=== PATIENT | female | born 1945 | race African-American/Black ===

== ENCOUNTER → 2016-03-08 | Outpatient (CLI) | payer MEDICARE, MEDICAID | LOC: RAD 06:39 | PROVIDERS: ATTEND Internal Medicine | DX: R63.4 Abnormal weight loss (principal); R10.9 Unspecified abdominal pain; R10.2 Pelvic and perineal pain; R07.9 Chest pain, unspecified | CPT/HCPCS: 71260; 74177; 82565 ==

== ENCOUNTER 2016-05-22 18:07 | Emergency (ER) | payer MEDICARE, MEDICAID ==
[2016-05-22] MEDS ORDERED: ASPIRIN 81 MG TABLET, CHEWABLE PO ONE (18:19)
--- NOTE | 2016-05-22 19:04 | EKG REPORT ---
SEVERITY:- ABNORMAL ECG - SINUS RHYTHM RIGHT BUNDLE BRANCH BLOCK ANTERIOR Q WAVES, POSSIBLY DUE TO LVH : Confirmed by: Brennen Stanton MD 22-May-2016 19:03:40
[2016-05-22 19:05] LABS: ABSOLUTE MONOCYTES (AUTO) 0.4 10^3/uL (0.1-1.4); BASOPHILS % (AUTO) 0.5 % (0-2); EOSINOPHILS % (AUTO) 0.5 % (0-6); HEMATOCRIT 32.5 % (36.0-47.0); HEMOGLOBIN 10.6 g/dL (12.0-15.5); HGB HCT DIFFERENCE -0.7; LYMPHOCYTES % (AUTO) 28.5 % (13-45); MEAN CORPUSCULAR HEMOGLOBIN 26.6 pg (27.0-33.4); MEAN CORPUSCULAR HGB CONC 32.6 g/dL (32.0-36.0); MEAN CORPUSCULAR VOLUME 82 fl (80-97); MONOCYTES % (AUTO) 12.5 % (3-13); RED BLOOD COUNT 3.98 10^6/uL (3.72-5.28); RED CELL DISTRIBUTION WIDTH 14.9 % (11.5-14.0); WHITE BLOOD COUNT 3.5 10^3/uL (4.0-10.5)
[2016-05-22 19:22] LABS: ALANINE AMINOTRANSFERASE 31 U/L (9-52); ALKALINE PHOSPHATASE 85 U/L (38-126); ANION GAP 12 (5-19); ASPARTATE AMINO TRANSFERASE 36 U/L (14-36); BILIRUBIN,DIRECT 0.1 mg/dL (0.0-0.4); BILIRUBIN,TOTAL 0.7 mg/dL (0.2-1.3); BLOOD UREA NITROGEN 18 mg/dL (7-20); CALCIUM 9.4 mg/dL (8.4-10.2); CARBON DIOXIDE 25 mmol/L (22-30); CHLORIDE 107 mmol/L (98-107); CREATINE KINASE 141 U/L (30-135); CREATININE RESULT 1.41 mg/dL (0.52-1.25); GLUCOSE 93 mg/dL (75-110); POTASSIUM 4.6 mmol/L (3.6-5.0); SODIUM 143.8 mmol/L (137-145); TOTAL PROTEIN 7.1 g/dL (6.3-8.2)
[2016-05-22 19:34] LABS: CREATINE KINASE MB 0.69 ng/mL (<4.55)
[2016-05-22 19:35] LABS: TROPONIN I < 0.012 ng/mL
[2016-05-22] MEDS ORDERED: FENTANYL CITRATE INJ/PF 100 MCG/2 ML AMPUL IV PRN (19:52)
--- NOTE | 2016-05-22 20:04 | ER Document Report ---
ED General - General Chief Complaint: Chest Pain > 30 Stated Complaint: CHEST PAIN/FALL,HEAD AND WRIST PAIN Notes: Patient is a 70-year-old female with past medical history of congestive heart failure, coronary artery disease, hypertension, hyperlipidemia who presents after an episode of chest pain that preceded a syncopal event when she was walking up the stairs in her home. States she was walking it with some groceries, developed left-sided chest pain that radiated into her neck "and then everything just went black". States she woke up on the ground at the base of the steps. States she has no recollection of the actual event of passing out. At time of arrival she is complaining of pain to her left wrist but denies any ongoing chest pain, shortness of breath, nausea or vomiting. She does describe the pain in her left wrist is a dull, constant, throbbing pain. Moves the wrist worsens the pain. Nothing improves the pain. States she is uncertain of whether or not she hit her head or neck and is currently anticoagulated on dabigatran. No history of similar symptoms in the past although reports that her ejection fraction was low enough that in 2013 and AICD placement was recommended but she declined. TRAVEL OUTSIDE OF THE [place] IN LAST 30 DAYS: No - Related Data Allergies/Adverse Reactions: betamethasone [Betamethasone] Allergy (Intermediate, Verified 05/22/14 12:30) burning skin ceftriaxone sodium [From Rocephin] Allergy (Intermediate, Verified 05/22/16 19: 28) Urticaria ciprofloxacin [From Cipro] Allergy (Intermediate, Verified 05/22/16 19:28) Urticaria clindamycin [Clindamycin] Allergy (Intermediate, Verified 05/22/14 12:30) Urticaria clotrimazole [Clotrimazole] Allergy (Intermediate, Verified 05/22/14 12:30) burning skin diphenhydramine HCl [From Benadryl] Allergy (Intermediate, Verified 05/22/16 19: 28) Urticaria doxycycline [Doxycycline] Allergy (Intermediate, Verified 05/22/16 19:28) Urticaria latex [Latex] Allergy (Intermediate, Verified 05/22/16 19:28) Urticaria metronidazole [From Flagyl] Allergy (Intermediate, Verified 05/22/16 19:28) Urticaria oxycodone [Oxycodone] Allergy (Intermediate, Verified 05/22/16 19:28) Penicillins Allergy (Intermediate, Verified 05/22/16 19:28) Urticaria Sulfa (Sulfonamide Antibiotics) Allergy (Intermediate, Verified 05/22/16 19:28) Urticaria acetaminophen [From Vicodin] Allergy (Verified 05/22/14 12:30) hydrocodone bitartrate [From Vicodin] Allergy (Verified 05/22/16 19:28) mupirocin [From Bactroban] Allergy (Verified 05/22/16 19:28) aspirin [Aspirin] Adverse Reaction (Mild, Verified 05/22/16 19:28) Nausea PAPER TAPE Allergy (Uncoded 05/22/16 19:28) Blisters Past Medical History - General Information source: Patient - Social History Smoking Status: Never Smoker Chew tobacco use (# tins/day): No Frequency of alcohol use: None Drug Abuse: None Lives with: Spouse/Significant other Family History: Reviewed & Not Pertinent Patient has suicidal ideation: No Patient has homicidal ideation: No - Past Medical History Cardiac Medical History: Reports: Hx Coronary Artery Disease, Hx Heart Attack - x 4, Hx Hypercholesterolemia, Hx Hypertension Pulmonary Medical History: Reports: Hx Bronchitis, Hx Pneumonia, Hx Sleep Apnea Denies: Hx Asthma, Hx COPD, Hx Tuberculosis Neurological Medical History: Reports: Hx Cerebrovascular Accident - RIGHT SIDED WEAKNESS, NUMBNESS TINGLING R LEG. Denies: Hx Seizures Endocrine Medical History: Reports: Hx Diabetes Mellitus Type 1, Hx Diabetes Mellitus Type 2 - diet controlled Renal/ Medical History: Reports: Hx Renal Insufficiency. Denies: Hx Peritoneal Dialysis GI Medical History: Reports: Hx Gastroesophageal Reflux Disease, Hx Irritable Bowel Musculoskeltal Medical History: Reports Hx Arthritis Psychiatric Medical History: Reports: Hx Depression Past Surgical History: Reports: Hx Appendectomy, Hx Cardiac Catheterization, Hx Coronary Stent, Hx Hysterectomy, Hx Orthopedic Surgery - Bilateral total knee replacements. Bilateral shoulder surgeries., Hx Tonsillectomy, Hx Umbilical Hernia. Denies: Hx Cardiac Surgery - Immunizations Hx Diphtheria, Pertussis, Tetanus Vaccination: Yes Hx Pneumococcal Vaccination: 04/24/10 Review of Systems - Review of Systems Notes: Constitutional: Negative for fever. HENT: Negative for sore throat. Eyes: Negative for visual changes. Cardiovascular: Positive for chest pain. Positive for syncope Respiratory: Negative for shortness of breath. Gastrointestinal: Negative for abdominal pain, vomiting or diarrhea. Genitourinary: Negative for dysuria. Musculoskeletal: Negative for back pain. Skin: Negative for rash. Neurological: Negative for headaches, weakness or numbness. 10 point ROS negative except as marked above and in HPI. Physical Exam - Vital signs Vitals: Temp Pulse Resp BP Pulse Ox 98.2 F 65 17 136/74 H 100 05/22/16 18:15 05/22/16 18:15 05/22/16 18:15 05/22/16 18:15 05/22/16 18:15 Interpretation: Normal Notes: PHYSICAL EXAMINATION: GENERAL: Well-appearing, no acute distress. HEAD: Atraumatic, normocephalic. EYES: Pupils equal round and reactive to light, extraocular movements intact, sclera anicteric, conjunctiva are normal. ENT: nares patent, no oral pharyngeal trauma. No hemotympanum, no Frank's sign , no raccoon eyes. NECK: No midline cervical spine tenderness. Patient able to move their head to 45 bilaterally without any discomfort. LUNGS: Breath sounds clear to auscultation bilaterally and equal. No wheezes rales or rhonchi. HEART: Regular rate and rhythm without murmurs. CHEST WALL: No ecchymosis over the chest wall. ABDOMEN: Soft, nontender, normoactive bowel sounds. No guarding, no rebound. No abdominal bruising EXTREMITIES: Normal range of motion, no pitting or edema. No long bone deformities. BACK: No midline spinal tenderness, step-offs, or deformities. NEUROLOGICAL: Face symmetric. Tongue protrudes midline. Extraocular motions intact. Pupils are 2 mm and equally reactive. Normal speech, normal gait. 5 out of 5 strength in both the distal and proximal upper and lower extremities bilaterally. Sensation is grossly intact throughout. Finger to nose testing normal. Pronator drift normal. PSYCH: Normal mood, normal affect. SKIN: Warm, Dry, normal turgor, no rashes or lesions noted. Course - Re-evaluation Re-evalutation: 05/22/16 19:55 Patient is a 70-year-old female who presents after a highly concerning story of syncope. Patient does have a history of his chronic congestive heart failure with reported ejection fraction that was low enough that in 2012 she was instructed to have an implanted AICD but declined. She has had 4 myocardial infarctions in the past and her most recent cardiac catheterization was apparently one year ago with angioplasty without stenting. At time of evaluation patient complains of left wrist pain but denies any additional symptoms. She is on Paxil for history of atrial fibrillation. A CT the head and cervical spine were obtained as patient did fall down approximate 7 stairs and are noted to be normal. She has no focal chest or abdominal trauma. No pain in the hips knees or ankles. She has no focal neurologic deficit on exam. Given that I'm very concerned the patient had a dysrhythmia that caused her episode of syncope and subsequent fall, I believe it is most appropriate that she be transferred to Center with interventional cardiology for consideration repeat echocardiogram, and possible placement of an AICD. Have contacted [facility] and await a call back. 05/22/16 20:35 I have discussed this case with the hospitalist at [facility] . She is accepted for admission. The patient has remained without chest pain. Remainder of laboratory unremarkable this time. 05/22/16 23:32 Second troponin has remained normal. Awaiting transfer. She remains hemodynamically stable without chest pain. X-ray of the left wrist is noted to be normal 05/23/16 01:06 Transport from [facility] has arrived to transfer the patient. She remains without chest pain and is hemodynamically stable. She is cleared for transfer - Vital Signs Vital signs: Temp Pulse Resp BP Pulse Ox 97.6 F 67 15 122/67 98 05/22/16 18:35 05/22/16 18:35 05/22/16 20:00 05/23/16 00:01 05/23/16 00:01 - Laboratory Result Diagrams: 05/22/16 18:47 05/22/16 18:47 Laboratory results interpreted by me: 05/22/16 05/22/16 18:47 18:47 WBC 3.5 L Hgb 10.6 L Hct 32.5 L MCH 26.6 L RDW 14.9 H Plt Count 145 L Creatinine 1.41 H Est GFR ( Amer) 45 L Est GFR (Non-Af Amer) 37 L Creatine Kinase 141 H - Diagnostic Test Radiology reviewed: Image reviewed, Reports reviewed Radiology results interpreted by me: 05/22/16 20:37 CT head: No acute intracranial Chest x-ray: No pneumothorax or wide mediastinum - EKG Interpretation by Me Additional EKG results interpreted by me: 05/22/16 20:37 Normal sinus rhythm. Rate 68. Right bundle-branch block. QTC is 477. Discharge - Discharge Clinical Impression: Syncope Qualifiers: Syncope type: unspecified Qualified Code(s): R55 - Syncope and collapse Fall down stairs Qualifiers: Encounter type: initial encounter Qualified Code(s): W10.8XXA - Fall (on) (from ) other stairs and steps, initial encounter Condition: Fair Disposition: [facility] Referrals: RYDER HERNANDEZ MD [Primary Care Provider] - Follow up as needed
[2016-05-22] MEDS ORDERED: ONDANSETRON HCL INJ/PF 4 MG/2 ML SDV IV ONE (23:22)
[2016-05-23 00:25] VITALS: BP 122/67
== END 2016-05-23 01:05 | disposition short-term general hospital (02) ==
LOC: ER 18:07
DX: R55 Syncope and collapse (principal); R07.9 Chest pain, unspecified; R51 Headache; M25.539 Pain in unspecified wrist; I50.9 Heart failure, unspecified; I10 Essential (primary) hypertension; E78.00 Pure hypercholesterolemia, unspecified; I69.951 Hemiplegia and hemiparesis following unspecified cerebrovascular disease affecting right dominant side; E11.9 Type 2 diabetes mellitus without complications; K21.9 Gastro-esophageal reflux disease without esophagitis; Z91.040 Latex allergy status; Z88.3 Allergy status to other anti-infective agents; Z88.0 Allergy status to penicillin; Z88.2 Allergy status to sulfonamides; Z88.6 Allergy status to analgesic agent; I25.2 Old myocardial infarction; Z96.653 Presence of artificial knee joint, bilateral; Z90.710 Acquired absence of both cervix and uterus
CPT/HCPCS: 93005; 99285; 96374; 96375; 36415; 82553; 82550; 85025; 80053; 84484; 71010; 73110; 70450; 72125; 93010; J3010; J2405

== ENCOUNTER → 2016-08-01 | Outpatient (CLI) | payer MEDICARE, MEDICAID ==
[2016-08-01 11:48] LABS: ANION GAP 13 (5-19); BLOOD UREA NITROGEN 22 mg/dL (7-20); CALCIUM 9.5 mg/dL (8.4-10.2); CARBON DIOXIDE 24 mmol/L (22-30); CHLORIDE 107 mmol/L (98-107); CREATININE RESULT 1.41 mg/dL (0.52-1.25); GLUCOSE 90 mg/dL (75-110); POTASSIUM 5.3 mmol/L (3.6-5.0); SODIUM 144.1 mmol/L (137-145)
== END ==
LOC: OD 10:13
PROVIDERS: ATTEND Physician Assistant
DX: E87.5 Hyperkalemia (principal)
CPT/HCPCS: 36415; 80048

== ENCOUNTER 2016-08-12 11:14 | Emergency (ER) | payer MEDICARE, MEDICAID ==
[2016-08-12] MEDS ORDERED: NORMAL SALINE 1000 ML 1,000 ML IV PRN (11:23)
--- NOTE | 2016-08-12 11:25 | ER Document Report ---
ED Dizziness/Weakness - General Stated Complaint: DIZZINESS Time Seen by Provider: 08/12/16 11:18 Mode of Arrival: Stretcher Information source: Patient TRAVEL OUTSIDE OF THE [place] IN LAST 30 DAYS: No - HPI Patient complains to provider of: Dizziness Onset: Just prior to arrival Onset/Duration: Sudden Quality of pain: Achy Severity: Mild Associated symptoms: Chest pain, Dizzy, Lightheaded Baseline gait: Walks w/o assistance Notes: Patient is a 70-year-old female who was sent from local oncologist office for complaints of dizziness, with lightheadedness, she reports a history of similar symptoms previously, mild chest pain with dizziness which has since resolved, dizziness worsens when she goes from sitting to standing position, she denies any shortness of breath, she does report that she was fasting for blood work this morning but did take her blood pressure medications - Related Data Allergies/Adverse Reactions: betamethasone [Betamethasone] Allergy (Intermediate, Verified 05/22/14 12:30) burning skin ceftriaxone sodium [From Rocephin] Allergy (Intermediate, Verified 05/22/16 19: 28) Urticaria ciprofloxacin [From Cipro] Allergy (Intermediate, Verified 05/22/16 19:28) Urticaria clindamycin [Clindamycin] Allergy (Intermediate, Verified 05/22/14 12:30) Urticaria clotrimazole [Clotrimazole] Allergy (Intermediate, Verified 05/22/14 12:30) burning skin diphenhydramine HCl [From Benadryl] Allergy (Intermediate, Verified 05/22/16 19: 28) Urticaria doxycycline [Doxycycline] Allergy (Intermediate, Verified 05/22/16 19:28) Urticaria latex [Latex] Allergy (Intermediate, Verified 05/22/16 19:28) Urticaria metronidazole [From Flagyl] Allergy (Intermediate, Verified 05/22/16 19:28) Urticaria oxycodone [Oxycodone] Allergy (Intermediate, Verified 05/22/16 19:28) Penicillins Allergy (Intermediate, Verified 05/22/16 19:28) Urticaria Sulfa (Sulfonamide Antibiotics) Allergy (Intermediate, Verified 05/22/16 19:28) Urticaria acetaminophen [From Vicodin] Allergy (Verified 05/22/14 12:30) hydrocodone bitartrate [From Vicodin] Allergy (Verified 05/22/16 19:28) mupirocin [From Bactroban] Allergy (Verified 05/22/16 19:28) aspirin [Aspirin] Adverse Reaction (Mild, Verified 05/22/16 19:28) Nausea PAPER TAPE Allergy (Uncoded 05/22/16 19:28) Blisters Past Medical History - General Information source: Patient - Social History Smoking Status: Never Smoker Family History: Reviewed & Not Pertinent - Past Medical History Cardiac Medical History: Reports: Hx Coronary Artery Disease, Hx Heart Attack - x 4, Hx Hypercholesterolemia, Hx Hypertension Pulmonary Medical History: Reports: Hx Bronchitis, Hx Pneumonia, Hx Sleep Apnea Denies: Hx Asthma, Hx COPD, Hx Tuberculosis Neurological Medical History: Reports: Hx Cerebrovascular Accident - RIGHT SIDED WEAKNESS, NUMBNESS TINGLING R LEG. Denies: Hx Seizures Endocrine Medical History: Reports: Hx Diabetes Mellitus Type 1, Hx Diabetes Mellitus Type 2 - diet controlled Renal/ Medical History: Reports: Hx Renal Insufficiency. Denies: Hx Peritoneal Dialysis GI Medical History: Reports: Hx Gastroesophageal Reflux Disease, Hx Irritable Bowel Musculoskeltal Medical History: Reports Hx Arthritis Psychiatric Medical History: Reports: Hx Depression Past Surgical History: Reports: Hx Appendectomy, Hx Cardiac Catheterization, Hx Coronary Stent, Hx Hysterectomy, Hx Orthopedic Surgery - Bilateral total knee replacements. Bilateral shoulder surgeries., Hx Tonsillectomy, Hx Umbilical Hernia. Denies: Hx Cardiac Surgery - Immunizations Hx Diphtheria, Pertussis, Tetanus Vaccination: Yes Hx Pneumococcal Vaccination: 04/24/10 Review of Systems - Review of Systems Constitutional: No symptoms reported EENT: No symptoms reported Cardiovascular: See HPI Respiratory: No symptoms reported Gastrointestinal: No symptoms reported Genitourinary: No symptoms reported Female Genitourinary: No symptoms reported Musculoskeletal: No symptoms reported Skin: No symptoms reported Hematologic/Lymphatic: No symptoms reported Neurological/Psychological: No symptoms reported -: Yes All other systems reviewed and negative Physical Exam - Vital signs Vitals: Temp Pulse Resp BP Pulse Ox 97.7 F 52 L 16 135/84 H 100 08/12/16 11:19 08/12/16 11:19 08/12/16 11:19 08/12/16 11:19 08/12/16 11:19 Interpretation: Normal - General General appearance: Appears well, Alert - HEENT Head: Normocephalic, Atraumatic Eyes: Normal Pupils: PERRL - Respiratory Respiratory status: No respiratory distress Chest status: Nontender Breath sounds: Normal Chest palpation: Normal - Cardiovascular Rhythm: Regular Heart sounds: Normal auscultation Murmur: No - Abdominal Inspection: Normal Distension: No distension Bowel sounds: Normal Tenderness: Nontender Organomegaly: No organomegaly - Back Back: Normal, Nontender - Extremities General upper extremity: Normal inspection, Nontender, Normal color, Normal ROM , Normal temperature General lower extremity: Normal inspection, Nontender, Normal color, Normal ROM , Normal temperature, Normal weight bearing. No: Guillermo's sign - Neurological Neuro grossly intact: Yes Cognition: Normal Orientation: AAOx4 Binu Coma Scale Eye Opening: Spontaneous Turrell Coma Scale Verbal: Oriented Binu Coma Scale Motor: Obeys Commands Binu Coma Scale Total: 15 Speech: Normal Motor strength normal: LUE, RUE, LLE, RLE Sensory: Normal - Psychological Associated symptoms: Normal affect, Normal mood - Skin Skin Temperature: Warm Skin Moisture: Dry Skin Color: Normal Course - Re-evaluation Re-evalutation: 08/12/16 14:03 Reports feeling much better, able to ambulate without dizziness or difficulty, labs were discussed with patient at bedside which are relatively unremarkable, physical exam findings unremarkable with stable vital signs, patient will be discharged with instructions for follow-up and advised to return if any additional concerns, patient acknowledges understanding and agreement with this plan - Vital Signs Vital signs: Temp Pulse Resp BP Pulse Ox 97.7 F 52 L 16 135/84 H 100 08/12/16 11:19 08/12/16 11:19 08/12/16 11:19 08/12/16 11:19 08/12/16 11:19 - Laboratory Result Diagrams: 08/12/16 11:33 08/12/16 11:33 Laboratory results interpreted by me: 08/12/16 08/12/16 08/12/16 11:33 11:33 13:14 WBC 2.4 L Hgb 11.4 L MCH 25.6 L MCHC 31.4 L RDW 15.2 H Absolute Neutrophils 1.1 L BUN 22 H Creatinine 1.29 H Est GFR ( Amer) 50 L Est GFR (Non-Af Amer) 41 L Urine Blood SMALL H Ur Leukocyte Esterase TRACE H - Diagnostic Test Radiology reviewed: Image reviewed, Reports reviewed - EKG Interpretation by Me EKG shows normal: Sinus rhythm Rate: Bradycardia [place]/QRS: RBBB, IVCD When compared to previous EKG there are: No significant change Discharge - Discharge Clinical Impression: Dizziness Condition: Stable Disposition: HOME, SELF-CARE Instructions: Dizziness ([facility]) Additional Instructions: Follow up with your primary care provider in one to 2 days. Return to the emergency room immediately if symptoms worsen or any additional concerns. Referrals: RYDER HERNANDEZ MD [Primary Care Provider] - Follow up as needed
[2016-08-12 11:56] LABS: ABSOLUTE LYMPHOCYTES (AUTO) 0.9 10^3/uL (0.5-4.7); ABSOLUTE MONOCYTES (AUTO) 0.3 10^3/uL (0.1-1.4); ABSOLUTE NEUT (AUTO) 1.1 10^3/uL (1.7-8.2); BASOPHILS % (AUTO) 0.3 % (0-2); EOSINOPHILS % (AUTO) 0.8 % (0-6); HEMATOCRIT 36.3 % (36.0-47.0); HEMOGLOBIN 11.4 g/dL (12.0-15.5); HGB HCT DIFFERENCE -2.1; LYMPHOCYTES % (AUTO) 39.5 % (13-45); MEAN CORPUSCULAR HEMOGLOBIN 25.6 pg (27.0-33.4); MEAN CORPUSCULAR HGB CONC 31.4 g/dL (32.0-36.0); MEAN CORPUSCULAR VOLUME 82 fl (80-97); MONOCYTES % (AUTO) 12.7 % (3-13); RED BLOOD COUNT 4.45 10^6/uL (3.72-5.28); RED CELL DISTRIBUTION WIDTH 15.2 % (11.5-14.0); SEGMENTED NEUTROPHILS % (AUTO) 46.7 % (42-78); WHITE BLOOD COUNT 2.4 10^3/uL (4.0-10.5)
[2016-08-12 12:17] LABS: ALANINE AMINOTRANSFERASE 25 U/L (9-52); ALBUMIN 4.1 g/dL (3.5-5.0); ALKALINE PHOSPHATASE 114 U/L (38-126); ANION GAP 10 (5-19); ASPARTATE AMINO TRANSFERASE 28 U/L (14-36); BILIRUBIN,DIRECT 0.3 mg/dL (0.0-0.4); BILIRUBIN,TOTAL 0.6 mg/dL (0.2-1.3); BLOOD UREA NITROGEN 22 mg/dL (7-20); CALCIUM 9.3 mg/dL (8.4-10.2); CARBON DIOXIDE 24 mmol/L (22-30); CHLORIDE 107 mmol/L (98-107); CREATINE KINASE 99 U/L (30-135); CREATININE RESULT 1.29 mg/dL (0.52-1.25); GLUCOSE 83 mg/dL (75-110); POTASSIUM 4.8 mmol/L (3.6-5.0); SODIUM 141.2 mmol/L (137-145); TOTAL PROTEIN 8.1 g/dL (6.3-8.2)
[2016-08-12 12:27] LABS: CREATINE KINASE MB 0.54 ng/mL (<4.55)
[2016-08-12 12:28] LABS: TROPONIN I < 0.012 ng/mL
--- NOTE | 2016-08-12 12:45 | EKG REPORT ---
SEVERITY:- ABNORMAL ECG - SINUS RHYTHM IVCD, CONSIDER ATYPICAL RBBB ANTERIOR Q WAVES, POSSIBLY DUE TO LVH : Confirmed by: Brennen Stanton MD 12-Aug-2016 12:44:28
--- NOTE | 2016-08-12 12:56 | RADIOLOGY REPORT (SQ) ---
EXAM DESCRIPTION: CHEST PA/LAT COMPLETED DATE/TIME: 08/12/2016 12:47 pm REASON FOR STUDY: cp COMPARISON: 05/22/2014 TECHNIQUE: Frontal and lateral radiographic views of the chest acquired. NUMBER OF VIEWS: Two view. LIMITATIONS: None. FINDINGS: LUNGS AND PLEURA: No opacities, masses or pneumothorax. No pleural effusion. MEDIASTINUM AND HILAR STRUCTURES: No masses or contour abnormalities. HEART AND VASCULAR STRUCTURES: Heart normal size. No evidence for failure. BONES: Bilateral absence the distal clavicle stable prior study. Arthritic change at the shoulders a nd thoracic spine. HARDWARE: None in the chest. OTHER: No other significant finding. IMPRESSION: No acute cardiopulmonary changes. Arthritic changes seen both shoulders with absence of distal clavicles. TECHNICAL DOCUMENTATION: JOB ID: [id number] [employer]- All Rights Reserved
[2016-08-12 13:50] LABS: APPEARANCE,URINE CLEAR; BILIRUBIN,URINE NEGATIVE (NEGATIVE); GLUCOSE, URINE NEGATIVE (NEGATIVE); KETONES,URINE NEGATIVE (NEGATIVE); LEUKOCYTE ESTERASE,URINE TRACE (NEGATIVE); NITRITE,URINE NEGATIVE (NEGATIVE); PROTEIN,URINE NEGATIVE (NEGATIVE); URINE SPECIFIC GRAVITY 1.004; UROBILINOGEN,URINE NEGATIVE mg/dL (<2.0)
[2016-08-12 14:31] VITALS: BP 125/76
== END 2016-08-12 14:39 | disposition home or self-care (01) ==
LOC: ER 11:14
DX: R42 Dizziness and giddiness (principal); R07.9 Chest pain, unspecified; E11.9 Type 2 diabetes mellitus without complications; I25.10 Atherosclerotic heart disease of native coronary artery without angina pectoris; E78.00 Pure hypercholesterolemia, unspecified; I10 Essential (primary) hypertension; I69.951 Hemiplegia and hemiparesis following unspecified cerebrovascular disease affecting right dominant side; Z88.3 Allergy status to other anti-infective agents; Z90.710 Acquired absence of both cervix and uterus; Z96.653 Presence of artificial knee joint, bilateral; I25.2 Old myocardial infarction
CPT/HCPCS: 93005; 99284; 96360; 36415; 87086; 82553; 82550; 85025; 80053; 81001; 84484; 71020; 93010; J7030

== ENCOUNTER → 2016-08-26 | Outpatient (CLI) | payer MEDICARE, MEDICAID ==
--- NOTE | 2016-08-27 08:18 | WOMENS IMAGING REPORT ---
EXAM DESCRIPTION: 3D SCREENING MAMMO BILAT COMPLETED DATE/TIME: 08/26/2016 11:47 am REASON FOR STUDY: ROUTINE SCREENING; Z12.31 Z12.31 ENCNTR SCREEN MAMMOGRAM FOR MALIGNANT NEOPLASM O F SHARRON COMPARISON: Multiple since 2010 TECHNIQUE: Standard craniocaudal and mediolateral oblique views of each breast recorded using digita l acquisition and breast tomosynthesis. LIMITATIONS: None. FINDINGS: Findings present which are benign by mammographic criteria. No suspicious masses, calcifi cations or architectural distortion. Pertinent benign findings: Stable right breast stereotactic clip, stable bilateral skin and vascular calcifications Read with the assistance of CAD. .[facility] - R2 Cenova Version 1.3 .[facility] - R2 Cenova Version 1.3 .[facility] - R2 Cenova Version 2.4 .[facility] R2 Cenova Version 2.4 .[facility] - R2 [facility] [employer]er Version 9.2 Benign mammographic findings may include one or more of the following: Smooth masses, popcorn/rim/co arse calcifications, asymmetries, post-procedure changes, and lesions with long-standing stability. IMPRESSION: BENIGN MAMMOGRAPHIC FINDINGS. BIRADS 2 BREAST DENSITY: b. There are scattered areas of fibroglandular density. BIRAD: 2 BENIGN FINDING(S) RECOMMENDATION: RECOMMENDATION: ROUTINE SCREENING COMMENT: The patient has been notified of the results by letter per SA requirements. Additional no tification policies are in place for contacting patient with suspicious or incomplete findings. Quality ID #[id number]: The [employer] recommends an annual screening mammogram for women aged 40 years or over. This facility utilizes a reminder system to ensure that all patients receive reminder letters, and/or direct phone calls for appointments. This includes reminders for routine scr eening mammograms, diagnostic mammograms, or other Breast Imaging Interventions when appropriate. Th is patient will be placed in the appropriate reminder system. The [employer] (ACR) has developed recommendations for screening MRI of the breast s in certain patient populations, to be used in conjunction with mammography. Breast MRI surveillanc e may be appropriate for women with more than 20% lifetime risk of developing breast cancer as deter mined by genetic testing, significant family history of the disease, or history of mantle radiation f or Hodgkins Disease. ACR Practice Guidelines 2008. DBT Technology DBT is a type of tomographic mammography. With conventional mammography, overlapping breast tissue ma y make lesions difficult to detect, even with good compression. DBT uses an x-ray tube that rotates a round the breast, taking images at different angles. These images are then combined to create thin sl ices of the breast that the radiologist can view as a 3D reconstruction. The Gemfire unit can perform full-field digital mammograms (2D imaging); or DBT (3D imaging); or both, in a combination mode that quickly performs both the mammogram and the tomosynthesis scan while the breast is still compressed. PQRS 6045F: Fluoroscopic imaging is not utilized for breast tomosynthesis. TECHNICAL DOCUMENTATION: FINDING NUMBER: (1) ASSESSMENT: (1) JOB ID: [id number] [employer]- All Rights Reserved
== END ==
LOC: WI 11:35
PROVIDERS: ATTEND Family Medicine
DX: Z12.31 Encounter for screening mammogram for malignant neoplasm of breast (principal)
CPT/HCPCS: 77063; G0202; 77067

== ENCOUNTER → 2016-10-28 | Outpatient (CLI) | payer MEDICARE, MEDICAID ==
--- NOTE | 2016-10-28 12:45 | RADIOLOGY REPORT (SQ) ---
EXAM DESCRIPTION: FOOT RIGHT COMPLETE COMPLETED DATE/TIME: 10/28/2016 12:25 pm REASON FOR STUDY: PAIN IN RIGHT FOOT, M79.671 PAIN IN RIGHT FOOT M25.551 PAIN IN RIGHT HIP COMPARISON: None. NUMBER OF VIEWS: Three views. TECHNIQUE: AP, lateral and oblique radiographic images acquired of the right foot. LIMITATIONS: None. FINDINGS: MINERALIZATION: Normal. BONES: No fracture or dislocation. Plantar and dorsal calcaneal spurs are present. JOINTS: No effusions. SOFT TISSUES: No soft tissue swelling. No foreign body. OTHER: No other significant finding. IMPRESSION: Calcaneal spurs with no acute osseous abnormality. TECHNICAL DOCUMENTATION: JOB ID: [id number] [employer]- All Rights Reserved
--- NOTE | 2016-10-28 12:49 | RADIOLOGY REPORT (SQ) ---
EXAM DESCRIPTION: HIP RIGHT AP/LATERAL COMPLETED DATE/TIME: 10/28/2016 12:25 pm REASON FOR STUDY: PAIN IN RIGHT HIP M79.671 PAIN IN RIGHT FOOT M25.551 PAIN IN RIGHT HIP COMPARISON: None. NUMBER OF VIEWS: Two views. TECHNIQUE: AP pelvis and additional frog-leg view of the right hip. LIMITATIONS: None. FINDINGS: MINERALIZATION: Normal. RIGHT HIP: No fracture or dislocation. No worrisome bone lesions. LEFT HIP: No fracture or dislocation. No worrisome bone lesions. PUBIS AND ISCHIUM: No fracture. PELVIS: No fracture. SACRUM: No fracture or dislocation. No worrisome bone lesions. LOWER LUMBAR SPINE: Lower lumbar degenerative changes are present. SOFT TISSUES: No findings. OTHER: No other significant finding. IMPRESSION: Lower lumbar degenerative changes with normal right hip. TECHNICAL DOCUMENTATION: JOB ID: [id number] [employer]- All Rights Reserved
== END ==
LOC: OD 11:39
PROVIDERS: ATTEND Family Medicine
DX: M79.671 Pain in right foot (principal); M25.551 Pain in right hip

== ENCOUNTER → 2017-02-04 | Outpatient (CLI) | payer MEDICARE, MEDICAID ==
--- NOTE | 2017-02-04 14:31 | RADIOLOGY REPORT (SQ) ---
EXAM DESCRIPTION: CHEST PA/LAT COMPLETED DATE/TIME: 02/04/2017 2:13 pm REASON FOR STUDY: ATHSCL HEART DISEASE OF [place] CORONARY ARTERY W/O ANG PCTRS,COUGH COMPARISON: None. EXAM PARAMETERS: NUMBER OF VIEWS: two views TECHNIQUE: Digital Frontal and Lateral radiographic views of the chest acquired. RADIATION DOSE: NA LIMITATIONS: none FINDINGS: LUNGS AND PLEURA: No opacities, masses or pneumothorax. No pleural effusion. MEDIASTINUM AND HILAR STRUCTURES: No masses or contour abnormalities. HEART AND VASCULAR STRUCTURES: Heart normal size. No evidence for failure. BONES: No acute findings. Moderate thoracic spondylosis. HARDWARE: None in the chest. OTHER: No other significant finding. IMPRESSION: NO SIGNIFICANT RADIOGRAPHIC FINDING IN THE CHEST. TECHNICAL DOCUMENTATION: JOB ID: [id number] [employer]- All Rights Reserved
== END ==
LOC: RAD 13:53
PROVIDERS: ATTEND Family Medicine
DX: I25.10 Atherosclerotic heart disease of native coronary artery without angina pectoris (principal); R05 Cough
CPT/HCPCS: 71020

== ENCOUNTER 2017-02-26 13:59 | Emergency (ER) | payer MEDICARE, MEDICAID ==
[2017-02-26 14:34] LABS: ABSOLUTE LYMPHOCYTES (AUTO) 0.9 10^3/uL (0.5-4.7); ABSOLUTE MONOCYTES (AUTO) 0.3 10^3/uL (0.1-1.4); ABSOLUTE NEUT (AUTO) 1.3 10^3/uL (1.7-8.2); BASOPHILS % (AUTO) 0.3 % (0-2); EOSINOPHILS % (AUTO) 0.9 % (0-6); HEMATOCRIT 37.2 % (36.0-47.0); LYMPHOCYTES % (AUTO) 35.5 % (13-45); MEAN CORPUSCULAR HEMOGLOBIN 26.1 pg (27.0-33.4); MEAN CORPUSCULAR HGB CONC 32.3 g/dL (32.0-36.0); MEAN CORPUSCULAR VOLUME 81 fl (80-97); MONOCYTES % (AUTO) 12.7 % (3-13); PLATELET COUNT 162 10^3/uL (150-450); RED CELL DISTRIBUTION WIDTH 16.7 % (11.5-14.0); SEGMENTED NEUTROPHILS % (AUTO) 50.6 % (42-78); TOTAL CELLS COUNTED % (AUTO) 100 %; WHITE BLOOD COUNT 2.7 10^3/uL (4.0-10.5)
[2017-02-26 14:56] LABS: ALANINE AMINOTRANSFERASE 24 U/L (9-52); ALBUMIN 4.3 g/dL (3.5-5.0); ALKALINE PHOSPHATASE 108 U/L (38-126); ANION GAP 5 (5-19); ASPARTATE AMINO TRANSFERASE 60 U/L (14-36); BILIRUBIN,DIRECT 0.3 mg/dL (0.0-0.4); BILIRUBIN,TOTAL 0.6 mg/dL (0.2-1.3); BLOOD UREA NITROGEN 24 mg/dL (7-20); CALCIUM 9.8 mg/dL (8.4-10.2); CARBON DIOXIDE 28 mmol/L (22-30); CHLORIDE 107 mmol/L (98-107); CREATINE KINASE 95 U/L (30-135); GLUCOSE 87 mg/dL (75-110); POTASSIUM 5.2 mmol/L (3.6-5.0); SODIUM 140.2 mmol/L (137-145); TOTAL PROTEIN 7.9 g/dL (6.3-8.2)
[2017-02-26 15:10] LABS: CREATINE KINASE MB 0.63 ng/mL (<4.55)
[2017-02-26 15:12] LABS: TROPONIN I < 0.012 ng/mL
[2017-02-26 15:17] LABS: APPEARANCE,URINE CLEAR; BILIRUBIN,URINE NEGATIVE (NEGATIVE); COLOR,URINE STRAW; GLUCOSE, URINE NEGATIVE (NEGATIVE); KETONES,URINE NEGATIVE (NEGATIVE); LEUKOCYTE ESTERASE,URINE TRACE (NEGATIVE); NITRITE,URINE NEGATIVE (NEGATIVE); PROTEIN,URINE NEGATIVE (NEGATIVE); URINE SPECIFIC GRAVITY 1.004; UROBILINOGEN,URINE NEGATIVE mg/dL (<2.0)
[2017-02-26] MEDS ORDERED: NORMAL SALINE 1000 ML 1,000 ML IV ONE (16:13)
--- NOTE | 2017-02-26 16:16 | ER Document Report ---
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 They were trying to get blood on her. Began to feel like she is going to pass out. Mild chest pain. Did not have a full syncopal episode. Has been complaining of headaches as well for the last month. Had a OK approximately 6 months ago. She thinks that possibly she had a stent placed by Dr. Talbert but does not remember. Denies any chest pain at this time. Patient states that she is hungry. Wants to go home. TRAVEL OUTSIDE OF THE [place] IN LAST 30 DAYS: No - HPI Onset: Just prior to arrival Onset/Duration: Sudden Quality of pain: Achy Severity: Mild Pain Level: 0 Exacerbated by: Denies - Related Data Allergies/Adverse Reactions: betamethasone [Betamethasone] Allergy (Intermediate, Verified 05/22/14 12:30) burning skin ceftriaxone sodium [From Rocephin] Allergy (Intermediate, Verified 05/22/16 19: 28) Urticaria ciprofloxacin [From Cipro] Allergy (Intermediate, Verified 05/22/16 19:28) Urticaria clindamycin [Clindamycin] Allergy (Intermediate, Verified 05/22/14 12:30) Urticaria clotrimazole [Clotrimazole] Allergy (Intermediate, Verified 05/22/14 12:30) burning skin diphenhydramine HCl [From Benadryl] Allergy (Intermediate, Verified 05/22/16 19: 28) Urticaria doxycycline [Doxycycline] Allergy (Intermediate, Verified 05/22/16 19:28) Urticaria latex [Latex] Allergy (Intermediate, Verified 05/22/16 19:28) Urticaria metronidazole [From Flagyl] Allergy (Intermediate, Verified 05/22/16 19:28) Urticaria oxycodone [Oxycodone] Allergy (Intermediate, Verified 05/22/16 19:28) Penicillins Allergy (Intermediate, Verified 05/22/16 19:28) Urticaria Sulfa (Sulfonamide Antibiotics) Allergy (Intermediate, Verified 05/22/16 19:28) Urticaria acetaminophen [From Vicodin] Allergy (Verified 05/22/14 12:30) hydrocodone bitartrate [From Vicodin] Allergy (Verified 05/22/16 19:28) mupirocin [From Bactroban] Allergy (Verified 05/22/16 19:28) aspirin [Aspirin] Adverse Reaction (Mild, Verified 05/22/16 19:28) Nausea PAPER TAPE Allergy (Uncoded 05/22/16 19:28) Blisters Past Medical History - General Information source: Patient - Social History Smoking Status: Never Smoker Frequency of alcohol use: None Drug Abuse: None Family History: Reviewed & Not Pertinent Patient has suicidal ideation: No Patient has homicidal ideation: No - Past Medical History Cardiac Medical History: Reports: Hx Coronary Artery Disease, Hx Heart Attack - x 4, Hx Hypercholesterolemia, Hx Hypertension Pulmonary Medical History: Reports: Hx Bronchitis, Hx Pneumonia, Hx Sleep Apnea Denies: Hx Asthma, Hx COPD, Hx Tuberculosis Neurological Medical History: Reports: Hx Cerebrovascular Accident - RIGHT SIDED WEAKNESS, NUMBNESS TINGLING R LEG. Denies: Hx Seizures Endocrine Medical History: Reports: Hx Diabetes Mellitus Type 1, Hx Diabetes Mellitus Type 2 - diet controlled Renal/ Medical History: Reports: Hx Renal Insufficiency. Denies: Hx Peritoneal Dialysis GI Medical History: Reports: Hx Gastroesophageal Reflux Disease, Hx Irritable Bowel, Hx Pancreatitis Musculoskeltal Medical History: Reports Hx Arthritis Psychiatric Medical History: Reports: Hx Depression Past Surgical History: Reports: Hx Appendectomy, Hx Cardiac Catheterization, Hx Coronary Stent, Hx Hysterectomy, Hx Orthopedic Surgery - Bilateral total knee replacements. Bilateral shoulder surgeries., Hx Tonsillectomy, Hx Umbilical Hernia. Denies: Hx Cardiac Surgery - Immunizations Hx Diphtheria, Pertussis, Tetanus Vaccination: Yes Hx Pneumococcal Vaccination: 04/24/10 Review of Systems - Review of Systems Constitutional: No symptoms reported EENT: No symptoms reported Cardiovascular: Chest pain, Dizziness, Lightheaded Respiratory: No symptoms reported Gastrointestinal: No symptoms reported Genitourinary: No symptoms reported Female Genitourinary: No symptoms reported Musculoskeletal: No symptoms reported Skin: No symptoms reported Hematologic/Lymphatic: No symptoms reported Neurological/Psychological: Headaches Physical Exam - Vital signs Vitals: Resp BP Pulse Ox 15 148/80 H 100 02/26/17 14:52 02/26/17 14:52 02/26/17 14:52 Course - Re-evaluation Re-evalutation: 02/26/17 17:36 Well-appearing. No acute distress. 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 They could not get blood out of her. They tried several times to try and get blood on her. Patient felt like she was going to faint. Did state that she had some mild chest pain at that time. EMS was called. Physician was on-site and evaluated her. Patient was stable. Patient endorses that she is followed by Dr. Talbert at [facility] as her credit review analyst. Had a recent OK with stent placement approximately 6 months ago. Will attempt to contact Dr. Talbert at this time for further guidance on the treatment of this patient. 02/26/17 17:[address] Montalvo who is on-call with Dr. Talbert. Patient has had a recent heart monitor as well as recent cardiac catheterization. Patient has no stents. There were no interventions for a mild stenosis of her diagonal. They are medically managing her at this time. He does not recommend doing anything further other than getting second troponin on her. If second troponin is elevated then recommends transfer. Will do that at this time. 02/26/17 20:33 Repeat cardiac troponin I unchanged. Based on recommendations of credit review analyst will DC at this time. - Vital Signs Vital signs: Temp Pulse Resp BP Pulse Ox 14 146/70 H 97 02/26/17 18:00 02/26/17 18:00 02/26/17 18:00 - Laboratory Result Diagrams: 02/26/17 14:15 02/26/17 14:15 Laboratory results interpreted by me: 02/26/17 02/26/17 02/26/17 14:15 14:15 14:50 WBC 2.7 L MCH 26.1 L RDW 16.7 H Absolute Neutrophils 1.3 L Potassium 5.2 H BUN 24 H Creatinine 1.33 H Est GFR ( Amer) 48 L Est GFR (Non-Af Amer) 40 L AST 60 H Urine Blood SMALL H Ur Leukocyte Esterase TRACE H - EKG Interpretation by Me EKG shows normal: Sinus rhythm, Intervals, QRS Complexes, ST-T Waves [place]/QRS: Left axis deviation, RBBB When compared to previous EKG there are: No significant change Discharge - Discharge Clinical Impression: Near syncope Condition: Good Disposition: HOME, SELF-CARE Instructions: Near Syncopal Episode ([facility]) Additional Instructions: Please follow-up with your credit review analyst and regular doctor. If you develop any worsening symptoms please return. Referrals: RYDRE HERNANDEZ MD [Primary Care Provider] - Follow up as needed
--- NOTE | 2017-02-26 16:45 | RADIOLOGY REPORT (SQ) ---
EXAM DESCRIPTION: CT HEAD WITHOUT COMPLETED DATE/TIME: 02/26/2017 4:31 pm REASON FOR STUDY: Headache with syncope hx of malignancy COMPARISON: None. TECHNIQUE: Axial images acquired through the brain without intravenous contrast. Images reviewed wi th bone, brain and subdural windows. Images stored on PACS. All CT scanners at this facility use dose modulation, iterative reconstruction, and/or weight based d osing when appropriate to reduce radiation dose to as low as reasonably achievable (ALARA). [facility]: Dose Right [facility]: CareDose [facility]: Dose Right [facility]: Teradose 4D [facility]: Smart [employer] RADIATION DOSE: CT Rad equipment meets quality standard of care and radiation dose reduction techniq ues were employed. CTDIvol: 64.6 mGy. DLP: 1163 mGy-cm. mGy. LIMITATIONS: None. FINDINGS: VENTRICLES: Normal size and contour. CEREBRUM: No masses. No hemorrhage. No midline shift. No evidence for acute infarction. Normal gra y/white matter differentiation. No areas of low density in the white matter. Benign-appearing dural calcification and basal ganglion calcification not felt to be clinically significant. CEREBELLUM: No masses. No hemorrhage. No alteration of density. No evidence for acute infarction. EXTRAAXIAL SPACES: No fluid collections. No masses. ORBITS AND GLOBE: No intra- or extraconal masses. Normal contour of globe without masses. CALVARIUM: No fracture. PARANASAL SINUSES: No fluid or mucosal thickening. SOFT TISSUES: No mass or hematoma. OTHER: No other significant finding. IMPRESSION: No acute or significant abnormality involving the brain. EVIDENCE OF ACUTE STROKE: NO. COMMENT: Quality ID # [id number]: Final reports with documentation of one or more dose reduction techniques (e.g., Automated exposure control, adjustment of the mA and/or kV according to patient size, use of iterative reconstruction technique) TECHNICAL DOCUMENTATION: JOB ID: [id number] [employer]- All Rights Reserved
[2017-02-26 20:50] VITALS: BP 140/72
--- NOTE | 2017-02-26 23:12 | EKG REPORT ---
SEVERITY:- ABNORMAL ECG - SINUS RHYTHM RIGHT BUNDLE BRANCH BLOCK LEFT VENTRICULAR HYPERTROPHY ANTERIOR Q WAVES, POSSIBLY DUE TO LVH : Confirmed by: William Alcantar 26-Feb-2017 23:11:26
== END 2017-02-26 20:48 | disposition home or self-care (01) ==
LOC: ER 13:59
DX: R55 Syncope and collapse (principal); R07.9 Chest pain, unspecified; I45.10 Unspecified right bundle-branch block; I25.10 Atherosclerotic heart disease of native coronary artery without angina pectoris; I10 Essential (primary) hypertension; E11.9 Type 2 diabetes mellitus without complications; I25.2 Old myocardial infarction; Z88.1 Allergy status to other antibiotic agents; Z88.8 Allergy status to other drugs, medicaments and biological substances; Z91.040 Latex allergy status; Z88.5 Allergy status to narcotic agent; Z88.0 Allergy status to penicillin; Z88.2 Allergy status to sulfonamides; Z91.048 Other nonmedicinal substance allergy status; Z95.5 Presence of coronary angioplasty implant and graft
CPT/HCPCS: 93005; 99285; 96360; 86900; 86901; 36415; 87086; 82553; 86850; 82550; 85025; 87088; 80053; 81001; 84484; 70450; 93010; J7030

== ENCOUNTER → 2017-05-08 | Outpatient (CLI) | payer MEDICARE, MEDICAID ==
[2017-05-08 16:32] LABS: ANION GAP 9 (5-19); BLOOD UREA NITROGEN 36 mg/dL (7-20); CALCIUM 9.4 mg/dL (8.4-10.2); CARBON DIOXIDE 23 mmol/L (22-30); CHLORIDE 109 mmol/L (98-107); GLUCOSE 86 mg/dL (75-110); POTASSIUM 5.6 mmol/L (3.6-5.0); SODIUM 140.8 mmol/L (137-145)
== END ==
LOC: OD 15:19
PROVIDERS: ATTEND Family Medicine
DX: E87.5 Hyperkalemia (principal)
CPT/HCPCS: 36415; 80048

== ENCOUNTER → 2017-05-15 | Outpatient (CLI) | payer MEDICARE, MEDICAID ==
[2017-05-15 11:29] LABS: ANION GAP 8 (5-19); BLOOD UREA NITROGEN 24 mg/dL (7-20); CALCIUM 9.2 mg/dL (8.4-10.2); CARBON DIOXIDE 22 mmol/L (22-30); CHLORIDE 110 mmol/L (98-107); GLUCOSE 89 mg/dL (75-110); SODIUM 140.3 mmol/L (137-145)
== END ==
LOC: OD 09:33
PROVIDERS: ATTEND Family Medicine
DX: E87.5 Hyperkalemia (principal)
CPT/HCPCS: 36415; 80048

== ENCOUNTER → 2017-09-01 | Outpatient (CLI) | payer MEDICARE, MEDICAID ==
--- NOTE | 2017-09-01 10:44 | WOMENS IMAGING REPORT ---
EXAM DESCRIPTION: 3D SCREENING MAMMO BILAT COMPLETED DATE/TIME: 09/01/2017 9:14 am REASON FOR STUDY: BILATERAL SCREENING MAMMO 3D/Z12.31 Z12.31 ENCNTR SCREEN MAMMOGRAM FOR MALIGNANT NEOPLASM OF [place] COMPARISON: [id number] TECHNIQUE: Standard craniocaudal and mediolateral oblique views of each breast recorded using digita l acquisition and breast tomosynthesis. LIMITATIONS: None. FINDINGS: No masses, calcifications or architectural distortion. No areas of suspicion. Read with the assistance of CAD. [facility] - R2 [employer] Version 1.3 .[facility] - R2 [employer]en[employer] Version 1.3 .[facility] - R2 Cenova Version 2.4 .[facility] - R2 Cenova Version 2.4 .[facility] - R2 [employer] Version 9.2 IMPRESSION: NORMAL MAMMOGRAM. BIRADS 1. BREAST DENSITY: a. The breasts are almost entirely fatty. BIRAD: 1 NEGATIVE RECOMMENDATION: ROUTINE SCREENING COMMENT: The patient has been notified of the results by letter per SA requirements. Additional no tification policies are in place for contacting patient with suspicious or incomplete findings. Quality ID #225: The [employer] recommends an annual screening mammogram for women aged 40 years or over. This facility utilizes a reminder system to ensure that all patients receive reminder letters, and/or direct phone calls for appointments. This includes reminders for routine scr eening mammograms, diagnostic mammograms, or other Breast Imaging Interventions when appropriate. Th is patient will be placed in the appropriate reminder system. The [employer] (ACR) has developed recommendations for screening MRI of the breast s in certain patient populations, to be used in conjunction with mammography. Breast MRI surveillanc e may be appropriate for women with more than 20% lifetime risk of developing breast cancer as deter mined by genetic testing, significant family history of the disease, or history of mantle radiation f or Hodgkins Disease. ACR Practice Guidelines 2008. DBT Technology DBT is a type of tomographic mammography. With conventional mammography, overlapping breast tissue ma y make lesions difficult to detect, even with good compression. DBT uses an x-ray tube that rotates a round the breast, taking images at different angles. These images are then combined to create thin sl ices of the breast that the radiologist can view as a 3D reconstruction. The [employer] unit can perform full-field digital mammograms (2D imaging); or DBT (3D imaging); or both, in a combination mode that quickly performs both the mammogram and the tomosynthesis scan while the breast is still compressed. PQRS 6045F: Fluoroscopic imaging is not utilized for breast tomosynthesis. TECHNICAL DOCUMENTATION: FINDING NUMBER: (1) ASSESSMENT: (1) JOB ID: [id number] [employer]- All Rights Reserved Reading location - IP/workstation name: [email or web address]
== END ==
LOC: WI 08:28
PROVIDERS: ATTEND Family Medicine
DX: Z12.31 Encounter for screening mammogram for malignant neoplasm of breast (principal)
CPT/HCPCS: 77063; 77067

== ENCOUNTER 2018-02-27 14:55 | Inpatient (IN) | payer MEDICARE, MEDICAID ==
[2018-02-27] MEDS ORDERED: ACETAMINOPHEN 325 MG TABLET PO ONE (16:04)
[2018-02-27] MEDS ORDERED: TRAMADOL HCL 50 MG TABLET PO ONE (17:19)
--- NOTE | 2018-02-27 17:22 | ER Document Report ---
ED Medical Screen (RME) - General Chief Complaint: Syncope Stated Complaint: FALL/KNEE PAIN Time Seen by Provider: 02/27/18 17:19 Mode of Arrival: Wheelchair Information source: Patient Notes: Is a 72-year-old female that ends to the emergency room with left knee pain after a fall at home. Patient states that her legs just gave out from under her. She fell hitting the left knee and also planes of right shoulder pain when moving. Incidentally, patient does states she has had fever, chills, cough and congestion for the past 10 days. She denies abdominal pain. She denies dysuria. She denies nausea or vomiting. She denies hitting her head. She is alert in triage. TRAVEL OUTSIDE OF THE [place] IN LAST 30 DAYS: No - Related Data Allergies/Adverse Reactions: betamethasone [Betamethasone] Allergy (Intermediate, Verified 02/27/18 15:09) burning skin ceftriaxone sodium [From Rocephin] Allergy (Intermediate, Verified 02/27/18 15:09) Urticaria ciprofloxacin [From Cipro] Allergy (Intermediate, Verified 02/27/18 15:09) Urticaria clindamycin [Clindamycin] Allergy (Intermediate, Verified 02/27/18 15:09) Urticaria clotrimazole [Clotrimazole] Allergy (Intermediate, Verified 02/27/18 15:09) burning skin diphenhydramine HCl [From Benadryl] Allergy (Intermediate, Verified 02/27/18 15:09) Urticaria doxycycline [Doxycycline] Allergy (Intermediate, Verified 02/27/18 15:09) Urticaria latex [Latex] Allergy (Intermediate, Verified 02/27/18 15:09) Urticaria metronidazole [From Flagyl] Allergy (Intermediate, Verified 02/27/18 15:09) Urticaria oxycodone [Oxycodone] Allergy (Intermediate, Verified 02/27/18 15:09) Penicillins Allergy (Intermediate, Verified 02/27/18 15:09) Urticaria Sulfa (Sulfonamide Antibiotics) Allergy (Intermediate, Verified 02/27/18 15:09) Urticaria acetaminophen [From Vicodin] Allergy (Verified 02/27/18 15:09) hydrocodone bitartrate [From Vicodin] Allergy (Verified 02/27/18 15:09) mupirocin [From Bactroban] Allergy (Verified 02/27/18 15:09) aspirin [Aspirin] Adverse Reaction (Mild, Verified 02/27/18 15:09) Nausea PAPER TAPE Allergy (Uncoded 02/27/18 15:09) Blisters Past Medical History - Social History Frequency of alcohol use: None Drug Abuse: None - Past Medical History Cardiac Medical History: Reports: Hx Coronary Artery Disease, Hx Heart Attack - x 4, Hx Hypercholesterolemia, Hx Hypertension Pulmonary Medical History: Reports: Hx Bronchitis, Hx Pneumonia, Hx Sleep Apnea Denies: Hx Asthma, Hx COPD, Hx Tuberculosis Neurological Medical History: Reports: Hx Cerebrovascular Accident - RIGHT SIDED WEAKNESS, NUMBNESS TINGLING R LEG. Denies: Hx Seizures Endocrine Medical History: Reports: Hx Diabetes Mellitus Type 1, Hx Diabetes Mellitus Type 2 - diet controlled Renal/ Medical History: Reports: Hx Renal Insufficiency. Denies: Hx Peritoneal Dialysis GI Medical History: Reports: Hx Gastroesophageal Reflux Disease, Hx Irritable Bowel, Hx Pancreatitis Musculoskeltal Medical History: Reports Hx Arthritis Psychiatric Medical History: Reports: Hx Depression Past Surgical History: Reports: Hx Appendectomy, Hx Cardiac Catheterization, Hx Coronary Stent, Hx Hysterectomy, Hx Orthopedic Surgery - Bilateral total knee replacements. Bilateral shoulder surgeries., Hx Tonsillectomy, Hx Umbilical Hernia. Denies: Hx Cardiac Surgery - Immunizations Hx Diphtheria, Pertussis, Tetanus Vaccination: Yes Physical Exam - Vital signs Vitals: Temp Pulse Resp BP Pulse Ox 102.6 F H 81 18 143/74 H 99 02/27/18 15:57 02/27/18 15:57 02/27/18 15:57 02/27/18 15:57 02/27/18 15:57 Course - Vital Signs Vital signs: Temp Pulse Resp BP Pulse Ox 102.6 F H 81 18 143/74 H 99 02/27/18 15:57 02/27/18 15:57 02/27/18 15:57 02/27/18 15:57 02/27/18 15:57 Doctor's Discharge - Discharge Referrals: RYDER HERNANDEZ MD [Primary Care Provider] - Follow up as needed
--- NOTE | 2018-02-27 18:08 | RADIOLOGY REPORT (SQ) ---
EXAM DESCRIPTION: KNEE LEFT 3 VIEWS COMPLETED DATE/TIME: 02/27/2018 5:51 pm REASON FOR STUDY: left knee pain s/p fall COMPARISON: None. NUMBER OF VIEWS: Four views. TECHNIQUE: AP, lateral, and both oblique radiographic images acquired of the left knee. LIMITATIONS: None. FINDINGS: MINERALIZATION: Normal. BONES: No acute fracture or dislocation. Status post total knee arthroplasty. No worrisome bone les ions. JOINT: No effusion. SOFT TISSUES: No soft tissue swelling. No radio-opaque foreign body. OTHER: No other significant finding. IMPRESSION: No fracture or dislocation of the left knee status post total knee arthroplasty. TECHNICAL DOCUMENTATION: JOB ID: [id number] [employer]- All Rights Reserved Reading location - IP/workstation name: [email or web address]
--- NOTE | 2018-02-27 18:19 | RADIOLOGY REPORT (SQ) ---
EXAM DESCRIPTION: SHOULDER RIGHT 2 OR MORE VIEWS COMPLETED DATE/TIME: 02/27/2018 5:51 pm REASON FOR STUDY: right shoulder pain s/p fall COMPARISON: None. NUMBER OF VIEWS: Three views. TECHNIQUE: Internal rotation, external rotation, and Y view images acquired of the right shoulder. LIMITATIONS: None. FINDINGS: MINERALIZATION: Normal. BONES: No acute fracture or dislocation. Chronic widening of the acromioclavicular joint which appea rs to be postoperative. Osteophytes in the glenohumeral joint. No worrisome bone lesions. JOINTS: No dislocation. VISUALIZED LUNGS AND RIBS: No pneumothorax. No rib fracture. SOFT TISSUES: No radiopaque foreign body. OTHER: No other significant finding. IMPRESSION: CHRONIC CHANGES. NO RADIOGRAPHIC EVIDENCE OF ACUTE INJURY. TECHNICAL DOCUMENTATION: JOB ID: [id number] [employer]- All Rights Reserved Reading location - IP/workstation name: [email or web address]
--- NOTE | 2018-02-27 18:20 | RADIOLOGY REPORT (SQ) ---
EXAM DESCRIPTION: CHEST 2 VIEWS COMPLETED DATE/TIME: 02/27/2018 5:51 pm REASON FOR STUDY: cough, fever COMPARISON: 02/04/2017 EXAM PARAMETERS: NUMBER OF VIEWS: two views TECHNIQUE: Digital Frontal and Lateral radiographic views of the chest acquired. RADIATION DOSE: NA LIMITATIONS: none FINDINGS: LUNGS AND PLEURA: No opacities, masses or pneumothorax. No pleural effusion. MEDIASTINUM AND HILAR STRUCTURES: No masses or contour abnormalities. HEART AND VASCULAR STRUCTURES: Heart normal size. No evidence for failure. BONES: Disc degenerative disease and ankylosis of the thoracic spine HARDWARE: None in the chest. OTHER: No other significant finding. IMPRESSION: No acute abnormality of the lungs. No focal airspace opacity. TECHNICAL DOCUMENTATION: JOB ID: [id number] [employer]- All Rights Reserved Reading location - IP/workstation name: [email or web address]
--- NOTE | 2018-02-27 18:33 | ER Document Report ---
ED General - General Chief Complaint: Syncope Stated Complaint: FALL/KNEE PAIN Time Seen by Provider: 02/27/18 17:19 Mode of Arrival: Wheelchair Information source: Patient, [facility] Records Notes: 72-year-old female with hypertension, hyperlipidemia, diabetes, previous CVA presents after a fall at home with complaint of right shoulder and left knee pain. Patient states that just prior to arrival she had a syncopal episode causing her to fall forward landing on her knees and outstretched arm. She denies any head injury, neck pain, preceding chest pain, shortness of breath or dizziness. Patient reports that this has been ongoing for her for several months. Patient has been seen by her glass forming crew member Dr. Talbert and her primary care physician Dr. Kaye for this. She states that she is scheduled for cardiac testing on Friday but is unsure exactly what. Patient denies any recent illnes s. TRAVEL OUTSIDE OF THE [place] IN LAST 30 DAYS: No - HPI Onset: Just prior to arrival Onset/Duration: Sudden Quality of pain: Achy, Throbbing Severity: Mild Associated symptoms: denies: Chest pain, Nonproductive cough, Productive cough, Headache, Hurts to breath, Leg swelling, Nausea, Shortness of breath, Weakness Exacerbated by: Movement, Walking Relieved by: Denies Similar symptoms previously: Yes Recently seen / treated by doctor: Yes - Related Data Allergies/Adverse Reactions: betamethasone [Betamethasone] Allergy (Intermediate, Verified 02/27/18 15:09) burning skin ceftriaxone sodium [From Rocephin] Allergy (Intermediate, Verified 02/27/18 15:09) Urticaria ciprofloxacin [From Cipro] Allergy (Intermediate, Verified 02/27/18 15:09) Urticaria clindamycin [Clindamycin] Allergy (Intermediate, Verified 02/27/18 15:09) Urticaria clotrimazole [Clotrimazole] Allergy (Intermediate, Verified 02/27/18 15:09) burning skin diphenhydramine HCl [From Benadryl] Allergy (Intermediate, Verified 02/27/18 15:09) Urticaria doxycycline [Doxycycline] Allergy (Intermediate, Verified 02/27/18 15:09) Urticaria latex [Latex] Allergy (Intermediate, Verified 02/27/18 15:09) Urticaria metronidazole [From Flagyl] Allergy (Intermediate, Verified 02/27/18 15:09) Urticaria oxycodone [Oxycodone] Allergy (Intermediate, Verified 02/27/18 15:09) Penicillins Allergy (Intermediate, Verified 02/27/18 15:09) Urticaria Sulfa (Sulfonamide Antibiotics) Allergy (Intermediate, Verified 02/27/18 15:09) Urticaria acetaminophen [From Vicodin] Allergy (Verified 02/27/18 15:09) hydrocodone bitartrate [From Vicodin] Allergy (Verified 02/27/18 15:09) mupirocin [From Bactroban] Allergy (Verified 02/27/18 15:09) aspirin [Aspirin] Adverse Reaction (Mild, Verified 02/27/18 15:09) Nausea PAPER TAPE Allergy (Uncoded 02/27/18 15:09) Blisters Past Medical History - General Information source: Patient - Social History Smoking Status: Never Smoker Frequency of alcohol use: None Drug Abuse: None Lives with: Alone Family History: Reviewed & Not Pertinent Patient has suicidal ideation: No Patient has homicidal ideation: No - Past Medical History Cardiac Medical History: Reports: Hx Coronary Artery Disease, Hx Heart Attack - x 4, Hx Hypercholesterolemia, Hx Hypertension Pulmonary Medical History: Reports: Hx Bronchitis, Hx Pneumonia, Hx Sleep Apnea Denies: Hx Asthma, Hx COPD, Hx Tuberculosis Neurological Medical History: Reports: Hx Cerebrovascular Accident - RIGHT SIDED WEAKNESS, NUMBNESS TINGLING R LEG. Denies: Hx Seizures Endocrine Medical History: Reports: Hx Diabetes Mellitus Type 1, Hx Diabetes Mellitus Type 2 - diet controlled Renal/ Medical History: Reports: Hx Renal Insufficiency. Denies: Hx Peritoneal Dialysis GI Medical History: Reports: Hx Gastroesophageal Reflux Disease, Hx Irritable Bowel, Hx Pancreatitis Musculoskeletal Medical History: Reports Hx Arthritis Psychiatric Medical History: Reports: Hx Depression Past Surgical History: Reports: Hx Appendectomy, Hx Cardiac Catheterization, Hx Coronary Stent, Hx Hysterectomy, Hx Orthopedic Surgery - Bilateral total knee r eplacements. Bilateral shoulder surgeries., Hx Tonsillectomy, Hx Umbilical Hernia. Denies: Hx Cardiac Surgery - Immunizations Hx Diphtheria, Pertussis, Tetanus Vaccination: Yes Hx Pneumococcal Vaccination: 04/24/10 Review of Systems - Review of Systems Notes: REVIEW OF SYSTEMS: CONSTITUTIONAL : Denies fever, chills, or sweats. Denies recent illness. Denies weight loss, recent hospitalizations. EENT: Denies visual changes, eye pain. Denies sore throat, oral lesions, difficulty swallowing. CARDIOVASCULAR: Denies chest pain. Denies palpitations. Denies lower extremity edema. RESPIRATORY: Denies cough. Denies shortness of breath, wheezing. GASTROINTESTINAL: Denies abdominal pain or distention. Denies nausea, vomiting, or diarrhea. Denies blood in vomitus, stools, or per rectum. Denies black, tarry stools. Denies constipation. GENITOURINARY: Denies difficulty urinating, painful urination, frequency, blood in urine, or vaginal discharge. MUSCULOSKELETAL: Denies back or neck pain or stiffness. SKIN: Denies rash, lesions or sores. HEMATOLOGIC : Denies easy bruising or bleeding. LYMPHATIC: Denies swollen glands. NEUROLOGICAL: Denies confusion or altered mental status. Denies weakness or paralysis. Denies problems difficulty with ambulation, slurred speech. Denies sensory loss, numbness, or tingling. Denies seizures. PSYCHIATRIC: Denies anxiety or stress. Denies depression, suicidal ideation, or homicidal ideation. Denies visual or auditory hallucinations. Physical Exam - Vital signs Vitals: Temp Pulse Resp BP Pulse Ox 102.6 F H 81 18 143/74 H 99 02/27/18 15:57 02/27/18 15:57 02/27/18 15:57 02/27/18 15:57 02/27/18 15:57 - Notes Notes: PHYSICAL EXAMINATION: GENERAL: Ill-appearing, mild distress HEAD: Atraumatic, normocephalic. EYES: Pupils equal round and reactive to light, extraocular movements intact, conjunctiva are normal. ENT: Nares patent, oropharynx clear without exudates. Moist mucous membranes. NECK: Normal range of motion, supple without lymphadenopathy LUNGS: Breath sounds clear to auscultation bilaterally and equal. No wheezes rales or rhonchi. HEART: Regular rate and rhythm without murmurs ABDOMEN: Soft, nontender, nondistended abdomen. No guarding, no rebound. No masses appreciated. Female : deferred Musculoskeletal: Normal range of motion, no pitting or edema. No cyanosis. Left knee tender to palpation in the medial aspect. Extensor mechanism intact. No obvious deformity, swelling. Right shoulder with full range of motion, no obvious deformity. No neuro deficits. NEUROLOGICAL: Cranial nerves grossly intact. Normal speech, normal gait. Normal sensory, motor exams PSYCH: Normal mood, normal affect. SKIN: Warm, Dry, normal turgor, no rashes or lesions noted. Course - Re-evaluation Re-evalutation: 02/27/18 23:35 Laboratory 02/27/18 02/27/18 02/27/18 18:47 18:47 18:47 WBC 4.7 RBC 4.37 Hgb 11.4 L Hct 34.4 L MCV 79 L MCH 26.1 L MCHC 33.1 RDW 15.8 H Plt Count 165 Seg Neutrophils % 78.4 H Lymphocytes % 11.0 L Monocytes % 9.9 Eosinophils % 0.4 Basophils % 0.3 Absolute Neutrophils 3.7 Absolute Lymphocytes 0.5 Absolute Monocytes 0.5 Absolute Eosinophils 0.0 Absolute Basophils 0.0 Sodium 136.1 L Potassium 4.9 Chloride 105 Carbon Dioxide 25 Anion Gap 6 BUN 23 H Creatinine 1.57 H Est GFR ( Amer) 39 L Est GFR (Non-Af Amer) 33 L Glucose 100 Lactic Acid Calcium 9.2 Total Bilirubin 0.8 Direct Bilirubin 0.3 Neonat Total Bilirubin Not Reportable Neonat Direct Bilirubin Not Reportable Neonat Indirect Bili Not Reportable AST 47 H ALT 19 Alkaline Phosphatase 103 Creatine Kinase 134 CK-MB (CK-2) 0.55 Troponin I 0.014 Total Protein 7.8 Albumin 4.1 Urine Color Urine Appearance Urine pH Ur Specific Leonard Urine Protein Urine Glucose (UA) Urine Ketones Urine Blood Urine Nitrite Urine Bilirubin Urine Urobilinogen Ur Leukocyte Esterase Urine WBC (Auto) Urine RBC (Auto) Urine Bacteria (Auto) Squamous Epi Cells Auto Urine Mucus (Auto) Urine Ascorbic Acid Influenza A (Rapid) Influenza B (Rapid) 02/27/18 02/27/18 02/27/18 19:06 19:55 21:30 WBC RBC Hgb Hct MCV MCH MCHC RDW Plt Count Seg Neutrophils % Lymphocytes % Monocytes % Eosinophils % Basophils % Absolute Neutrophils Absolute Lymphocytes Absolute Monocytes Absolute Eosinophils Absolute Basophils Sodium Potassium Chloride Carbon Dioxide Anion Gap BUN Creatinine Est GFR ( Amer) Est GFR (Non-Af Amer) Glucose Lactic Acid 1.1 Calcium Total Bilirubin Direct Bilirubin Neonat Total Bilirubin Neonat Direct Bilirubin Neonat Indirect Bili AST ALT Alkaline Phosphatase Creatine Kinase CK-MB (CK-2) Troponin I Total Protein Albumin Urine Color STRAW Urine Appearance CLEAR Urine pH 6.0 Ur Specific Leonard 1.004 Urine Protein NEGATIVE Urine Glucose (UA) NEGATIVE Urine Ketones NEGATIVE Urine Blood SMALL H Urine Nitrite NEGATIVE Urine Bilirubin NEGATIVE Urine Urobilinogen NEGATIVE Ur Leukocyte Esterase MODERATE H Urine WBC (Auto) 20 Urine RBC (Auto) 0 Urine Bacteria (Auto) TRACE Squamous Epi Cells Auto <1 Urine Mucus (Auto) RARE Urine Ascorbic Acid NEGATIVE Influenza A (Rapid) NEGATIVE Influenza B (Rapid) NEGATIVE Chest X-Ray 02/27/18 17:19 IMPRESSION: No acute abnormality of the lungs. No focal airspace opacity. Knee X-Ray 02/27/18 17:20 IMPRESSION: No fracture or dislocation of the left knee status post total knee arthroplasty. Shoulder X-Ray 02/27/18 17:20 IMPRESSION: CHRONIC CHANGES. NO RADIOGRAPHIC EVIDENCE OF ACUTE INJURY. Head CT 02/27/18 19:27 IMPRESSION: No acute intracranial findings. Temp Pulse Resp BP Pulse Ox 98.7 F 71 18 155/74 H 99 02/27/18 22:36 02/27/18 22:36 02/27/18 22:36 02/27/18 22:36 02/27/18 22:36 72-year-old female presents after a syncopal episode with complaint of left knee pain and right shoulder pain. Patient states that she was walking into the kitchen when she suddenly "fell out" and awoke on the floor. Patient denies head injury, neck pain. Upon arrival patient is febrile with a fever of almost 103. Patient appears ill but not toxic or dehydrated. CBC is without leukocytosis and does show a mild stable anemia. CMP does show elevation of her creatinine of 1.5 which is the patient's baseline. Lactate within normal limits. Influenza negative. Urinalysis consistent with urinary tract infectio n. No acute findings on imaging of the shoulder, knee, chest and head. During her ED course patient began complaining of a headache. She did receive Tylenol, Reglan. Patient has had prior similar syncopal episodes and is undergoing cardiology care with Dr. Talbert. Patient is literally allergic to almost every antibiotic that we can use for urinary tract infection. I did speak to Dr. Kaye the patient's primary care physician who agrees to observe the patient on telemetry. - Vital Signs Vital signs: Temp Pulse Resp BP Pulse Ox 98.7 F 71 18 155/74 H 99 02/27/18 22:36 02/27/18 22:36 02/27/18 22:36 02/27/18 22:36 02/27/18 22:36 - Laboratory Result Diagrams: 02/27/18 18:47 02/27/18 18:47 Laboratory results interpreted by me: 02/27/18 02/27/18 02/27/18 18:47 18:47 19:55 Hgb 11.4 L Hct 34.4 L MCV 79 L MCH 26.1 L RDW 15.8 H Seg Neutrophils % 78.4 H Lymphocytes % 11.0 L Sodium 136.1 L BUN 23 H Creatinine 1.57 H Est GFR ( Amer) 39 L Est GFR (Non-Af Amer) 33 L AST 47 H Urine Blood SMALL H Ur Leukocyte Esterase MODERATE H - Diagnostic Test Radiology reviewed: Image reviewed, Reports reviewed - EKG Interpretation by Me EKG shows normal: Sinus rhythm Rate: Normal Rhythm: NSR [place]/QRS: RBBB Voltage: Consistant with LVH When compared to previous EKG there are: No significant change Discharge - Discharge Clinical Impression: Fever Qualifiers: Fever type: unspecified Qualified Code(s): R50.9 - Fever, unspecified Syncope Qualifiers: Syncope type: unspecified Qualified Code(s): R55 - Syncope and collapse UTI (urinary tract infection) Qualifiers: Urinary tract infection type: site unspecified Hematuria presence: without hematuria Qualified Code(s): N39.0 - Urinary tract infection, site not specified Diabetes mellitus Qualifiers: Diabetes mellitus type: type 2 Diabetes mellitus tube builder airplane insulin use: without skilled nursing use Diabetes mellitus complication status: with unspecified complications Qualified Code(s): E11.8 - Type 2 diabetes mellitus with unspecified complications Left knee pain Qualifiers: Chronicity: acute Qualified Code(s): M25.562 - Pain in left knee Right shoulder pain Qualifiers: Chronicity: acute Qualified Code(s): M25.511 - Pain in right shoulder Condition: Good Disposition: ADMITTED OBSERVATION Admitting Provider: Kaye Unit Admitted: Telemetry
[2018-02-27 18:59] LABS: ABSOLUTE LYMPHOCYTES (AUTO) 0.5 10^3/uL (0.5-4.7); ABSOLUTE MONOCYTES (AUTO) 0.5 10^3/uL (0.1-1.4); ABSOLUTE NEUT (AUTO) 3.7 10^3/uL (1.7-8.2); BASOPHILS % (AUTO) 0.3 % (0-2); EOSINOPHILS % (AUTO) 0.4 % (0-6); HEMATOCRIT 34.4 % (36.0-47.0); HEMOGLOBIN 11.4 g/dL (12.0-15.5); MEAN CORPUSCULAR HEMOGLOBIN 26.1 pg (27.0-33.4); MEAN CORPUSCULAR HGB CONC 33.1 g/dL (32.0-36.0); MEAN CORPUSCULAR VOLUME 79 fl (80-97); MONOCYTES % (AUTO) 9.9 % (3-13); PLATELET COUNT 165 10^3/uL (150-450); RED BLOOD COUNT 4.37 10^6/uL (3.72-5.28); RED CELL DISTRIBUTION WIDTH 15.8 % (11.5-14.0); SEGMENTED NEUTROPHILS % (AUTO) 78.4 % (42-78); TOTAL CELLS COUNTED % (AUTO) 100 %; WHITE BLOOD COUNT 4.7 10^3/uL (4.0-10.5)
[2018-02-27 19:14] LABS: ALANINE AMINOTRANSFERASE 19 U/L (9-52); ALBUMIN 4.1 g/dL (3.5-5.0); ALKALINE PHOSPHATASE 103 U/L (38-126); ANION GAP 6 (5-19); ASPARTATE AMINO TRANSFERASE 47 U/L (14-36); BILIRUBIN,DIRECT 0.3 mg/dL (0.0-0.4); BILIRUBIN,TOTAL 0.8 mg/dL (0.2-1.3); BLOOD UREA NITROGEN 23 mg/dL (7-20); CALCIUM 9.2 mg/dL (8.4-10.2); CARBON DIOXIDE 25 mmol/L (22-30); CHLORIDE 105 mmol/L (98-107); CREATINE KINASE 134 U/L (30-135); GLUCOSE 100 mg/dL (75-110); POTASSIUM 4.9 mmol/L (3.6-5.0); SODIUM 136.1 mmol/L (137-145); TOTAL PROTEIN 7.8 g/dL (6.3-8.2)
[2018-02-27] MEDS ORDERED: NORMAL SALINE 500 ML IV ONE (19:25)
[2018-02-27 19:26] LABS: CREATINE KINASE MB 0.55 ng/mL (<4.55); TROPONIN I 0.014 ng/mL
[2018-02-27 20:00] LABS: A TYPE INFLUENZA AG NEGATIVE (NEGATIVE); B INFLUENZA AG NEGATIVE (NEGATIVE)
[2018-02-27] MEDS ORDERED: METOCLOPRAMIDE HCL 10 MG TABLET PO ONE (20:09)
--- NOTE | 2018-02-27 20:10 | RADIOLOGY REPORT (SQ) ---
CT HEAD WITHOUT IV CONTRAST HISTORY: Headache. Fall. COMPARISON: 02/26/2017 TECHNIQUE: CT scan of the brain without IV contrast. This exam was performed according to our departmental dose-optimization program, which includes automated exposure control, adjustment of the mA and/or kV according to patient size and/or use of iterative reconstruction technique. FINDINGS: The ventricles, cisterns, and sulci are unremarkable. No focal white matter lesions are seen. No evidence of acute infarction, intracranial hemorrhage, extra-axial fluid collection, or midline shift. Mild mucosal thickening of the right maxillary sinus. No air-fluid levels are seen. The mastoid air cells are clear. No depressed skull fracture. IMPRESSION: No acute intracranial findings.
[2018-02-27 20:40] LABS: APPEARANCE,URINE CLEAR; BILIRUBIN,URINE NEGATIVE (NEGATIVE); COLOR,URINE STRAW; GLUCOSE, URINE NEGATIVE (NEGATIVE); KETONES,URINE NEGATIVE (NEGATIVE); LEUKOCYTE ESTERASE,URINE MODERATE (NEGATIVE); NITRITE,URINE NEGATIVE (NEGATIVE); PROTEIN,URINE NEGATIVE (NEGATIVE); URINE SPECIFIC GRAVITY 1.004; UROBILINOGEN,URINE NEGATIVE mg/dL (<2.0)
--- NOTE | 2018-02-27 20:50 | EKG REPORT ---
SEVERITY:- ABNORMAL ECG - SINUS RHYTHM RIGHT BUNDLE BRANCH BLOCK LEFT VENTRICULAR HYPERTROPHY ANTERIOR Q WAVES, POSSIBLY DUE TO LVH : Confirmed by: William Alcantar 27-Feb-2018 20:49:49
[2018-02-27] MEDS ORDERED: NITROFURANTOIN MONOHYD/M-CRYST 100 MG CAPSULE PO ONE (21:05)
[2018-02-27] MEDS ORDERED: MAG HYDROX/AL HYDROX/SIMETH SUSP 30 ML UDCUP PO PRN (21:24)
[2018-02-27] MEDS ORDERED: ONDANSETRON HCL INJ/PF 4 MG/2 ML SDV IV PRN (21:24)
[2018-02-27] MEDS ORDERED: IPRATROPIUM/ALBUTEROL 0.5-2.5 MG/3 ML AMPUL NEB PRN (21:24)
[2018-02-27] MEDS ORDERED: GENTAMICIN SULFATE INJ 80 MG/2 ML VIAL IV ONE (21:30)
[2018-02-28 01:55] LABS: CREATINE KINASE MB 0.56 ng/mL (<4.55)
[2018-02-28 02:01] LABS: TROPONIN I < 0.012 ng/mL
[2018-02-28] MEDS: ACETAMINOPHEN 325 MG TABLET PO PRN ×4 (03:17→18:33)
[2018-02-28] MEDS: NORMAL SALINE 1000 ML 1,000 ML IV PRN ×2 (03:17→19:23)
[2018-02-28 07:59] LABS: ABSOLUTE LYMPHOCYTES (AUTO) 0.3 10^3/uL (0.5-4.7); ABSOLUTE MONOCYTES (AUTO) 0.3 10^3/uL (0.1-1.4); BASOPHILS % (AUTO) 0.2 % (0-2); EOSINOPHILS % (AUTO) 0.3 % (0-6); HEMATOCRIT 34.5 % (36.0-47.0); HEMOGLOBIN 11.2 g/dL (12.0-15.5); LYMPHOCYTES % (AUTO) 12.7 % (13-45); MEAN CORPUSCULAR HGB CONC 32.4 g/dL (32.0-36.0); MEAN CORPUSCULAR VOLUME 80 fl (80-97); MONOCYTES % (AUTO) 11.8 % (3-13); PLATELET COUNT 155 10^3/uL (150-450); RED BLOOD COUNT 4.29 10^6/uL (3.72-5.28); RED CELL DISTRIBUTION WIDTH 15.5 % (11.5-14.0); TOTAL CELLS COUNTED % (AUTO) 100 %
[2018-02-28 08:06] LABS: WHITE BLOOD COUNT 2.7 10^3/uL (4.0-10.5)
[2018-02-28 08:15] LABS: ALANINE AMINOTRANSFERASE 25 U/L (9-52); ALBUMIN 3.7 g/dL (3.5-5.0); ALKALINE PHOSPHATASE 92 U/L (38-126); ANION GAP 6 (5-19); ASPARTATE AMINO TRANSFERASE 27 U/L (14-36); BILIRUBIN,DIRECT 0.2 mg/dL (0.0-0.4); BILIRUBIN,TOTAL 0.6 mg/dL (0.2-1.3); BLOOD UREA NITROGEN 18 mg/dL (7-20); CARBON DIOXIDE 25 mmol/L (22-30); CHLORIDE 107 mmol/L (98-107); GLUCOSE 94 mg/dL (75-110); POTASSIUM 4.7 mmol/L (3.6-5.0); SODIUM 137.6 mmol/L (137-145)
[2018-02-28 08:26] LABS: CREATINE KINASE MB 0.27 ng/mL (<4.55)
[2018-02-28 08:27] LABS: TROPONIN I < 0.012 ng/mL
[2018-02-28] MEDS: FAMOTIDINE 20 MG TABLET PO SCH ×2 (09:28→18:33)
[2018-02-28] MEDS: ENOXAPARIN SODIUM INJ 40 MG/0.4 ML DISP.SYRIN SUBCUT SCH (09:29)
[2018-02-28] MEDS ORDERED: DOXYCYCLINE HYCLATE 100 MG TABLET PO SCH (10:00)
[2018-02-28] MEDS ORDERED: (PENDING PHARMACY ID) (Benazepril Hcl [Lotensin] 40 MG) PO SCH (10:00)
--- NOTE | 2018-02-28 10:40 | RADIOLOGY REPORT (SQ) ---
EXAM DESCRIPTION: CT CHEST WITHOUT COMPLETED DATE/TIME: 02/28/2018 10:24 am REASON FOR STUDY: cough/fever/sob COMPARISON: Chest x-ray dated 02/27/2018. Chest CT dated 03/08/2016. TECHNIQUE: CT scan performed of the chest without intravenous contrast. Images reviewed with lung, soft tissue and bone windows. Reconstructed coronal and sagittal MPR images reviewed. All images st ored on PACS. All CT scanners at this facility use dose modulation, iterative reconstruction, and/or weight based d osing when appropriate to reduce radiation dose to as low as reasonably achievable (ALARA). [facility]: Dose Right [facility]: CareDose [facility]: Dose Right [facility]: Teradose 4D [facility]: Smart mojio RADIATION DOSE: CT Rad equipment meets quality standard of care and radiation dose reduction techniq ues were employed. CTDIvol: 17.6 - 18.2 mGy. DLP: 1281 mGy-cm. mGy. LIMITATIONS: No technical limitations. FINDINGS: LUNGS AND PLEURA: No masses, infiltrates, or pneumothorax. No pleural effusions or pleura l calcifications. HILAR AND MEDIASTINAL STRUCTURES: No identified masses or abnormal nodes. No obvious aneurysm. HEART AND VASCULAR STRUCTURES: No aneurysm. No pericardial effusion. UPPER ABDOMEN: No significant findings. Possible small gallstones. Limited exam. THYROID AND OTHER SOFT TISSUES: No masses. No adenopathy. BONES: No significant finding. HARDWARE: None in the chest. OTHER: No other significant findings. IMPRESSION: NO SIGNIFICANT FINDING ON NON-CONTRASTED CHEST CT. TECHNICAL DOCUMENTATION: JOB ID: [id number] Quality ID # [id number]: Final reports with documentation of one or more dose reduction techniques (e.g., Au tomated exposure control, adjustment of the mA and/or kV according to patient size, use of iterative reconstruction technique) 2010 [employer]- All Rights Reserved Reading location - IP/workstation name: [email or web address]
--- NOTE | 2018-02-28 11:05 | PDOC H&P ---
History of Present Illness Admission Date/PCP: 02/27/18 21:38 RYDER HERNANDEZ MD Patient complains of: Syncopal episode and fall History of Present Illness: ELISABETH SUNG is a 72 year old female This is a 72-year-old female with a history of the hypertension hyperlipidemia diabetes history of the coronary disease currently see the cardiology at [place] the syncopal episodes Patient noticed that she is almost pass out and patient's hurting her knee in emergency department patient's noticed that patient's temperature is 102 and patient knee x-ray is all stable Patient when I saw her complaining of a Cough congestions since last 2 weeks and getting more worse patient is noticed a fever and chills yesterday Patient is denied any abdominal pain no nausea no vomiting Patient is denied any chest pain Patient's denied any other symptoms Unfortunately patient had a most of antibiotic allergy reviewed all the pharmacy outpatient inpatient patients pretty much all antibiotic allergy except the azithromycin Patient is giving the possible Macrobid 1 dose for urinary tract infections questionable Patient even cannot take the betamethasone cannot take the Benadryl Patients at this point will start on IV azithromycin will wait for the blood culture urine culture and order the sputum culture Past Medical History Cardiac Medical History: Reports: Coronary Artery Disease, Myocardial Infarction - x 4, Hyperlipidema, Hypertension Pulmonary Medical History: Reports: Bronchitis, Pneumonia, Sleep Apnea Denies: Asthma, Chronic Obstructive Pulmonary Disease (COPD), Tuberculosis Neurological Medical History: Denies: Seizures Endocrine Medical History: Reports: Diabetes Mellitus Type 2 - diet controlled GI Medical History: Reports: Gastroesophageal Reflux Disease Musculoskeltal Medical History: Reports: Arthritis Psychiatric Medical History: Reports: Depression Hematology: Reports: Anemia Past Surgical History Past Surgical History: Reports: Appendectomy, Cardiac Catheterization, Coronary Stent, Hysterectomy, Orthopedic Surgery - Bilateral total knee replacements. Bilateral shoulder surgeries., Tonsillectomy Social History Lives with: Alone Smoking Status: Never Smoker Frequency of Alcohol Use: None Hx Recreational Drug Use: No Drugs: None Hx Prescription Drug Abuse: No Family History Family History: Reviewed & Not Pertinent Parental Family History Reviewed: Yes Children Family History Reviewed: Yes Sibling(s) Family History Reviewed.: Yes Medication/Allergy Home Medications: Atorvastatin Calcium [Lipitor 20 mg Tablet] 20 mg PO QHS 02/28/18 Benazepril HCl [Lotensin] 40 mg PO DAILY 02/28/18 Clopidogrel Bisulfate [Plavix 75 mg Tablet] 75 mg PO DAILY 02/28/18 Dicyclomine HCl [Bentyl 20 mg Tablet] 20 mg PO TID 02/28/18 Levocetirizine Dihydrochloride [Xyzal] 5 mg PO QPM 02/28/18 Metoprolol Tartrate [Lopressor 25 mg Tablet] 25 mg PO Q12 02/28/18 Polyethylene Glycol 3350 [Miralax Powder 17 gm/Packet] 1 packet PO DAILY 02/28/18 Ranolazine [Ranexa 500 mg Tab.sr] 500 mg PO Q12 02/28/18 Allergies/Adverse Reactions: betamethasone [Betamethasone] Allergy (Intermediate, Verified 02/27/18 15:09) burning skin ceftriaxone sodium [From Rocephin] Allergy (Intermediate, Verified 02/27/18 15:09) Urticaria ciprofloxacin [From Cipro] Allergy (Intermediate, Verified 02/27/18 15:09) Urticaria clindamycin [Clindamycin] Allergy (Intermediate, Verified 02/27/18 15:09) Urticaria clotrimazole [Clotrimazole] Allergy (Intermediate, Verified 02/27/18 15:09) burning skin diphenhydramine HCl [From Benadryl] Allergy (Intermediate, Verified 02/27/18 15:09) Urticaria doxycycline [Doxycycline] Allergy (Intermediate, Verified 02/27/18 15:09) Urticaria latex [Latex] Allergy (Intermediate, Verified 02/27/18 15:09) Urticaria metronidazole [From Flagyl] Allergy (Intermediate, Verified 02/27/18 15:09) Urticaria oxycodone [Oxycodone] Allergy (Intermediate, Verified 02/27/18 15:09) Penicillins Allergy (Intermediate, Verified 02/27/18 15:09) Urticaria Sulfa (Sulfonamide Antibiotics) Allergy (Intermediate, Verified 02/27/18 15:09) Urticaria acetaminophen [From Vicodin] Allergy (Verified 02/27/18 15:09) hydrocodone bitartrate [From Vicodin] Allergy (Verified 02/27/18 15:09) mupirocin [From Bactroban] Allergy (Verified 02/27/18 15:09) aspirin [Aspirin] Adverse Reaction (Mild, Verified 02/27/18 15:09) Nausea PAPER TAPE Allergy (Uncoded 02/27/18 15:09) Blisters Review of Systems Constitutional: PRESENT: chills, fever(s). ABSENT: headache(s), weight gain, weight loss Eyes: ABSENT: visual disturbances Ears: ABSENT: hearing changes Cardiovascular: ABSENT: chest pain, dyspnea on exertion, edema, orthropnea, palpitations Respiratory: PRESENT: cough. ABSENT: hemoptysis Gastrointestinal: ABSENT: abdominal pain, constipation, diarrhea, hematemesis, hematochezia, nausea, vomiting Genitourinary: ABSENT: dysuria, hematuria Musculoskeletal: ABSENT: joint swelling Integumentary: ABSENT: rash, wounds Neurological: ABSENT: abnormal gait, abnormal speech, confusion, dizziness, focal weakness, syncope Psychiatric: ABSENT: anxiety, depression, homidical ideation, suicidal ideation Endocrine: ABSENT: cold intolerance, heat intolerance, menstrual abnormalities, polydipsia, polyuria Hematologic/Lymphatic: ABSENT: easy bleeding, easy bruising, lymphadenopathy Physical Exam Vital Signs: Temp Pulse Resp BP Pulse Ox 99.0 F 72 18 149/66 H 99 02/28/18 08:00 02/28/18 08:00 02/28/18 08:00 02/28/18 08:00 02/28/18 08:00 Intake & Output 02/27/18 02/28/18 03/01/18 06:59 06:59 06:59 Intake Total 500 Output Total 375 Balance 125 Weight 104.5 kg General appearance: PRESENT: no acute distress, well-developed, well-nourished Head exam: PRESENT: atraumatic, normocephalic Eye exam: PRESENT: conjunctiva pink, EOMI, PERRLA. ABSENT: scleral icterus Ear exam: PRESENT: normal external ear exam Mouth exam: PRESENT: moist, tongue midline Neck exam: PRESENT: full ROM. ABSENT: carotid bruit, JVD, lymphadenopathy, thyromegaly Respiratory exam: PRESENT: clear to auscultation radha Cardiovascular exam: PRESENT: RRR. ABSENT: diastolic murmur, rubs, systolic murmur Pulses: PRESENT: normal dorsalis pedis pul, +2 pedal pulses bilateral Vascular exam: PRESENT: normal capillary refill GI/Abdominal exam: PRESENT: normal bowel sounds, soft. ABSENT: distended, guarding, mass, organolmegaly, rebound, tenderness Rectal exam: PRESENT: deferred Extremities exam: PRESENT: pedal edema Musculoskeletal exam: PRESENT: ambulatory Neurological exam: PRESENT: alert, awake, oriented to person, oriented to place, oriented to time, oriented to situation, reflexes normal, CN II-XII grossly intact, normal gait. ABSENT: motor sensory deficit Psychiatric exam: PRESENT: appropriate affect, normal mood. ABSENT: homicidal ideation, suicidal ideation Skin exam: PRESENT: dry, intact, warm. ABSENT: cyanosis, rash Results Laboratory Results: 02/28/18 07:17 02/28/18 07:17 02/27/18 02/27/18 02/27/18 18:47 18:47 19:55 WBC 4.7 RBC 4.37 Hgb 11.4 L Hct 34.4 L MCV 79 L MCH 26.1 L MCHC 33.1 RDW 15.8 H Plt Count 165 Seg Neutrophils % 78.4 H Lymphocytes % 11.0 L Monocytes % 9.9 Eosinophils % 0.4 Basophils % 0.3 Absolute Neutrophils 3.7 Absolute Lymphocytes 0.5 Absolute Monocytes 0.5 Absolute Eosinophils 0.0 Absolute Basophils 0.0 Sodium 136.1 L Potassium 4.9 Chloride 105 Carbon Dioxide 25 Anion Gap 6 BUN 23 H Creatinine 1.57 H Est GFR ( Amer) 39 L Est GFR (Non-Af Amer) 33 L Glucose 100 Lactic Acid Calcium 9.2 Magnesium Total Bilirubin 0.8 AST 47 H ALT 19 Alkaline Phosphatase 103 Total Protein 7.8 Albumin 4.1 Urine Color STRAW Urine Appearance CLEAR Urine pH 6.0 Ur Specific [place] 1.004 Urine Protein NEGATIVE Urine Glucose (UA) NEGATIVE Urine Ketones NEGATIVE Urine Blood SMALL H Urine Nitrite NEGATIVE Ur Leukocyte Esterase MODERATE H Urine WBC (Auto) 20 Urine RBC (Auto) 0 02/27/18 02/28/18 02/28/18 21:30 07:17 07:17 WBC 2.7 L D RBC 4.29 Hgb 11.2 L Hct 34.5 L MCV 80 MCH 26.0 L MCHC 32.4 RDW 15.5 H Plt Count 155 Seg Neutrophils % 75.0 Lymphocytes % 12.7 L Monocytes % 11.8 Eosinophils % 0.3 Basophils % 0.2 Absolute Neutrophils 2.0 Absolute Lymphocytes 0.3 L Absolute Monocytes 0.3 Absolute Eosinophils 0.0 Absolute Basophils 0.0 Sodium 137.6 Potassium 4.7 Chloride 107 Carbon Dioxide 25 Anion Gap 6 BUN 18 Creatinine 1.57 H Est GFR ( Amer) 39 L Est GFR (Non-Af Amer) 33 L Glucose 94 Lactic Acid 1.1 Calcium 9.0 Magnesium 1.7 Total Bilirubin 0.6 AST 27 ALT 25 Alkaline Phosphatase 92 Total Protein 7.0 Albumin 3.7 Urine Color Urine Appearance Urine pH Ur Specific [place] Urine Protein Urine Glucose (UA) Urine Ketones Urine Blood Urine Nitrite Ur Leukocyte Esterase Urine WBC (Auto) Urine RBC (Auto) 02/27/18 02/27/18 02/28/18 18:47 18:47 01:16 Creatine Kinase 134 128 CK-MB (CK-2) 0.55 Troponin I 0.014 02/28/18 02/28/18 02/28/18 01:16 07:17 07:17 Creatine Kinase 113 CK-MB (CK-2) 0.56 0.27 Troponin I < 0.012 < 0.012 Impressions: Chest X-Ray 02/27/18 17:19 IMPRESSION: No acute abnormality of the lungs. No focal airspace opacity. Knee X-Ray 02/27/18 17:20 IMPRESSION: No fracture or dislocation of the left knee status post total knee arthroplasty. Shoulder X-Ray 02/27/18 17:20 IMPRESSION: CHRONIC CHANGES. NO RADIOGRAPHIC EVIDENCE OF ACUTE INJURY. Head CT 02/27/18 19:27 IMPRESSION: No acute intracranial findings. Chest CT 02/28/18 00:00 IMPRESSION: NO SIGNIFICANT FINDING ON NON-CONTRASTED CHEST CT. Assessment & Plan - Diagnosis (1) Syncope Qualifiers: Syncope type: unspecified Qualified Code(s): R55 - Syncope and collapse Is this a current diagnosis for this admission?: Yes Plan: Patient initial CT head is negative Patient also have a significant cardiac issue will consult the cardiology Patient ongoing see the cardiology at [place] was several workup done Patient initial cardiac enzyme and EKG all stable (2) Fever Qualifiers: Fever type: unspecified Qualified Code(s): R50.9 - Fever, unspecified Is this a current diagnosis for this admission?: Yes Plan: Most likely respiratory source but patient is coughing and congestion for the last 2 weeks Patient initial flu test is negative's Patient at this point will start the azithromycin's Unfortunately patients who do not want to try any antibiotic and patient unable to take any Benadryl Discuss very long with the patient if the patient's fever is not getting better then may need to try some vancomycin other antibiotic patient understands very well Will wait for the blood culture urine culture will be at the sputum culture Will continues to Macrobid for questionable urinary tract infection until the urine cultures back (3) UTI (urinary tract infection) Qualifiers: Urinary tract infection type: site unspecified Hematuria presence: without hematuria Qualified Code(s): N39.0 - Urinary tract infection, site not specified Is this a current diagnosis for this admission?: Yes (4) Diabetes mellitus Qualifiers: Diabetes mellitus type: type 2 Diabetes mellitus fdc insulin use: without fdc use Diabetes mellitus complication status: with unspecified complications Qualified Code(s): E11.8 - Type 2 diabetes mellitus with unspecified complications Is this a current diagnosis for this admission?: Yes Plan: Is pretty much diet control (5) CAD S/P percutaneous coronary angioplasty Is this a current diagnosis for this admission?: Yes Plan: We will consult the cardiology rule out the acute coronary syndromes (6) HLD (hyperlipidemia) Qualifiers: Hyperlipidemia type: unspecified Qualified Code(s): E78.5 - Hyperlipidemia, unspecified Is this a current diagnosis for this admission?: Yes Plan: Tinge to current medications (7) HTN (hypertension) Is this a current diagnosis for this admission?: Yes (8) Irritable bowel syndrome Qualifiers: Irritable bowel syndrome type: unspecified Qualified Code(s): K58.9 - Irritable bowel syndrome without diarrhea Is this a current diagnosis for this admission?: Yes Plan: Continue Bentyl (9) Left knee pain Qualifiers: Chronicity: acute Qualified Code(s): M25.562 - Pain in left knee Is this a current diagnosis for this admission?: Yes Plan: Will get the physical therapy evaluations - Time Time Spent: 50 to 70 Minutes Medications reviewed and adjusted accordingly: Yes Anticipated discharge: Home Within: Other - Inpatient Certification Based on my medical assessment, after consideration of the patient's comorbidities, presenting symptoms, or acuity I expect that the services needed warrant INPATIENT care.: Yes I certify that my determination is in accordance with my understanding of Medicare's requirements for reasonable and necessary INPATIENT services [42 CFR 412.3e].: Yes Medical Necessity: Need Close Monitoring Due to Risk of Patient Decompensation, Need For IV Fluids, Need for IV Antibiotics Post Hospital Care: D/C [employer]st Documentation - Plan Summary Plan Summary: Admit the patient in a telemetry bed Unfortunately patient however very limited resources to utilize the antibiotic Will wait for the all the culture Continues to azithromycin and Macrobid p.o.
[2018-02-28] MEDS: BENAZEPRIL HCL 20 MG TABLET PO SCH (12:03)
[2018-02-28] MEDS: DICYCLOMINE HCL 20 MG TABLET PO SCH ×3 (12:03→18:33)
[2018-02-28] MEDS: METOPROLOL TARTRATE 25 MG TABLET PO SCH ×2 (12:03→21:04)
[2018-02-28] MEDS: RANOLAZINE 500 MG TAB.SR.12H PO SCH ×2 (12:04→21:04)
[2018-02-28] MEDS: CLOPIDOGREL BISULFATE 75 MG TABLET PO SCH (12:04)
[2018-02-28] MEDS: AZITHROMYCIN 500 MG in DEXTROSE 5%-WATER 250 ML IV SCH (12:04)
[2018-02-28] MEDS: POLYETHYLENE GLYCOL 3350 POWDER 17 GM/1 PACKET PO SCH (12:04)
[2018-02-28] MEDS: TRAMADOL HCL 50 MG TABLET PO PRN ×2 (13:54→19:54)
[2018-02-28] MEDS ORDERED: PREDNISONE 20 MG TABLET PO ONE (14:00)
[2018-02-28] MEDS ORDERED: AZTREONAM 1 GM in DEXTROSE 5%-WATER 50 ML IV SCH (14:00)
[2018-02-28 14:11] LABS: CREATINE KINASE MB 0.37 ng/mL (<4.55)
[2018-02-28 14:12] LABS: TROPONIN I < 0.012 ng/mL
[2018-02-28] MEDS ORDERED: NITROFURANTOIN MONOHYD/M-CRYST 100 MG CAPSULE PO SCH (18:00)
[2018-02-28] MEDS: CETIRIZINE 5 MG TABLET PO SCH (18:33)
[2018-02-28] MEDS: ATORVASTATIN CALCIUM 20 MG TABLET PO SCH (21:04)
[2018-03-01 05:28] LABS: ANION GAP 6 (5-19); BLOOD UREA NITROGEN 18 mg/dL (7-20); CALCIUM 8.7 mg/dL (8.4-10.2); CARBON DIOXIDE 22 mmol/L (22-30); CHLORIDE 109 mmol/L (98-107); GLUCOSE 117 mg/dL (75-110); SODIUM 137.2 mmol/L (137-145)
[2018-03-01 05:35] LABS: ABSOLUTE LYMPHOCYTES (AUTO) 0.5 10^3/uL (0.5-4.7); ABSOLUTE MONOCYTES (AUTO) 0.2 10^3/uL (0.1-1.4); ABSOLUTE NEUT (AUTO) 2.2 10^3/uL (1.7-8.2); BASOPHILS % (AUTO) 0.2 % (0-2); EOSINOPHILS % (AUTO) 0.3 % (0-6); HEMATOCRIT 30.5 % (36.0-47.0); LYMPHOCYTES % (AUTO) 15.5 % (13-45); MEAN CORPUSCULAR HEMOGLOBIN 25.9 pg (27.0-33.4); MEAN CORPUSCULAR HGB CONC 32.8 g/dL (32.0-36.0); MEAN CORPUSCULAR VOLUME 79 fl (80-97); MONOCYTES % (AUTO) 8.4 % (3-13); PLATELET COUNT 143 10^3/uL (150-450); RED BLOOD COUNT 3.86 10^6/uL (3.72-5.28); RED CELL DISTRIBUTION WIDTH 15.9 % (11.5-14.0); SEGMENTED NEUTROPHILS % (AUTO) 75.6 % (42-78); TOTAL CELLS COUNTED % (AUTO) 100 %; WHITE BLOOD COUNT 2.9 10^3/uL (4.0-10.5)
[2018-03-01] MEDS: NORMAL SALINE 1000 ML 1,000 ML IV PRN (10:39)
[2018-03-01] MEDS: BENAZEPRIL HCL 20 MG TABLET PO SCH (10:57)
[2018-03-01] MEDS: CLOPIDOGREL BISULFATE 75 MG TABLET PO SCH (10:57)
[2018-03-01] MEDS: METOPROLOL TARTRATE 25 MG TABLET PO SCH ×2 (10:58→21:06)
[2018-03-01] MEDS: RANOLAZINE 500 MG TAB.SR.12H PO SCH ×2 (10:58→21:06)
[2018-03-01] MEDS: AZITHROMYCIN 500 MG in DEXTROSE 5%-WATER 250 ML IV SCH (10:58)
[2018-03-01] MEDS: FAMOTIDINE 20 MG TABLET PO SCH ×2 (10:58→18:53)
[2018-03-01] MEDS: ENOXAPARIN SODIUM INJ 40 MG/0.4 ML DISP.SYRIN SUBCUT SCH (11:04)
[2018-03-01] MEDS: POLYETHYLENE GLYCOL 3350 POWDER 17 GM/1 PACKET PO SCH (11:05)
[2018-03-01] MEDS: DICYCLOMINE HCL 20 MG TABLET PO SCH ×3 (11:06→18:53)
[2018-03-01] MEDS: TRAMADOL HCL 50 MG TABLET PO PRN (11:12)
[2018-03-01] MEDS ORDERED: NORMAL SALINE 1000 ML 1,000 ML IV PRN (13:25)
--- NOTE | 2018-03-01 13:27 | PDOC PROGRESS REPORT ---
Subjective Progress Note for:: 03/01/18 Subjective:: Patient is feeling much better No overnight fever Patient still cough congestions As per discussed with the [place] cardiology by myself in the local cardiology Dr. Blankenship and suggest the patient's recent echo and stress test is all normal no need to be transfer and patients follow outpatient cardiology Patient is denied any chest pain to than any shortness of the breath Reason For Visit: SYNCOPAL EPISODE,UTI Physical Exam Vital Signs: Temp Pulse Resp BP Pulse Ox 98.1 F 66 18 173/64 H 99 03/01/18 12:00 03/01/18 12:00 03/01/18 12:00 03/01/18 12:00 03/01/18 12:00 Intake & Output 02/28/18 03/01/18 03/02/18 06:59 06:59 06:59 Intake Total 500 2140 1000 Output Total 375 900 Balance 125 1240 1000 Weight 104.5 kg 104.1 kg General appearance: PRESENT: no acute distress, well-developed, well-nourished Head exam: PRESENT: atraumatic, normocephalic Eye exam: PRESENT: conjunctiva pink, EOMI, PERRLA. ABSENT: scleral icterus Ear exam: PRESENT: normal external ear exam Mouth exam: PRESENT: moist, tongue midline Neck exam: PRESENT: full ROM. ABSENT: carotid bruit, JVD, lymphadenopathy, thyromegaly Respiratory exam: PRESENT: clear to auscultation radha Cardiovascular exam: PRESENT: RRR. ABSENT: diastolic murmur, rubs, systolic murmur Vascular exam: PRESENT: normal capillary refill GI/Abdominal exam: PRESENT: normal bowel sounds, soft. ABSENT: distended, guarding, mass, organolmegaly, rebound, tenderness Rectal exam: PRESENT: deferred Neurological exam: PRESENT: alert, awake, oriented to person, oriented to place, oriented to time, oriented to situation, CN II-XII grossly intact. ABSENT: motor sensory deficit Psychiatric exam: PRESENT: appropriate affect, normal mood. ABSENT: homicidal ideation, suicidal ideation Skin exam: PRESENT: dry, intact, warm. ABSENT: cyanosis, rash Results Laboratory Results: 03/01/18 04:09 03/01/18 04:09 03/01/18 03/01/18 04:09 04:09 WBC 2.9 L RBC 3.86 Hgb 10.0 L Hct 30.5 L MCV 79 L MCH 25.9 L MCHC 32.8 RDW 15.9 H Plt Count 143 L Seg Neutrophils % 75.6 Lymphocytes % 15.5 Monocytes % 8.4 Eosinophils % 0.3 Basophils % 0.2 Absolute Neutrophils 2.2 Absolute Lymphocytes 0.5 Absolute Monocytes 0.2 Absolute Eosinophils 0.0 Absolute Basophils 0.0 Sodium 137.2 Potassium 5.0 Chloride 109 H Carbon Dioxide 22 Anion Gap 6 BUN 18 Creatinine 1.27 H Est GFR ( Amer) 50 L Est GFR (Non-Af Amer) 42 L Glucose 117 H Calcium 8.7 02/27/18 02/27/18 02/28/18 18:47 18:47 01:16 Creatine Kinase 134 128 CK-MB (CK-2) 0.55 Troponin I 0.014 02/28/18 02/28/18 02/28/18 01:16 07:17 07:17 Creatine Kinase 113 CK-MB (CK-2) 0.56 0.27 Troponin I < 0.012 < 0.012 02/28/18 02/28/18 13:16 13:16 Creatine Kinase 128 CK-MB (CK-2) 0.37 Troponin I < 0.012 Impressions: Chest X-Ray 02/27/18 17:19 IMPRESSION: No acute abnormality of the lungs. No focal airspace opacity. Knee X-Ray 02/27/18 17:20 IMPRESSION: No fracture or dislocation of the left knee status post total knee arthroplasty. Shoulder X-Ray 02/27/18 17:20 IMPRESSION: CHRONIC CHANGES. NO RADIOGRAPHIC EVIDENCE OF ACUTE INJURY. Head CT 02/27/18 19:27 IMPRESSION: No acute intracranial findings. Chest CT 02/28/18 00:00 IMPRESSION: NO SIGNIFICANT FINDING ON NON-CONTRASTED CHEST CT. Assessment & Plan - Diagnosis (1) Syncope Qualifiers: Syncope type: unspecified Qualified Code(s): R55 - Syncope and collapse Is this a current diagnosis for this admission?: Yes Plan: Currently all stable (2) Fever Qualifiers: Fever type: unspecified Qualified Code(s): R50.9 - Fever, unspecified Is this a current diagnosis for this admission?: Yes Plan: Continues azithromycin all cultures so far negative except the sputum culture is still pending (3) UTI (urinary tract infection) Qualifiers: Urinary tract infection type: site unspecified Hematuria presence: without hematuria Qualified Code(s): N39.0 - Urinary tract infection, site not specified Is this a current diagnosis for this admission?: Yes (4) Diabetes mellitus Qualifiers: Diabetes mellitus type: type 2 Diabetes mellitus chcf insulin use: without chcf use Diabetes mellitus complication status: with unspecified complications Qualified Code(s): E11.8 - Type 2 diabetes mellitus with unspecified complications Is this a current diagnosis for this admission?: Yes Plan: Is pretty much diet control (5) CAD S/P percutaneous coronary angioplasty Is this a current diagnosis for this admission?: Yes Plan: We will consult the cardiology rule out the acute coronary syndromes (6) HLD (hyperlipidemia) Qualifiers: Hyperlipidemia type: unspecified Qualified Code(s): E78.5 - Hyperlipidemia, unspecified Is this a current diagnosis for this admission?: Yes Plan: Tinge to current medications (7) HTN (hypertension) Is this a current diagnosis for this admission?: Yes (8) Irritable bowel syndrome Qualifiers: Irritable bowel syndrome type: unspecified Qualified Code(s): K58.9 - Irritable bowel syndrome without diarrhea Is this a current diagnosis for this admission?: Yes Plan: Continue Bentyl (9) Left knee pain Qualifiers: Chronicity: acute Qualified Code(s): M25.562 - Pain in left knee Is this a current diagnosis for this admission?: Yes - Time Time Spent with patient: 15-24 minutes Medications reviewed and adjusted accordingly: Yes Anticipated discharge: Home Within: within 24 hours - Inpatient Certification Based on my medical assessment, after consideration of the patient's comorbidities, presenting symptoms, or acuity I expect that the services needed warrant INPATIENT care.: Yes I certify that my determination is in accordance with my understanding of [facility]'s requirements for reasonable and necessary INPATIENT services [42 CFR 412.3e].: Yes - Plan Summary Plan Summary: Discussed with the patient and the family to encourage to walk around We will cut down the IV fluid Continues to azithromycin's Hopefully discharge tomorrow morning if is remained stable
[2018-03-01] MEDS: CETIRIZINE 5 MG TABLET PO SCH (18:53)
[2018-03-01] MEDS: ACETAMINOPHEN 325 MG TABLET PO PRN (20:24)
[2018-03-01] MEDS: ATORVASTATIN CALCIUM 20 MG TABLET PO SCH (21:06)
[2018-03-02 07:04] LABS: HEMATOCRIT 33.3 % (36.0-47.0); HEMOGLOBIN 10.9 g/dL (12.0-15.5); MEAN CORPUSCULAR HEMOGLOBIN 26.8 pg (27.0-33.4); MEAN CORPUSCULAR HGB CONC 32.7 g/dL (32.0-36.0); MEAN CORPUSCULAR VOLUME 82 fl (80-97); PLATELET COUNT 130 10^3/uL (150-450); RED BLOOD COUNT 4.07 10^6/uL (3.72-5.28); RED CELL DISTRIBUTION WIDTH 15.7 % (11.5-14.0)
[2018-03-02 07:30] LABS: ANION GAP 7 (5-19); BLOOD UREA NITROGEN 21 mg/dL (7-20); CALCIUM 8.6 mg/dL (8.4-10.2); CARBON DIOXIDE 23 mmol/L (22-30); CHLORIDE 110 mmol/L (98-107); GLUCOSE 82 mg/dL (75-110); POTASSIUM 4.7 mmol/L (3.6-5.0); SODIUM 140.1 mmol/L (137-145)
[2018-03-02 07:41] LABS: WHITE BLOOD COUNT 1.8 10^3/uL (4.0-10.5)
[2018-03-02 07:49] LABS: ABSOLUTE LYMPHOCYTES# (MANUAL) 0.6 10^3/uL (0.5-4.7); ABSOLUTE MONOCYTES # (MANUAL) 0.2 10^3/uL (0.1-1.4); BAND NEUTROPHILS % (MANUAL) 2 % (3-5); BASOPHILS % (MANUAL) 0 % (0-2); EOSINOPHILS % (MANUAL) 0 % (0-6); HYPOCHROMASIA 1+; LYMPHOCYTES % (MANUAL) 34 % (13-45); MONOCYTES % (MANUAL) 12 % (3-13); SEGMENTED NEUTROPHILS % (MAN) 52 % (42-78); TOTAL CELLS COUNTED 100; TOXIC GRANULATION 1+; TOXIC VACUOLATION PRESENT
[2018-03-02 07:50] LABS: OVALOCYTES 2+; PLATELET CLUMPS PRESENT; POIKILOCYTOSIS 2+; ROULEAUX 1+; TEAR DROP CELLS 1+
[2018-03-02] MEDS ORDERED: NORMAL SALINE 1000 ML 1,000 ML IV PRN (08:28)
--- NOTE | 2018-03-02 09:50 | RADIOLOGY REPORT (SQ) ---
EXAM DESCRIPTION: CHEST 2 VIEWS COMPLETED DATE/TIME: 03/02/2018 9:41 am REASON FOR STUDY: cough COMPARISON: 02/27/2018 EXAM PARAMETERS: NUMBER OF VIEWS: two views TECHNIQUE: Digital Frontal and Lateral radiographic views of the chest acquired. RADIATION DOSE: NA LIMITATIONS: none FINDINGS: LUNGS AND PLEURA: No opacities, masses or pneumothorax. No pleural effusion. MEDIASTINUM AND HILAR STRUCTURES: No masses or contour abnormalities. HEART AND VASCULAR STRUCTURES: Heart normal size. No evidence for failure. BONES: No acute findings. HARDWARE: None in the chest. OTHER: No other significant finding. IMPRESSION: 1. No significant interval changes since the prior examination dated 02/27/2018. No acu te findings. TECHNICAL DOCUMENTATION: JOB ID: [id number] [employer]- All Rights Reserved Reading location - IP/workstation name: [email or web address]
--- NOTE | 2018-03-02 09:52 | PDOC PROGRESS REPORT ---
Subjective Progress Note for:: 03/02/18 Subjective:: Patient is currently doing fair Patient's white count is 1.8 and platelet count is low Patient usually see database admin once a year for that Patient still have a 2 band Patient having no fever since last 2 days Patient's denied any chest pain denied any shortness of breath Patient to currently taking the azithromycin Patient all culture is negative Patient still have a cough Reason For Visit: SYNCOPAL EPISODE,UTI Physical Exam Vital Signs: Temp Pulse Resp BP Pulse Ox 98.4 F 54 L 16 146/63 H 94 03/02/18 07:46 03/02/18 07:46 03/02/18 07:46 03/02/18 07:46 03/02/18 07:46 Intake & Output 03/01/18 03/02/18 03/03/18 06:59 06:59 06:59 Intake Total 2140 2170 Output Total 900 2900 Balance 1240 -730 Weight 104.1 kg 103.4 kg General appearance: PRESENT: no acute distress, well-developed, well-nourished Head exam: PRESENT: atraumatic, normocephalic Eye exam: PRESENT: conjunctiva pink, EOMI, PERRLA. ABSENT: scleral icterus Ear exam: PRESENT: normal external ear exam Mouth exam: PRESENT: moist, tongue midline Neck exam: PRESENT: full ROM. ABSENT: carotid bruit, JVD, lymphadenopathy, thyromegaly Respiratory exam: PRESENT: clear to auscultation radha Cardiovascular exam: PRESENT: RRR. ABSENT: diastolic murmur, rubs, systolic murmur Pulses: PRESENT: normal dorsalis pedis pul, +2 pedal pulses bilateral Vascular exam: PRESENT: normal capillary refill GI/Abdominal exam: PRESENT: normal bowel sounds, soft. ABSENT: distended, guarding, mass, organolmegaly, rebound, tenderness Rectal exam: PRESENT: deferred Musculoskeletal exam: PRESENT: ambulatory Neurological exam: PRESENT: alert, awake, oriented to person, oriented to place, oriented to time, oriented to situation, CN II-XII grossly intact. ABSENT: motor sensory deficit Psychiatric exam: PRESENT: appropriate affect, normal mood. ABSENT: homicidal ideation, suicidal ideation Skin exam: PRESENT: dry, intact, warm. ABSENT: cyanosis, rash Results Laboratory Results: 03/02/18 06:02 03/02/18 06:02 03/02/18 03/02/18 06:02 06:02 WBC 1.8 L D RBC 4.07 Hgb 10.9 L Hct 33.3 L MCV 82 MCH 26.8 L MCHC 32.7 RDW 15.7 H Plt Count 130 L Seg Neutrophils % Not Reportable Lymphocytes % Not Reportable Monocytes % Not Reportable Eosinophils % Not Reportable Basophils % Not Reportable Absolute Neutrophils Not Reportable Absolute Lymphocytes Not Reportable Absolute Monocytes Not Reportable Absolute Eosinophils Not Reportable Absolute Basophils Not Reportable Sodium 140.1 Potassium 4.7 Chloride 110 H Carbon Dioxide 23 Anion Gap 7 BUN 21 H Creatinine 1.47 H Est GFR ( Amer) 43 L Est GFR (Non-Af Amer) 35 L Glucose 82 Calcium 8.6 02/28/18 13:55 Sputum Gram Stain - Final 02/28/18 13:55 Sputum Sputum Culture - Final 02/27/18 02/27/18 02/28/18 18:47 18:47 01:16 Creatine Kinase 134 128 CK-MB (CK-2) 0.55 Troponin I 0.014 02/28/18 02/28/18 02/28/18 01:16 07:17 07:17 Creatine Kinase 113 CK-MB (CK-2) 0.56 0.27 Troponin I < 0.012 < 0.012 02/28/18 02/28/18 13:16 13:16 Creatine Kinase 128 CK-MB (CK-2) 0.37 Troponin I < 0.012 Impressions: Knee X-Ray 02/27/18 17:20 IMPRESSION: No fracture or dislocation of the left knee status post total knee arthroplasty. Shoulder X-Ray 02/27/18 17:20 IMPRESSION: CHRONIC CHANGES. NO RADIOGRAPHIC EVIDENCE OF ACUTE INJURY. Head CT 02/27/18 19:27 IMPRESSION: No acute intracranial findings. Chest CT 02/28/18 00:00 IMPRESSION: NO SIGNIFICANT FINDING ON NON-CONTRASTED CHEST CT. Assessment & Plan - Diagnosis (1) Syncope Qualifiers: Syncope type: unspecified Qualified Code(s): R55 - Syncope and collapse Is this a current diagnosis for this admission?: Yes Plan: Currently all stable no episodes while in the hospital (2) Fever Qualifiers: Fever type: unspecified Qualified Code(s): R50.9 - Fever, unspecified Is this a current diagnosis for this admission?: Yes Plan: All cultures negative (3) UTI (urinary tract infection) Qualifiers: Urinary tract infection type: site unspecified Hematuria presence: without hematuria Qualified Code(s): N39.0 - Urinary tract infection, site not specified Is this a current diagnosis for this admission?: Yes (4) Diabetes mellitus Qualifiers: Diabetes mellitus type: type 2 Diabetes mellitus intermediate project manager insulin use: without intermediate project manager use Diabetes mellitus complication status: with unspecified complications Qualified Code(s): E11.8 - Type 2 diabetes mellitus with unspecified complications Is this a current diagnosis for this admission?: Yes Plan: Is pretty much diet control (5) CAD S/P percutaneous coronary angioplasty Is this a current diagnosis for this admission?: Yes Plan: We will consult the cardiology rule out the acute coronary syndromes (6) HLD (hyperlipidemia) Qualifiers: Hyperlipidemia type: unspecified Qualified Code(s): E78.5 - Hyperlipidemia, unspecified Is this a current diagnosis for this admission?: Yes Plan: Tinge to current medications (7) HTN (hypertension) Is this a current diagnosis for this admission?: Yes (8) Irritable bowel syndrome Qualifiers: Irritable bowel syndrome type: unspecified Qualified Code(s): K58.9 - Irritable bowel syndrome without diarrhea Is this a current diagnosis for this admission?: Yes Plan: Continue Bentyl (9) Left knee pain Qualifiers: Chronicity: acute Qualified Code(s): M25.562 - Pain in left knee Is this a current diagnosis for this admission?: Yes (10) Pancytopenia Is this a current diagnosis for this admission?: Yes Plan: We consult the database admin for further evaluations (11) Cough Is this a current diagnosis for this admission?: Yes Plan: Respiratory disease Patient is currently on Pepcid also Patient CT chest was all negative We stop the benazepril Start the patient on the losartan Consult the pulmonary - Time Time Spent with patient: 15-24 minutes Medications reviewed and adjusted accordingly: Yes Anticipated discharge: Home Within: Other - Plan Summary Plan Summary: Continues to current medications
[2018-03-02] MEDS: RANOLAZINE 500 MG TAB.SR.12H PO SCH ×2 (10:02→22:00)
[2018-03-02] MEDS: POLYETHYLENE GLYCOL 3350 POWDER 17 GM/1 PACKET PO SCH (10:02)
[2018-03-02] MEDS: DICYCLOMINE HCL 20 MG TABLET PO SCH ×3 (10:03→17:43)
[2018-03-02] MEDS: DOCUSATE SODIUM 100 MG CAPSULE PO SCH ×2 (10:03→17:42)
[2018-03-02] MEDS: FAMOTIDINE 20 MG TABLET PO SCH ×2 (10:03→17:43)
[2018-03-02] MEDS: LOSARTAN POTASSIUM 50 MG TABLET PO SCH (10:03)
[2018-03-02] MEDS: CLOPIDOGREL BISULFATE 75 MG TABLET PO SCH (10:03)
[2018-03-02] MEDS: METOPROLOL TARTRATE 25 MG TABLET PO SCH ×2 (10:03→22:00)
[2018-03-02] MEDS: ENOXAPARIN SODIUM INJ 40 MG/0.4 ML DISP.SYRIN SUBCUT SCH (10:04)
[2018-03-02] MEDS: AZITHROMYCIN 500 MG in DEXTROSE 5%-WATER 250 ML IV SCH (10:04)
[2018-03-02] MEDS: ACETAMINOPHEN 325 MG TABLET PO PRN (10:16)
--- NOTE | 2018-03-02 13:10 | PDOC CONSULTATION ---
Consultation Consult Date: 03/02/18 Attending physician:: RYDER HERNANDEZ Consult reason:: Cough History of Present Illness Admission Date/PCP: 02/27/18 21:38 RYDER HERNANDEZ MD History of Present Illness: ELISABETH SUNG is a 72 year old female, complains of cough and yellow phlegm no hemoptysis PPD was negative dates unknown no chills questionable fever chronic lung disease as a child. She admits to exposure to passive smoke as a child as well as an adult. She herself has never smoked worked in a [employer] for 40 years. No pets no recent travel. No anginal-like chest pain sleeps on 4 benito ws, no PND occasional nocturnal cough occasional edema. To snoring restless sleep nocturia 2-3 times per night unrestful sleep and excessive daytime somnolence. She does admit to some dysphasia that results in episodic coughing Past Medical History Cardiac Medical History: Reports: Coronary Artery Disease, Myocardial Infarction - x 4, Hyperlipidema, Hypertension Pulmonary Medical History: Reports: Bronchitis, Pneumonia, Sleep Apnea Denies: Asthma, Chronic Obstructive Pulmonary Disease (COPD), Tuberculosis Neurological Medical History: Denies: Hemorrhagic CVA, Ischemic CVA, Multiple Sclerosis, Seizures Endocrine Medical History: Reports: Diabetes Mellitus Type 1, Diabetes Mellitus Type 2 - diet controlled Renal/ Medical History: Denies: Nephrolithiasis GI Medical History: Reports: Gastroesophageal Reflux Disease Musculoskeltal Medical History: Reports: Arthritis Psychiatric Medical History: Reports: Depression Hematology: Reports: Anemia Infectious Medical History: Denies: HIV Past Surgical History Past Surgical History: Reports: Appendectomy, Cardiac Catheterization, Coronary Stent, Hysterectomy, Orthopedic Surgery - Bilateral total knee replacements. Bilateral shoulder surgeries., Tonsillectomy Social History Information Source: Patient, [facility] Records Lives with: Alone Smoking Status: Never Smoker Passive smoke exposure as: Both Frequency of Alcohol Use: None Hx Recreational Drug Use: No Drugs: None Hx Prescription Drug Abuse: No Do you have pets?: No Have you had any respiratory illnesses as a child?: No Have you been exposed to any sick contacts recently?: No Have you had any recent respiratory illnesses?: Yes Have you travelled outside of [place] in the past 12 months?: No Family History Family History: CAD, Hypertension, Malignancy Parental Family History Reviewed: Yes Children Family History Reviewed: Yes Sibling(s) Family History Reviewed.: Yes Medication/Allergy Home Medications: Atorvastatin Calcium [Lipitor 20 mg Tablet] 20 mg PO QHS 02/28/18 Benazepril HCl [Lotensin] 40 mg PO DAILY 02/28/18 Clopidogrel Bisulfate [Plavix 75 mg Tablet] 75 mg PO DAILY 02/28/18 Dicyclomine HCl [Bentyl 20 mg Tablet] 20 mg PO TID 02/28/18 Levocetirizine Dihydrochloride [Xyzal] 5 mg PO QPM 02/28/18 Metoprolol Tartrate [Lopressor 25 mg Tablet] 25 mg PO Q12 02/28/18 Polyethylene Glycol 3350 [Miralax Powder 17 gm/Packet] 1 packet PO DAILY 02/28/18 Ranolazine [Ranexa 500 mg Tab.sr] 500 mg PO Q12 02/28/18 Allergies/Adverse Reactions: betamethasone [Betamethasone] Allergy (Intermediate, Verified 02/27/18 15:09) burning skin ceftriaxone sodium [From Rocephin] Allergy (Intermediate, Verified 02/27/18 15:09) Urticaria ciprofloxacin [From Cipro] Allergy (Intermediate, Verified 02/27/18 15:09) Urticaria clindamycin [Clindamycin] Allergy (Intermediate, Verified 02/27/18 15:09) Urticaria clotrimazole [Clotrimazole] Allergy (Intermediate, Verified 02/27/18 15:09) burning skin diphenhydramine HCl [From Benadryl] Allergy (Intermediate, Verified 02/27/18 15:09) Urticaria doxycycline [Doxycycline] Allergy (Intermediate, Verified 02/27/18 15:09) Urticaria latex [Latex] Allergy (Intermediate, Verified 02/27/18 15:09) Urticaria metronidazole [From Flagyl] Allergy (Intermediate, Verified 02/27/18 15:09) Urticaria oxycodone [Oxycodone] Allergy (Intermediate, Verified 02/27/18 15:09) Penicillins Allergy (Intermediate, Verified 02/27/18 15:09) Urticaria Sulfa (Sulfonamide Antibiotics) Allergy (Intermediate, Verified 02/27/18 15:09) Urticaria acetaminophen [From Vicodin] Allergy (Verified 02/27/18 15:09) hydrocodone bitartrate [From Vicodin] Allergy (Verified 02/27/18 15:09) mupirocin [From Bactroban] Allergy (Verified 02/27/18 15:09) aspirin [Aspirin] Adverse Reaction (Mild, Verified 02/27/18 15:09) Nausea PAPER TAPE Allergy (Uncoded 02/27/18 15:09) Blisters Review of Systems Constitutional: PRESENT: fatigue, weakness. ABSENT: anorexia, chills, headache(s), night sweats Eyes: ABSENT: visual disturbances Ears: ABSENT: hearing changes Nose, Mouth, and Throat: PRESENT: sore throat. ABSENT: mouth pain Cardiovascular: PRESENT: dyspnea on exertion, edema, orthropnea. ABSENT: palpitations Respiratory: PRESENT: cough, dyspnea, sputum. ABSENT: hemoptysis Gastrointestinal: ABSENT: abdominal pain, bloating, coffee ground emesis, dysphagia, hematemesis, hematochezia, melena Genitourinary: ABSENT: dysuria, hematuria Integumentary: ABSENT: pruritus, rash Neurological: ABSENT: abnormal speech, confusion, focal weakness, frequent f alls, memory loss Psychiatric: ABSENT: anxiety, depression, hallucinations, homidical ideation, suicidal ideation Endocrine: ABSENT: cold intolerance, heat intolerance, polydipsia, polyuria Hematologic/Lymphatic: PRESENT: easy bruising. ABSENT: lymphadenopathy Allergic/Immunologic: ABSENT: seasonal rhinorrhea Physical Exam Vital Signs: Temp Pulse Resp BP Pulse Ox 98.6 F 57 L 16 130/58 H 97 03/02/18 11:41 03/02/18 11:41 03/02/18 11:41 03/02/18 11:41 03/02/18 11:41 Intake & Output 03/01/18 03/02/18 03/03/18 06:59 06:59 06:59 Intake Total 2140 2420 Output Total 900 2900 Balance 1240 -480 Weight 104.1 kg 103.4 kg General appearance: PRESENT: no acute distress, cooperative, disheveled, obese Head exam: PRESENT: atraumatic, normocephalic Eye exam: PRESENT: conjunctiva pale, EOMI. ABSENT: nystagmus, scleral icterus Mouth exam: PRESENT: dry mucosa, neck supple, tongue midline Neck exam: ABSENT: carotid bruit, JVD, lymphadenopathy, thyromegaly, tracheal de viation, tracheostomy Respiratory exam: PRESENT: decreased breath sounds, prolonged expiratory phas, rales, rhonchi, unlabored. ABSENT: retraction, stridor, tachypnea Cardiovascular exam: PRESENT: RRR, +S1, +S2 Pulses: PRESENT: normal radial pulses GI/Abdominal exam: PRESENT: soft. ABSENT: tenderness Extremities exam: ABSENT: calf tenderness, clubbing, joint swelling, pedal edema Musculoskeletal exam: ABSENT: deformity, dislocation Neurological exam: PRESENT: alert, awake Psychiatric exam: PRESENT: appropriate affect Skin exam: PRESENT: dry, warm Results Laboratory Results: 03/02/18 06:02 03/02/18 06:02 03/02/18 03/02/18 06:02 06:02 WBC 1.8 L D RBC 4.07 Hgb 10.9 L Hct 33.3 L MCV 82 MCH 26.8 L MCHC 32.7 RDW 15.7 H Plt Count 130 L Seg Neutrophils % Not Reportable Lymphocytes % Not Reportable Monocytes % Not Reportable Eosinophils % Not Reportable Basophils % Not Reportable Absolute Neutrophils Not Reportable Absolute Lymphocytes Not Reportable Absolute Monocytes Not Reportable Absolute Eosinophils Not Reportable Absolute Basophils Not Reportable Sodium 140.1 Potassium 4.7 Chloride 110 H Carbon Dioxide 23 Anion Gap 7 BUN 21 H Creatinine 1.47 H Est GFR ( Amer) 43 L Est GFR (Non-Af Amer) 35 L Glucose 82 Calcium 8.6 02/28/18 13:55 Sputum Gram Stain - Final 02/28/18 13:55 Sputum Sputum Culture - Final 02/27/18 02/27/18 02/28/18 18:47 18:47 01:16 Creatine Kinase 134 128 CK-MB (CK-2) 0.55 Troponin I 0.014 02/28/18 02/28/18 02/28/18 01:16 07:17 07:17 Creatine Kinase 113 CK-MB (CK-2) 0.56 0.27 Troponin I < 0.012 < 0.012 02/28/18 02/28/18 13:16 13:16 Creatine Kinase 128 CK-MB (CK-2) 0.37 Troponin I < 0.012 Impressions: Knee X-Ray 02/27/18 17:20 IMPRESSION: No fracture or dislocation of the left knee status post total knee arthroplasty. Shoulder X-Ray 02/27/18 17:20 IMPRESSION: CHRONIC CHANGES. NO RADIOGRAPHIC EVIDENCE OF ACUTE INJURY. Head CT 01/18/19 19:27 IMPRESSION: No acute intracranial findings. Chest CT 02/28/18 00:00 IMPRESSION: NO SIGNIFICANT FINDING ON NON-CONTRASTED CHEST CT. Chest X-Ray 03/02/18 00:00 IMPRESSION: 1. No significant interval changes since the prior examination dated 02/27/2018. No acute findings. Assessment & Plan - Diagnosis (1) Cough Is this a current diagnosis for this admission?: Yes Plan: mod ba swallow (2) Pancytopenia Is this a current diagnosis for this admission?: Yes Plan: virus panel per heme-onc (3) HTN (hypertension) Is this a current diagnosis for this admission?: Yes Plan: stable
[2018-03-02 13:49] LABS: PATH REVIEW PATHOLOGIST REVIEWED
[2018-03-02] MEDS: BENZONATATE 100 MG CAPSULE PO SCH ×2 (13:54→22:00)
[2018-03-02] MEDS ORDERED: ONDANSETRON HCL INJ/PF 4 MG/2 ML SDV IV PRN (15:30)
[2018-03-02] MEDS: CETIRIZINE 5 MG TABLET PO SCH (17:43)
--- NOTE | 2018-03-02 18:08 | PDOC CONSULTATION ---
Consultation Consult Date: 03/02/18 Consult reason:: Hematology/Oncology consultation was requested for patient with low WBC count. History of Present Illness Admission Date/PCP: 02/27/18 21:38 RYDER HERNANDEZ MD History of Present Illness: ELISABETH SUNG is a 72 year old female who is followed in our office for longstanding history of anemia and mild leukopenia. Her baseling HGB is 10-11 and her normal WBC count is 2-3. Her ANC is usually 1.2-1.5. Patient states that the day prior to admission, she just "blanked out." She has had syncope several times in the past in our office after blood draw. However, she denies any aggravating factors this time. She continued to feel poorly the rest of the day and presented tot he ED with a fever. She also states that she has had new headaches over the last month. She denies any URI or pulmonary symptoms. She denies any new bladder or bowel symptoms. Past Medical History Cardiac Medical History: Reports: Coronary Artery Disease, Myocardial Infarction - x 4, Hyperlipidema, Hypertension Pulmonary Medical History: Reports: Bronchitis, Pneumonia, Sleep Apnea Denies: Asthma, Chronic Obstructive Pulmonary Disease (COPD), Tuberculosis Neurological Medical History: Denies: Hemorrhagic CVA, Ischemic CVA, Multiple Sclerosis, Seizures Endocrine Medical History: Reports: Diabetes Mellitus Type 1, Diabetes Mellitus Type 2 - diet controlled Renal/ Medical History: Reports: Chronic Kidney Disease Denies: Nephrolithiasis GI Medical History: Reports: Gastroesophageal Reflux Disease Musculoskeltal Medical History: Reports: Arthritis Psychiatric Medical History: Reports: Depression Hematology: Reports: Anemia Infectious Medical History: Denies: HIV Past Surgical History Past Surgical History: Reports: Appendectomy, Cardiac Catheterization, Coronary Stent, Hysterectomy, Orthopedic Surgery - Bilateral total knee replacements. Bilateral shoulder surgeries., Tonsillectomy Social History Information Source: Patient Lives with: Alone Smoking Status: Never Smoker Frequency of Alcohol Use: None Hx Recreational Drug Use: No Drugs: None Hx Prescription Drug Abuse: No Family History Family History: CAD, Hypertension, Malignancy Family History: Lung Cancer, HTN, DM, CVA, CAD Parental Family History Reviewed: Yes Children Family History Reviewed: Yes Sibling(s) Family History Reviewed.: Yes Medication/Allergy Home Medications: Atorvastatin Calcium [Lipitor 20 mg Tablet] 20 mg PO QHS 02/28/18 Benazepril HCl [Lotensin] 40 mg PO DAILY 02/28/18 Clopidogrel Bisulfate [Plavix 75 mg Tablet] 75 mg PO DAILY 02/28/18 Dicyclomine HCl [Bentyl 20 mg Tablet] 20 mg PO TID 02/28/18 Levocetirizine Dihydrochloride [Xyzal] 5 mg PO QPM 02/28/18 Metoprolol Tartrate [Lopressor 25 mg Tablet] 25 mg PO Q12 02/28/18 Polyethylene Glycol 3350 [Miralax Powder 17 gm/Packet] 1 packet PO DAILY 02/28/18 Ranolazine [Ranexa 500 mg Tab.sr] 500 mg PO Q12 02/28/18 Allergies/Adverse Reactions: betamethasone [Betamethasone] Allergy (Intermediate, Verified 02/27/18 15:09) burning skin ceftriaxone sodium [From Rocephin] Allergy (Intermediate, Verified 02/27/18 15:0 9) Urticaria ciprofloxacin [From Cipro] Allergy (Intermediate, Verified 02/27/18 15:09) Urticaria clindamycin [Clindamycin] Allergy (Intermediate, Verified 02/27/18 15:09) Urticaria clotrimazole [Clotrimazole] Allergy (Intermediate, Verified 02/27/18 15:09) burning skin diphenhydramine HCl [From Benadryl] Allergy (Intermediate, Verified 02/27/18 15:09) Urticaria doxycycline [Doxycycline] Allergy (Intermediate, Verified 02/27/18 15:09) Urticaria latex [Latex] Allergy (Intermediate, Verified 02/27/18 15:09) Urticaria metronidazole [From Flagyl] Allergy (Intermediate, Verified 02/27/18 15:09) Urticaria oxycodone [Oxycodone] Allergy (Intermediate, Verified 02/27/18 15:09) Penicillins Allergy (Intermediate, Verified 02/27/18 15:09) Urticaria Sulfa (Sulfonamide Antibiotics) Allergy (Intermediate, Verified 02/27/18 15:09) Urticaria acetaminophen [From Vicodin] Allergy (Verified 02/27/18 15:09) hydrocodone bitartrate [From Vicodin] Allergy (Verified 02/27/18 15:09) mupirocin [From Bactroban] Allergy (Verified 02/27/18 15:09) aspirin [Aspirin] Adverse Reaction (Mild, Verified 02/27/18 15:09) Nausea PAPER TAPE Allergy (Uncoded 02/27/18 15:09) Blisters Review of Systems Constitutional: PRESENT: fever(s), headache(s) Eyes: ABSENT: visual disturbances Ears: ABSENT: hearing changes Nose, Mouth, and Throat: ABSENT: sore throat Cardiovascular: ABSENT: chest pain Respiratory: ABSENT: dyspnea Gastrointestinal: PRESENT: constipation. ABSENT: nausea Genitourinary: ABSENT: dysuria, hematuria Integumentary: ABSENT: rash Neurological: PRESENT: as per HPI Hematologic/Lymphatic: ABSENT: easy bleeding Physical Exam Vital Signs: Temp Pulse Resp BP Pulse Ox 98.7 F 52 L 15 174/67 H 100 03/02/18 15:35 03/02/18 15:35 03/02/18 15:35 03/02/18 15:35 03/02/18 15:35 Intake & Output 03/01/18 03/02/18 03/03/18 06:59 06:59 06:59 Intake Total 2140 2420 Output Total 900 2900 Balance 1240 -480 Weight 104.1 kg 103.4 kg General appearance: PRESENT: obese Exam: 72 year old Female. Head exam: PRESENT: atraumatic, normocephalic Eye exam: PRESENT: EOMI Mouth exam: PRESENT: tongue midline Neck exam: ABSENT: lymphadenopathy, tenderness Respiratory exam: PRESENT: clear to auscultation radha, unlabored Cardiovascular exam: PRESENT: RRR Vascular exam: ABSENT: pallor GI/Abdominal exam: PRESENT: soft. ABSENT: tenderness Extremities exam: ABSENT: pedal edema Neurological exam: PRESENT: alert, awake Psychiatric exam: PRESENT: appropriate affect Skin exam: PRESENT: normal color Results Laboratory Results: 03/02/18 06:02 03/02/18 06:02 03/02/18 03/02/18 06:02 06:02 WBC 1.8 L D RBC 4.07 Hgb 10.9 L Hct 33.3 L MCV 82 MCH 26.8 L MCHC 32.7 RDW 15.7 H Plt Count 130 L Seg Neutrophils % Not Reportable Lymphocytes % Not Reportable Monocytes % Not Reportable Eosinophils % Not Reportable Basophils % Not Reportable Absolute Neutrophils Not Reportable Absolute Lymphocytes Not Reportable Absolute Monocytes Not Reportable Absolute Eosinophils Not Reportable Absolute Basophils Not Reportable Sodium 140.1 Potassium 4.7 Chloride 110 H Carbon Dioxide 23 Anion Gap 7 BUN 21 H Creatinine 1.47 H Est GFR ( Amer) 43 L Est GFR (Non-Af Amer) 35 L Glucose 82 Calcium 8.6 02/28/18 03:05 Clean Catch Midstream Urine Culture - Final Urogenital Breanne 02/28/18 13:55 Sputum Gram Stain - Final 02/28/18 13:55 Sputum Sputum Culture - Final 02/27/18 02/27/18 02/28/18 18:47 18:47 01:16 Creatine Kinase 134 128 CK-MB (CK-2) 0.55 Troponin I 0.014 02/28/18 02/28/18 02/28/18 01:16 07:17 07:17 Creatine Kinase 113 CK-MB (CK-2) 0.56 0.27 Troponin I < 0.012 < 0.012 02/28/18 02/28/18 13:16 13:16 Creatine Kinase 128 CK-MB (CK-2) 0.37 Troponin I < 0.012 Impressions: Knee X-Ray 02/27/18 17:20 IMPRESSION: No fracture or dislocation of the left knee status post total knee arthroplasty. Shoulder X-Ray 02/27/18 17:20 IMPRESSION: CHRONIC CHANGES. NO RADIOGRAPHIC EVIDENCE OF ACUTE INJURY. Head CT 02/27/18 19:27 IMPRESSION: No acute intracranial findings. Chest CT 02/28/18 00:00 IMPRESSION: NO SIGNIFICANT FINDING ON NON-CONTRASTED CHEST CT. Chest X-Ray 03/02/18 00:00 IMPRESSION: 1. No significant interval changes since the prior examination dated 02/27/2018. No acute findings. Assessment & Plan - Diagnosis (1) Pancytopenia Is this a current diagnosis for this admission?: Yes Plan: She was at her baseline WBC count until today. She has genetically lower "jennifer l" WBC count. However, with ANC 1.0, this is lower than her normal. She has had no fever for 48 hours. She is still at her baseline HGB and her PLT are only slightly lower than her normal. I would like to repeat CBC again in the morning. If her blood counts continue to drop, then consider bone marrow biopsy. However, her current levels could be contributed to a mixture of infection, antibiotics, dilution, or other cause. We will continue to follow her here as well as outpatient. (2) Syncope Qualifiers: Syncope type: unspecified Qualified Code(s): R55 - Syncope and collapse Is this a current diagnosis for this admission?: Yes Plan: Unclear as to cause at this time. Work-up is in progress. CT head without contrast was negative. Her headaches have been worse lately. If headaches and syncope continue, consider contrasted CT or MRI of the brain. (3) Fever Qualifiers: Fever type: unspecified Qualified Code(s): R50.9 - Fever, unspecified Is this a current diagnosis for this admission?: Yes Plan: Now resolved on antibiotics. - Plan Summary Plan Summary: Thank you for this consultation. Dr. Becker will see her in the morning. Please call with any questions or concerns.
[2018-03-02] MEDS: ATORVASTATIN CALCIUM 20 MG TABLET PO SCH (22:00)
[2018-03-03] MEDS: BENZONATATE 100 MG CAPSULE PO SCH ×3 (05:09→21:40)
[2018-03-03 07:27] LABS: HEMATOCRIT 32.7 % (36.0-47.0); HEMOGLOBIN 10.6 g/dL (12.0-15.5); MEAN CORPUSCULAR HEMOGLOBIN 26.6 pg (27.0-33.4); MEAN CORPUSCULAR HGB CONC 32.3 g/dL (32.0-36.0); MEAN CORPUSCULAR VOLUME 83 fl (80-97); PLATELET COUNT 127 10^3/uL (150-450); RED BLOOD COUNT 3.96 10^6/uL (3.72-5.28); RED CELL DISTRIBUTION WIDTH 15.9 % (11.5-14.0); WHITE BLOOD COUNT 1.6 10^3/uL (4.0-10.5)
[2018-03-03] MEDS: DICYCLOMINE HCL 20 MG TABLET PO SCH ×3 (07:36→17:36)
[2018-03-03 07:45] LABS: BLOOD UREA NITROGEN 16 mg/dL (7-20); CALCIUM 8.3 mg/dL (8.4-10.2); GLUCOSE 87 mg/dL (75-110)
[2018-03-03 07:46] LABS: ANION GAP 6 (5-19); CARBON DIOXIDE 23 mmol/L (22-30); CHLORIDE 110 mmol/L (98-107); POTASSIUM 4.8 mmol/L (3.6-5.0); SODIUM 138.9 mmol/L (137-145)
[2018-03-03 08:22] LABS: ABSOLUTE LYMPHOCYTES# (MANUAL) 0.9 10^3/uL (0.5-4.7); ABSOLUTE MONOCYTES # (MANUAL) 0.2 10^3/uL (0.1-1.4); ABSOLUTE NEUTROPHILS# (MANUAL) 0.5 10^3/uL (1.7-8.2); ANISOCYTOSIS SLIGHT; BAND NEUTROPHILS % (MANUAL) 1 % (3-5); BASOPHILS % (MANUAL) 0 % (0-2); EOSINOPHILS % (MANUAL) 0 % (0-6); HYPOCHROMASIA SLIGHT; LYMPHOCYTES % (MANUAL) 50 % (13-45); MONOCYTES % (MANUAL) 14 % (3-13); OVALOCYTES 2+; PLATELET COMMENT DECREASED; POIKILOCYTOSIS 2+; POLYCHROMASIA SLIGHT; SEGMENTED NEUTROPHILS % (MAN) 31 % (42-78); TEAR DROP CELLS SLIGHT; TOTAL CELLS COUNTED 100
--- NOTE | 2018-03-03 09:02 | ST Inp Modified Barium Swallow ---
Medical Diagnosis - Medical Diagnoses Medical Diagnosis Description & ICD-10 Code(s): syncope, fever, dysphagia R13.10 ST Inpatient [facility] [place] - General Date: 03/03/18 Date of Onset: 03/02/18 - date of order - History History Obtained From: Other -: Medical - Per EMR: patient was admitted 02/28/18 due to syncope episode with fall. Prior medical history includes hypertension, hyperlipidemia, diabetes, coronary disease. Recent chest CT was clear, patient reports episodic coughing when swallowing. Patient reports taking a reflux medication, states that she feels foods like meats "get stuck, don't want to behave". Medications: Medications Reviewed Allergies: Refer to medical record - Subjective Current Nutritional Means: PO Current PO Diet: Regular Current Symptoms: Coughing, c/o Globus sensation Pain: Patient reports, 4/5 - head pain, no overt distress seen - Objective Assessment: Upright, Left Lateral - Food Trials Food Trials Used: Thin liquids, Pureed, Regular The Patient: Was Able to Self Feed - Assessment Labial Function: Within Normal Limits Lingual Function: Within Normal Limits Mandibular Function: Within Normal Limits Dentition: Partial Laryngeal Function: clear voicing - Pharyngeal Stage Initiation of Pharyngeal Stage: Normal Decreased Laryngeal Elevation: No Reduced Velo-Pharyngeal Closure: no Reduced Pressure Generation: No Reduced Tongue Base Retraction: No Pre-Swallowing Pooling in Valleculae: None Pre-Swallowing Pooling in Pyriforms: None Reduced Thyro-Hyiod Approximation: No Reduced Epiglottic Excursion: No Reduced Pharyngeal Peristalsis: No Post Swallow Residuals in Valleculae: None Post Swallow Residuals in Pyriforms: None - Esophageal Stage Upper Esophageal Transit: Impaired Esophageal Stasis/Dysmotility: Yes Cervical Osteophytes Noted: Yes - C6-7 Esophageal Stage Comments: At level of approximately C6-7, osteophytes seen, as well as soft tissue variance. Tissue from posterior wall protruded, causing restriction of movement of material through upper esophageal sphincter. Some retrograde movement of material seen in upper esophagus. Gag/cough response seen when this happened. Possible early Zenker's diverticulum forming. - Impression/Summary Laryngeal Penetration: No Tracheal Aspiration: no Patient Presents With: Esophageal stage dysph. - May benefit from gastroenterology consult due to nature of swallowing deficits. Risk of Aspiration: Minimal - Recommendations Solid Diet Recommendations: Regular Liquid Diet Recommendations: Thin Dysphagia Therapy with PATIENT OMBUDSPERSON: No - Time Total Time: 25 Total Timed Minutes: 25
[2018-03-03] MEDS: DOCUSATE SODIUM 100 MG CAPSULE PO SCH ×2 (09:44→17:36)
[2018-03-03] MEDS: AZITHROMYCIN 500 MG in DEXTROSE 5%-WATER 250 ML IV SCH (09:45)
[2018-03-03] MEDS: POLYETHYLENE GLYCOL 3350 POWDER 17 GM/1 PACKET PO SCH (09:46)
[2018-03-03] MEDS: ACETAMINOPHEN 325 MG TABLET PO PRN (09:46)
[2018-03-03] MEDS: ENOXAPARIN SODIUM INJ 40 MG/0.4 ML DISP.SYRIN SUBCUT SCH (09:46)
[2018-03-03] MEDS: LOSARTAN POTASSIUM 50 MG TABLET PO SCH (09:46)
[2018-03-03] MEDS: METOPROLOL TARTRATE 25 MG TABLET PO SCH ×2 (09:47→21:40)
[2018-03-03] MEDS: FAMOTIDINE 20 MG TABLET PO SCH ×2 (09:48→17:36)
[2018-03-03] MEDS: RANOLAZINE 500 MG TAB.SR.12H PO SCH ×2 (09:48→21:39)
[2018-03-03] MEDS: CLOPIDOGREL BISULFATE 75 MG TABLET PO SCH (09:48)
[2018-03-03] MEDS: AMLODIPINE BESYLATE 2.5 MG TABLET PO SCH ×2 (09:58→21:40)
--- NOTE | 2018-03-03 11:10 | PDOC PROGRESS REPORT ---
Subjective Progress Note for:: 03/03/18 Subjective:: Patient states that she is tired of feeling terrible. She is not sure what is going on, but she is very tired and scared. She is tearful today. Reason For Visit: SYNCOPAL EPISODE,UTI Physical Exam Vital Signs: Temp Pulse Resp BP Pulse Ox 98.5 F 55 L 11 L 164/64 H 97 03/03/18 07:37 03/03/18 07:37 03/03/18 07:37 03/03/18 07:37 03/03/18 07:37 Intake & Output 03/02/18 03/03/18 03/04/18 06:59 06:59 06:59 Intake Total 2420 1690 Output Total 2900 1500 Balance -480 190 Weight 103.4 kg 104.7 kg General appearance: PRESENT: obese Head exam: PRESENT: normocephalic Respiratory exam: PRESENT: unlabored Neurological exam: PRESENT: alert, awake, oriented to person, oriented to place, oriented to time, oriented to situation Psychiatric exam: PRESENT: appropriate affect Skin exam: PRESENT: normal color Results Laboratory Results: 03/03/18 06:19 03/03/18 06:19 03/03/18 03/03/18 06:19 06:19 WBC 1.6 L RBC 3.96 Hgb 10.6 L Hct 32.7 L MCV 83 MCH 26.6 L MCHC 32.3 RDW 15.9 H Plt Count 127 L Seg Neutrophils % Not Reportable Lymphocytes % Not Reportable Monocytes % Not Reportable Eosinophils % Not Reportable Basophils % Not Reportable Absolute Neutrophils Not Reportable Absolute Lymphocytes Not Reportable Absolute Monocytes Not Reportable Absolute Eosinophils Not Reportable Absolute Basophils Not Reportable Sodium 138.9 Potassium 4.8 Chloride 110 H Carbon Dioxide 23 Anion Gap 6 BUN 16 Creatinine 1.29 H Est GFR ( Amer) 49 L Est GFR (Non-Af Amer) 41 L Glucose 87 Calcium 8.3 L 02/28/18 03:05 Clean Catch Midstream Urine Culture - Final Urogenital Breanne 02/27/18 02/27/18 02/28/18 18:47 18:47 01:16 Creatine Kinase 134 128 CK-MB (CK-2) 0.55 Troponin I 0.014 02/28/18 02/28/18 02/28/18 01:16 07:17 07:17 Creatine Kinase 113 CK-MB (CK-2) 0.56 0.27 Troponin I < 0.012 < 0.012 02/28/18 02/28/18 13:16 13:16 Creatine Kinase 128 CK-MB (CK-2) 0.37 Troponin I < 0.012 Impressions: Knee X-Ray 02/27/18 17:20 IMPRESSION: No fracture or dislocation of the left knee status post total knee arthroplasty. Shoulder X-Ray 02/27/18 17:20 IMPRESSION: CHRONIC CHANGES. NO RADIOGRAPHIC EVIDENCE OF ACUTE INJURY. Head CT 02/27/18 19:27 IMPRESSION: No acute intracranial findings. Chest CT 02/28/18 00:00 IMPRESSION: NO SIGNIFICANT FINDING ON NON-CONTRASTED CHEST CT. Chest X-Ray 03/02/18 00:00 IMPRESSION: 1. No significant interval changes since the prior examination dated 02/27/2018. No acute findings. Assessment & Plan - Diagnosis (1) Pancytopenia Is this a current diagnosis for this admission?: Yes Plan: Her blood counts continue to decrease. We discussed options of watching this to see if this is due to infection or medications, or going ahead with bone marrow biopsy. She agrees to bone marrow biopsy in the morning. I will arrange. I believe this will need to be performed in interventional radiology, due to patient's size. (2) Syncope Qualifiers: Qualified Code(s): R55 - Syncope and collapse Is this a current diagnosis for this admission?: Yes (3) Fever Qualifiers: Qualified Code(s): R50.9 - Fever, unspecified Is this a current diagnosis for this admission?: Yes - Plan Summary Plan Summary: Further work-up for cause of her symptoms is in progress. I will continue to follow her with you.
--- NOTE | 2018-03-03 12:57 | PDOC PROGRESS REPORT ---
Subjective Progress Note for:: 03/03/18 Subjective:: Patient is currently doing fair No fever overnight Patient's denied any chest pain denied any shortness of the breath Patient still have a cough Patient had a modified barium swallow was done today which shows some zenker l diverticulum as per Dr. Veras will look at the patient in follow-up after that Patient's white count is still low and platelet count is still low as per oncology notes patient scheduled the bone marrow biopsy tomorrow Reason For Visit: SYNCOPAL EPISODE,UTI Physical Exam Vital Signs: Temp Pulse Resp BP Pulse Ox 98.1 F 60 16 138/75 H 98 03/03/18 11:43 03/03/18 11:43 03/03/18 11:43 03/03/18 11:43 03/03/18 11:43 Intake & Output 03/02/18 03/03/18 03/04/18 06:59 06:59 06:59 Intake Total 2420 1690 Output Total 2900 1500 Balance -480 190 Weight 103.4 kg 104.7 kg General appearance: PRESENT: no acute distress, well-developed, well-nourished Head exam: PRESENT: atraumatic, normocephalic Eye exam: PRESENT: conjunctiva pink, EOMI, PERRLA. ABSENT: scleral icterus Ear exam: PRESENT: normal external ear exam Mouth exam: PRESENT: moist, tongue midline Neck exam: PRESENT: full ROM. ABSENT: carotid bruit, JVD, lymphadenopathy, thyromegaly Respiratory exam: PRESENT: clear to auscultation radha Cardiovascular exam: PRESENT: RRR. ABSENT: diastolic murmur, rubs, systolic murmur Vascular exam: PRESENT: normal capillary refill GI/Abdominal exam: PRESENT: normal bowel sounds, soft. ABSENT: distended, guarding, mass, organolmegaly, rebound, tenderness Rectal exam: PRESENT: deferred Musculoskeletal exam: PRESENT: ambulatory Neurological exam: PRESENT: alert, awake, oriented to person, oriented to place, oriented to time, oriented to situation, CN II-XII grossly intact. ABSENT: motor sensory deficit Psychiatric exam: PRESENT: appropriate affect, normal mood. ABSENT: homicidal ideation, suicidal ideation Skin exam: PRESENT: dry, intact, warm. ABSENT: cyanosis, rash Results Laboratory Results: 03/03/18 06:19 03/03/18 06:19 03/03/18 03/03/18 06:19 06:19 WBC 1.6 L RBC 3.96 Hgb 10.6 L Hct 32.7 L MCV 83 MCH 26.6 L MCHC 32.3 RDW 15.9 H Plt Count 127 L Seg Neutrophils % Not Reportable Lymphocytes % Not Reportable Monocytes % Not Reportable Eosinophils % Not Reportable Basophils % Not Reportable Absolute Neutrophils Not Reportable Absolute Lymphocytes Not Reportable Absolute Monocytes Not Reportable Absolute Eosinophils Not Reportable Absolute Basophils Not Reportable Sodium 138.9 Potassium 4.8 Chloride 110 H Carbon Dioxide 23 Anion Gap 6 BUN 16 Creatinine 1.29 H Est GFR ( Amer) 49 L Est GFR (Non-Af Amer) 41 L Glucose 87 Calcium 8.3 L 02/28/18 03:05 Clean Catch Midstream Urine Culture - Final Urogenital Breanne 02/27/18 02/27/18 02/28/18 18:47 18:47 01:16 Creatine Kinase 134 128 CK-MB (CK-2) 0.55 Troponin I 0.014 02/28/18 02/28/18 02/28/18 01:16 07:17 07:17 Creatine Kinase 113 CK-MB (CK-2) 0.56 0.27 Troponin I < 0.012 < 0.012 02/28/18 02/28/18 13:16 13:16 Creatine Kinase 128 CK-MB (CK-2) 0.37 Troponin I < 0.012 Impressions: Knee X-Ray 02/27/18 17:20 IMPRESSION: No fracture or dislocation of the left knee status post total knee arthroplasty. Shoulder X-Ray 02/27/18 17:20 IMPRESSION: CHRONIC CHANGES. NO RADIOGRAPHIC EVIDENCE OF ACUTE INJURY. Head CT 02/27/18 19:27 IMPRESSION: No acute intracranial findings. Chest CT 02/28/18 00:00 IMPRESSION: NO SIGNIFICANT FINDING ON NON-CONTRASTED CHEST CT. Chest X-Ray 03/02/18 00:00 IMPRESSION: 1. No significant interval changes since the prior examination dated 02/27/2018. No acute findings. Assessment & Plan - Diagnosis (1) Syncope Qualifiers: Syncope type: unspecified Qualified Code(s): R55 - Syncope and collapse Is this a current diagnosis for this admission?: Yes Plan: Currently all stable we will get the MRI of the head (2) Fever Qualifiers: Fever type: unspecified Qualified Code(s): R50.9 - Fever, unspecified Is this a current diagnosis for this admission?: Yes Plan: Currently all resolved (3) UTI (urinary tract infection) Qualifiers: Urinary tract infection type: site unspecified Hematuria presence: without hematuria Qualified Code(s): N39.0 - Urinary tract infection, site not specified Is this a current diagnosis for this admission?: Yes Plan: Culture is all negative (4) Diabetes mellitus Qualifiers: Diabetes mellitus type: type 2 Diabetes mellitus terminal computer operator insulin use: without terminal computer operator use Diabetes mellitus complication status: with unspecified complications Qualified Code(s): E11.8 - Type 2 diabetes mellitus with unspecified complications Is this a current diagnosis for this admission?: Yes Plan: Is pretty much diet control (5) CAD S/P percutaneous coronary angioplasty Is this a current diagnosis for this admission?: Yes Plan: We will consult the cardiology rule out the acute coronary syndromes (6) HLD (hyperlipidemia) Qualifiers: Hyperlipidemia type: unspecified Qualified Code(s): E78.5 - Hyperlipidemia, unspecified Is this a current diagnosis for this admission?: Yes Plan: Tinge to current medications (7) HTN (hypertension) Is this a current diagnosis for this admission?: Yes (8) Irritable bowel syndrome Qualifiers: Irritable bowel syndrome type: unspecified Qualified Code(s): K58.9 - Irritable bowel syndrome without diarrhea Is this a current diagnosis for this admission?: Yes Plan: Continue Bentyl (9) Left knee pain Qualifiers: Chronicity: acute Qualified Code(s): M25.562 - Pain in left knee Is this a current diagnosis for this admission?: Yes (10) Pancytopenia Is this a current diagnosis for this admission?: Yes Plan: Follow with oncology (11) Cough Is this a current diagnosis for this admission?: Yes Plan: Modified barium swallow suggest patients may require an endoscopy consult with Dr. Veras - Time Time Spent with patient: 15-24 minutes Medications reviewed and adjusted accordingly: Yes Anticipated discharge: Home Within: Other - Plan Summary Plan Summary: Continues to current medications We will get the MRI of the head GI consult Continues to ambulate with the patient with the physical therapy
--- NOTE | 2018-03-03 13:03 | RADIOLOGY REPORT (SQ) ---
EXAM DESCRIPTION: MAT SWALLOW COMPLETED DATE/TIME: 03/03/2018 9:06 am REASON FOR STUDY: chocking globus sensation coughing with meals COMPARISON: None. TECHNIQUE: Videofluoroscopic swallowing examination was performed in conjunction with speech patholo gy. Videofluoroscopic imaging was obtained and reviewed and these are the findings: RADIATION DOSE: 1 minutes 48 seconds of fluoroscopy was used. 1 images saved to PACS. LIMITATIONS: None FINDINGS: The patient was brought into the fluoro room and placed upright on a modified barium swall ow chair. The patient was then given multiple consistencies mixed with barium to swallow under live fluoroscopic video guidance. According to the Speech Pathologist there was no penetration or aspirat ion. Mild cricopharyngeal hypertrophy and early Zenker's diverticulum noted. IMPRESSION: NO EVIDENCE OF PENETRATION OR ASPIRATIONPLEASE SEE SPEECH PATHOLOGIST REPORT FOR OTHER F INDINGS AND RECOMMENDATIONS. COMMENT: Quality ID [id number]: Final reports for procedures using fluoroscopy that document radiation exp osure indices, or exposure time and number of fluorographic images (if radiation exposure indices are not available) TECHNICAL DOCUMENTATION: JOB ID: [id number] [employer]- All Rights Reserved Reading location - IP/workstation name: [email or web address]
--- NOTE | 2018-03-03 16:45 | RADIOLOGY REPORT (SQ) ---
EXAM DESCRIPTION: MRI HEAD WITHOUT COMPLETED DATE/TIME: 03/03/2018 3:54 pm REASON FOR STUDY: syncoapl episode COMPARISON: 04/23/2013 TECHNIQUE: Multiplanar imaging includes non-contrasted T1, T2, FLAIR, and diffusion with ADC map seq uences. Images stored on PACS. LIMITATIONS: None. FINDINGS: ANATOMY: No anomalies. Normal vascular flow voids. Pituitary fossa normal. CSF SPACES: Normal in size and contour. No hemorrhage. CEREBRUM: Sulci and gyri normal in size and contour. Mild scattered areas periventricular and subcor tical T2 signal prolongation, nonspecific but likely sequelae of microangiopathic disease. No eviden ce of hemorrhage, mass, or extraaxial fluid collection. POSTERIOR FOSSA: No signal alteration. No hemorrhage. No edema, masses or mass effect. Internal valarie tory canals, cerebello-pontine angles, mastoids normal. DIFFUSION IMAGING: Negative for acute or sub-acute infarction. ORBITS: No masses. Globes normal. PARANASAL SINUSES: Mild mucosal thickening and fluid within the bilateral maxillary sinuses. Remain ing sinuses are well aerated. OTHER: No other significant finding. IMPRESSION: No evidence of acute infarct or other acute intracranial process. Minimal nonspecific white matter changes, likely sequelae of microangiopathic disease. Maxillary sinus mucosal disease. EVIDENCE OF ACUTE STROKE: NO. TECHNICAL DOCUMENTATION: JOB ID: [id number]- All Rights Reserved Reading location - IP/workstation name: [email or web address]
[2018-03-03] MEDS: CETIRIZINE 5 MG TABLET PO SCH (17:36)
--- NOTE | 2018-03-03 19:17 | PDOC CONSULTATION ---
Consultation Consult Date: 03/03/18 History of Present Illness Admission Date/PCP: 02/27/18 21:38 RYDER HERNANDEZ MD History of Present Illness: ELISABETH SUNG is a 72 year old femalePatient who was admitted on 02/27/2018 with a fall. Consultation was requested for dysphagia and an abnormal barium swallow. She has been having dysphagia off-and-on for the last couple of months. This is in the oropharynx and is mostly for solid foods like meats. She does have to bring the food back up occasionally. She has no problems with liquids with pills. Her barium swallow showed mild cricopharyngeal hypertrophy with early Zenker's diverticulum. Past Medical History Cardiac Medical History: Reports: Coronary Artery Disease, Myocardial Infarction - x 4, Hyperlipidema, Hypertension Pulmonary Medical History: Reports: Bronchitis, Pneumonia, Sleep Apnea Denies: Asthma, Chronic Obstructive Pulmonary Disease (COPD), Tuberculosis Neurological Medical History: Denies: Hemorrhagic CVA, Ischemic CVA, Multiple Sclerosis, Seizures Endocrine Medical History: Reports: Diabetes Mellitus Type 1, Diabetes Mellitus Type 2 - diet controlled Renal/ Medical History: Reports: Chronic Kidney Disease Denies: Nephrolithiasis GI Medical History: Reports: Gastroesophageal Reflux Disease Musculoskeltal Medical History: Reports: Arthritis Psychiatric Medical History: Reports: Depression Hematology: Reports: Anemia Infectious Medical History: Denies: HIV Past Surgical History Past Surgical History: Reports: Appendectomy, Cardiac Catheterization, Coronary Stent, Hysterectomy, Orthopedic Surgery - Bilateral total knee replacements. Bilateral shoulder surgeries., Tonsillectomy Social History Lives with: Alone Smoking Status: Never Smoker Frequency of Alcohol Use: None Hx Recreational Drug Use: No Drugs: None Hx Prescription Drug Abuse: No Family History Family History: CAD, Hypertension, Malignancy Parental Family History Reviewed: No Children Family History Reviewed: NA Sibling(s) Family History Reviewed.: NA Medication/Allergy Home Medications: Atorvastatin Calcium [Lipitor 20 mg Tablet] 20 mg PO QHS 02/28/18 Benazepril HCl [Lotensin] 40 mg PO DAILY 02/28/18 Clopidogrel Bisulfate [Plavix 75 mg Tablet] 75 mg PO DAILY 02/28/18 Dicyclomine HCl [Bentyl 20 mg Tablet] 20 mg PO TID 02/28/18 Levocetirizine Dihydrochloride [Xyzal] 5 mg PO QPM 02/28/18 Metoprolol Tartrate [Lopressor 25 mg Tablet] 25 mg PO Q12 02/28/18 Polyethylene Glycol 3350 [Miralax Powder 17 gm/Packet] 1 packet PO DAILY 02/28/18 Ranolazine [Ranexa 500 mg Tab.sr] 500 mg PO Q12 02/28/18 Allergies/Adverse Reactions: betamethasone [Betamethasone] Allergy (Intermediate, Verified 02/27/18 15:09) burning skin ceftriaxone sodium [From Rocephin] Allergy (Intermediate, Verified 02/27/18 15:09) Urticaria ciprofloxacin [From Cipro] Allergy (Intermediate, Verified 02/27/18 15:09) Urticaria clindamycin [Clindamycin] Allergy (Intermediate, Verified 02/27/18 15:09) Urticaria clotrimazole [Clotrimazole] Allergy (Intermediate, Verified 02/27/18 15:09) burning skin diphenhydramine HCl [From Benadryl] Allergy (Intermediate, Verified 02/27/18 15:09) Urticaria doxycycline [Doxycycline] Allergy (Intermediate, Verified 02/27/18 15:09) Urticaria latex [Latex] Allergy (Intermediate, Verified 02/27/18 15:09) Urticaria metronidazole [From Flagyl] Allergy (Intermediate, Verified 02/27/18 15:09) Urticaria oxycodone [Oxycodone] Allergy (Intermediate, Verified 02/27/18 15:09) Penicillins Allergy (Intermediate, Verified 02/27/18 15:09) Urticaria Sulfa (Sulfonamide Antibiotics) Allergy (Intermediate, Verified 02/27/18 15:09) Urticaria acetaminophen [From Vicodin] Allergy (Verified 02/27/18 15:09) hydrocodone bitartrate [From Vicodin] Allergy (Verified 02/27/18 15:09) mupirocin [From Bactroban] Allergy (Verified 02/27/18 15:09) aspirin [Aspirin] Adverse Reaction (Mild, Verified 02/27/18 15:09) Nausea PAPER TAPE Allergy (Uncoded 02/27/18 15:09) Blisters Review of Systems All systems: reviewed and no additional remarkable complaints except as stated Physical Exam Vital Signs: Temp Pulse Resp BP Pulse Ox 98.1 F 60 16 138/75 H 98 03/03/18 11:43 03/03/18 11:43 03/03/18 11:43 03/03/18 11:43 03/03/18 11:43 Intake & Output 03/02/18 03/03/18 03/04/18 06:59 06:59 06:59 Intake Total 2420 1690 250 Output Total 2900 1500 Balance -480 190 250 Weight 103.4 kg 104.7 kg Exam: General: Patient is alert and looks well. She is obese HEENT: There is no pallor or jaundice. PERRLA. Oropharynx normal Respiratory: No chest deformity. No respiratory distress. Chest wall palpitation was unremarkable. Breath sounds were normal Cardiovascular: Heart sounds 1 and 2 normal with no murmurs. Abdominal: Not distended. Soft and nontender. Liver and spleen not palpable. No ascites demonstrated. Bowel sounds active. Rectal examination was deferred. Extremities: No edema Neurological: Alert and oriented x4. Grossly nonfocal. Normal speech Skin: No significant rash Psychological: Normal affect Results Laboratory Results: 03/03/18 06:19 03/03/18 06:19 03/03/18 03/03/18 06:19 06:19 WBC 1.6 L RBC 3.96 Hgb 10.6 L Hct 32.7 L MCV 83 MCH 26.6 L MCHC 32.3 RDW 15.9 H Plt Count 127 L Seg Neutrophils % Not Reportable Lymphocytes % Not Reportable Monocytes % Not Reportable Eosinophils % Not Reportable Basophils % Not Reportable Absolute Neutrophils Not Reportable Absolute Lymphocytes Not Reportable Absolute Monocytes Not Reportable Absolute Eosinophils Not Reportable Absolute Basophils Not Reportable Sodium 138.9 Potassium 4.8 Chloride 110 H Carbon Dioxide 23 Anion Gap 6 BUN 16 Creatinine 1.29 H Est GFR ( Amer) 49 L Est GFR (Non-Af Amer) 41 L Glucose 87 Calcium 8.3 L 02/28/18 03:05 Clean Catch Midstream Urine Culture - Final Urogenital Breanne 02/27/18 02/27/18 02/28/18 18:47 18:47 01:16 Creatine Kinase 134 128 CK-MB (CK-2) 0.55 Troponin I 0.014 02/28/18 02/28/18 02/28/18 01:16 07:17 07:17 Creatine Kinase 113 CK-MB (CK-2) 0.56 0.27 Troponin I < 0.012 < 0.012 02/28/18 02/28/18 13:16 13:16 Creatine Kinase 128 CK-MB (CK-2) 0.37 Troponin I < 0.012 Impressions: Knee X-Ray 02/27/18 17:20 IMPRESSION: No fracture or dislocation of the left knee status post total knee arthroplasty. Shoulder X-Ray 02/27/18 17:20 IMPRESSION: CHRONIC CHANGES. NO RADIOGRAPHIC EVIDENCE OF ACUTE INJURY. Head CT 02/27/18 19:27 IMPRESSION: No acute intracranial findings. Chest CT 02/28/18 00:00 IMPRESSION: NO SIGNIFICANT FINDING ON NON-CONTRASTED CHEST CT. Chest X-Ray 03/02/18 00:00 IMPRESSION: 1. No significant interval changes since the prior examination dated 02/27/2018. No acute findings. Head MRI 03/03/18 00:00 IMPRESSION: No evidence of acute infarct or other acute intracranial process. Minimal nonspecific white matter changes, likely sequelae of microangiopathic disease. Maxillary sinus mucosal disease. EVIDENCE OF ACUTE STROKE: NO. Modified Barium Swallow 03/03/18 00:00 IMPRESSION: NO EVIDENCE OF PENETRATION OR ASPIRATIONPLEASE SEE SPEECH PATHOLOGIST REPORT FOR OTHER FINDINGS AND RECOMMENDATIONS. Assessment & Plan - Diagnosis (1) Dysphagia Qualifiers: Dysphagia type: pharyngoesophageal phase Qualified Code(s): R13.14 - Dysphagia, pharyngoesophageal phase Is this a current diagnosis for this admission?: Yes Plan: She has a chronic history of recurrent dysphagia for solid foods likely related to cricopharyngeal hypertrophy. She has early Zenker's diverticulum which I doubt has any clinical significance at this time. She does require an EGD to rule out other upper esophageal pathology and this could be performed as outpatient. She was advised to watch her bite-size and to take her time with the eating. (2) Abnormal finding on GI tract imaging Is this a current diagnosis for this admission?: Yes (3) Zenker's (hypopharyngeal) diverticulum Is this a current diagnosis for this admission?: Yes
[2018-03-03] MEDS: ATORVASTATIN CALCIUM 20 MG TABLET PO SCH (21:39)
[2018-03-04] MEDS: BENZONATATE 100 MG CAPSULE PO SCH ×3 (05:41→22:32)
[2018-03-04 07:24] LABS: BLOOD UREA NITROGEN 18 mg/dL (7-20); CALCIUM 8.9 mg/dL (8.4-10.2); CARBON DIOXIDE 27 mmol/L (22-30); CHLORIDE 108 mmol/L (98-107); GLUCOSE 94 mg/dL (75-110); POTASSIUM 4.7 mmol/L (3.6-5.0); SODIUM 137.4 mmol/L (137-145)
[2018-03-04 07:30] LABS: ANION GAP 2 (5-19); HEMATOCRIT 33.8 % (36.0-47.0); HEMOGLOBIN 11.1 g/dL (12.0-15.5); MEAN CORPUSCULAR HEMOGLOBIN 26.1 pg (27.0-33.4); MEAN CORPUSCULAR HGB CONC 32.9 g/dL (32.0-36.0); PLATELET COUNT 129 10^3/uL (150-450); RED BLOOD COUNT 4.26 10^6/uL (3.72-5.28); RED CELL DISTRIBUTION WIDTH 15.3 % (11.5-14.0)
[2018-03-04 08:22] LABS: MEAN CORPUSCULAR VOLUME 79 fl (80-97)
[2018-03-04] MEDS: DICYCLOMINE HCL 20 MG TABLET PO SCH ×3 (08:22→16:02)
[2018-03-04 08:39] LABS: ABSOLUTE LYMPHOCYTES# (MANUAL) 0.8 10^3/uL (0.5-4.7); ABSOLUTE MONOCYTES # (MANUAL) 0.2 10^3/uL (0.1-1.4); ABSOLUTE NEUTROPHILS# (MANUAL) 0.4 10^3/uL (1.7-8.2); BAND NEUTROPHILS % (MANUAL) 3 % (3-5); BASOPHILS % (MANUAL) 0 % (0-2); EOSINOPHILS % (MANUAL) 2 % (0-6); LYMPHOCYTES % (MANUAL) 55 % (13-45); MONOCYTES % (MANUAL) 13 % (3-13); OVALOCYTES SLIGHT; POIKILOCYTOSIS SLIGHT; POLYCHROMASIA SLIGHT; SEGMENTED NEUTROPHILS % (MAN) 24 % (42-78); TOTAL CELLS COUNTED 100; TOXIC GRANULATION SLIGHT; TOXIC VACUOLATION PRESENT
[2018-03-04 08:41] LABS: WHITE BLOOD COUNT 1.4 10^3/uL (4.0-10.5)
--- NOTE | 2018-03-04 08:52 | PDOC PROGRESS REPORT ---
Subjective Progress Note for:: 03/04/18 Subjective:: Patient states she is feeling about the same. She slept well. Nurses report no new issues. Reason For Visit: SYNCOPAL EPISODE,UTI Physical Exam Vital Signs: Temp Pulse Resp BP Pulse Ox 97.9 F 55 L 13 137/84 H 97 03/04/18 07:47 03/04/18 07:47 03/04/18 07:47 03/04/18 07:47 03/04/18 07:47 Intake & Output 03/03/18 03/04/18 03/05/18 06:59 06:59 06:59 Intake Total 1690 745 Output Total 1500 1800 Balance 190 -1055 Weight 104.7 kg 110.7 kg General appearance: PRESENT: no acute distress, obese Exam: 72 year old [place] female. She is wearing her CPAP currently. Head exam: PRESENT: normocephalic Respiratory exam: PRESENT: clear to auscultation radha, unlabored Cardiovascular exam: PRESENT: other - heart sounds obscured. GI/Abdominal exam: PRESENT: soft. ABSENT: tenderness Neurological exam: PRESENT: alert, awake Psychiatric exam: PRESENT: appropriate affect Skin exam: PRESENT: normal color Results Laboratory Results: 03/04/18 06:23 03/04/18 06:23 03/04/18 03/04/18 06:23 06:23 WBC 1.4 L* RBC 4.26 Hgb 11.1 L Hct 33.8 L MCV 79 L D MCH 26.1 L MCHC 32.9 RDW 15.3 H Plt Count 129 L Seg Neutrophils % Not Reportable Lymphocytes % Not Reportable Monocytes % Not Reportable Eosinophils % Not Reportable Basophils % Not Reportable Absolute Neutrophils Not Reportable Absolute Lymphocytes Not Reportable Absolute Monocytes Not Reportable Absolute Eosinophils Not Reportable Absolute Basophils Not Reportable Sodium 137.4 Potassium 4.7 Chloride 108 H Carbon Dioxide 27 Anion Gap 2 L BUN 18 Creatinine 1.24 Est GFR ( Amer) 52 L Est GFR (Non-Af Amer) 43 L Glucose 94 Calcium 8.9 02/27/18 02/27/18 02/28/18 18:47 18:47 01:16 Creatine Kinase 134 128 CK-MB (CK-2) 0.55 Troponin I 0.014 02/28/18 02/28/18 02/28/18 01:16 07:17 07:17 Creatine Kinase 113 CK-MB (CK-2) 0.56 0.27 Troponin I < 0.012 < 0.012 02/28/18 02/28/18 13:16 13:16 Creatine Kinase 128 CK-MB (CK-2) 0.37 Troponin I < 0.012 Impressions: Knee X-Ray 02/27/18 17:20 IMPRESSION: No fracture or dislocation of the left knee status post total knee arthroplasty. Shoulder X-Ray 02/27/18 17:20 IMPRESSION: CHRONIC CHANGES. NO RADIOGRAPHIC EVIDENCE OF ACUTE INJURY. Head CT 02/27/18 19:27 IMPRESSION: No acute intracranial findings. Chest CT 02/28/18 00:00 IMPRESSION: NO SIGNIFICANT FINDING ON NON-CONTRASTED CHEST CT. Chest X-Ray 03/02/18 00:00 IMPRESSION: 1. No significant interval changes since the prior examination dated 02/27/2018. No acute findings. Head MRI 03/03/18 00:00 IMPRESSION: No evidence of acute infarct or other acute intracranial process. Minimal nonspecific white matter changes, likely sequelae of microangiopathic disease. Maxillary sinus mucosal disease. EVIDENCE OF ACUTE STROKE: NO. Modified Barium Swallow 03/03/18 00:00 IMPRESSION: NO EVIDENCE OF PENETRATION OR ASPIRATIONPLEASE SEE SPEECH PATHOLOGIST REPORT FOR OTHER FINDINGS AND RECOMMENDATIONS. Assessment & Plan - Diagnosis (1) Pancytopenia Is this a current diagnosis for this admission?: Yes Plan: progressive. I believe she need bone marrow biopsy with interventional radiology. However, I was told yesterday that patient would need to be discharge before this would be possible. With her pancytopenia, she is not stable for discharge. I have discussed this with Dr. Bender. I will continue to monitor CBC daily. Watch for fever. Neutropenic precautions. (2) Syncope Qualifiers: Syncope type: unspecified Qualified Code(s): R55 - Syncope and collapse Is this a current diagnosis for this admission?: Yes (3) Fever Qualifiers: Fever type: unspecified Qualified Code(s): R50.9 - Fever, unspecified Is this a current diagnosis for this admission?: Yes Plan: Continue current antibiotics, as appropriate.
[2018-03-04 08:53] LABS: PLATELET COMMENT DECREASED
[2018-03-04] MEDS: LOSARTAN POTASSIUM 50 MG TABLET PO SCH (10:57)
[2018-03-04] MEDS: AZITHROMYCIN 500 MG in DEXTROSE 5%-WATER 250 ML IV SCH (10:57)
[2018-03-04] MEDS: RANOLAZINE 500 MG TAB.SR.12H PO SCH ×2 (10:57→22:32)
[2018-03-04] MEDS: AMLODIPINE BESYLATE 2.5 MG TABLET PO SCH ×2 (10:58→22:32)
[2018-03-04] MEDS: METOPROLOL TARTRATE 25 MG TABLET PO SCH ×2 (10:58→22:32)
[2018-03-04] MEDS: DOCUSATE SODIUM 100 MG CAPSULE PO SCH ×2 (10:58→17:39)
[2018-03-04] MEDS: CLOPIDOGREL BISULFATE 75 MG TABLET PO SCH (10:58)
[2018-03-04] MEDS: FAMOTIDINE 20 MG TABLET PO SCH ×2 (10:58→17:38)
[2018-03-04] MEDS: FLUTICASONE NASAL SPRAY 50 MCG/SPRY 120 SPRAY/16 GM NASL SCH ×2 (11:05→17:39)
[2018-03-04 12:02] LABS: HEMATOCRIT 36.6 % (36.0-47.0); HEMOGLOBIN 11.9 g/dL (12.0-15.5); MEAN CORPUSCULAR HEMOGLOBIN 25.3 pg (27.0-33.4); MEAN CORPUSCULAR HGB CONC 32.6 g/dL (32.0-36.0); MEAN CORPUSCULAR VOLUME 78 fl (80-97); PLATELET COUNT 150 10^3/uL (150-450); RED BLOOD COUNT 4.71 10^6/uL (3.72-5.28); RED CELL DISTRIBUTION WIDTH 15.9 % (11.5-14.0); WHITE BLOOD COUNT 1.9 10^3/uL (4.0-10.5)
[2018-03-04 12:16] LABS: ABSOLUTE LYMPHOCYTES# (MANUAL) 1.1 10^3/uL (0.5-4.7); ABSOLUTE MONOCYTES # (MANUAL) 0.2 10^3/uL (0.1-1.4); BAND NEUTROPHILS % (MANUAL) 1 % (3-5); BASOPHILS % (MANUAL) 0 % (0-2); EOSINOPHILS % (MANUAL) 1 % (0-6); LYMPHOCYTES % (MANUAL) 55 % (13-45); MONOCYTES % (MANUAL) 8 % (3-13); TOTAL CELLS COUNTED 100
[2018-03-04 12:28] LABS: ABSOLUTE NEUTROPHILS# (MANUAL) 0.6 10^3/uL (1.7-8.2); SEGMENTED NEUTROPHILS % (MAN) 33 % (42-78)
[2018-03-04 12:29] LABS: INTERNATIONAL RATION (INR) 0.94; PARTIAL THROMBOPLASTIN TIME 32.4 SEC (23.5-35.8); PROTHROMBIN TIME 13.1 SEC (11.4-15.4)
[2018-03-04 12:30] LABS: PLATELET CLUMPS PRESENT; SPHEROCYTES 1+
[2018-03-04 12:31] LABS: POLYCHROMASIA SLIGHT
[2018-03-04 12:44] LABS: ANISOCYTOSIS SLIGHT; HYPOCHROMASIA 1+; OVALOCYTES SLIGHT; POIKILOCYTOSIS SLIGHT
--- NOTE | 2018-03-04 13:46 | PDOC PROGRESS REPORT ---
Subjective Progress Note for:: 03/04/18 Subjective:: Patient is currently doing fair Patient is denied any chest pain to than any shortness of the breath Patient still having some cough Patient MRI of the head was negative for any acute finding except some sinus disorder Patient to seen by Dr. Veras and suggest that no need for any evaluation in the hospital may be outpatient egd White count is still low and the platelet count is still low Reason For Visit: SYNCOPAL EPISODE,UTI Physical Exam Vital Signs: Temp Pulse Resp BP Pulse Ox 98.3 F 57 L 13 172/67 H 99 03/04/18 11:27 03/04/18 11:27 03/04/18 11:27 03/04/18 11:27 03/04/18 11:27 Intake & Output 03/03/18 03/04/18 03/05/18 06:59 06:59 06:59 Intake Total 1690 745 Output Total 1500 1800 Balance 190 -1055 Weight 104.7 kg 110.7 kg General appearance: PRESENT: no acute distress, well-developed, well-nourished Head exam: PRESENT: atraumatic, normocephalic Eye exam: PRESENT: conjunctiva pink, EOMI, PERRLA. ABSENT: scleral icterus Ear exam: PRESENT: normal external ear exam Mouth exam: PRESENT: moist, tongue midline Neck exam: PRESENT: full ROM. ABSENT: carotid bruit, JVD, lymphadenopathy, thyromegaly Respiratory exam: PRESENT: clear to auscultation radha Cardiovascular exam: PRESENT: RRR. ABSENT: diastolic murmur, rubs, systolic murmur Vascular exam: PRESENT: normal capillary refill GI/Abdominal exam: PRESENT: normal bowel sounds, soft. ABSENT: distended, guard ing, mass, organolmegaly, rebound, tenderness Rectal exam: PRESENT: deferred Extremities exam: ABSENT: pedal edema Musculoskeletal exam: PRESENT: ambulatory Neurological exam: PRESENT: alert, awake, oriented to person, oriented to place, oriented to time, oriented to situation, CN II-XII grossly intact. ABSENT: motor sensory deficit Psychiatric exam: PRESENT: appropriate affect, normal mood. ABSENT: homicidal ideation, suicidal ideation Skin exam: PRESENT: dry, intact, warm. ABSENT: cyanosis, rash Results Laboratory Results: 03/04/18 11:15 03/04/18 06:23 03/04/18 03/04/18 03/04/18 06:23 06:23 11:15 WBC 1.4 L* 1.9 L RBC 4.26 4.71 Hgb 11.1 L 11.9 L Hct 33.8 L 36.6 MCV 79 L D 78 L MCH 26.1 L 25.3 L MCHC 32.9 32.6 RDW 15.3 H 15.9 H Plt Count 129 L 150 Seg Neutrophils % Not Reportable Not Reportable Lymphocytes % Not Reportable Not Reportable Monocytes % Not Reportable Not Reportable Eosinophils % Not Reportable Not Reportable Basophils % Not Reportable Not Reportable Absolute Neutrophils Not Reportable Not Reportable Absolute Lymphocytes Not Reportable Not Reportable Absolute Monocytes Not Reportable Not Reportable Absolute Eosinophils Not Reportable Not Reportable Absolute Basophils Not Reportable Not Reportable Sodium 137.4 Potassium 4.7 Chloride 108 H Carbon Dioxide 27 Anion Gap 2 L BUN 18 Creatinine 1.24 Est GFR ( Amer) 52 L Est GFR (Non-Af Amer) 43 L Glucose 94 Calcium 8.9 02/27/18 02/27/18 02/28/18 18:47 18:47 01:16 Creatine Kinase 134 128 CK-MB (CK-2) 0.55 Troponin I 0.014 02/28/18 02/28/18 02/28/18 01:16 07:17 07:17 Creatine Kinase 113 CK-MB (CK-2) 0.56 0.27 Troponin I < 0.012 < 0.012 02/28/18 02/28/18 13:16 13:16 Creatine Kinase 128 CK-MB (CK-2) 0.37 Troponin I < 0.012 Impressions: Knee X-Ray 02/27/18 17:20 IMPRESSION: No fracture or dislocation of the left knee status post total knee arthroplasty. Shoulder X-Ray 02/27/18 17:20 IMPRESSION: CHRONIC CHANGES. NO RADIOGRAPHIC EVIDENCE OF ACUTE INJURY. Head CT 02/27/18 19:27 IMPRESSION: No acute intracranial findings. Chest CT 02/28/18 00:00 IMPRESSION: NO SIGNIFICANT FINDING ON NON-CONTRASTED CHEST CT. Chest X-Ray 03/02/18 00:00 IMPRESSION: 1. No significant interval changes since the prior examination dated 02/27/2018. No acute findings. Head MRI 03/03/18 00:00 IMPRESSION: No evidence of acute infarct or other acute intracranial process. Minimal nonspecific white matter changes, likely sequelae of microangiopathic disease. Maxillary sinus mucosal disease. EVIDENCE OF ACUTE STROKE: NO. Modified Barium Swallow 03/03/18 00:00 IMPRESSION: NO EVIDENCE OF PENETRATION OR ASPIRATIONPLEASE SEE SPEECH PATHOLOGIST REPORT FOR OTHER FINDINGS AND RECOMMENDATIONS. Assessment & Plan - Diagnosis (1) Syncope Qualifiers: Syncope type: unspecified Qualified Code(s): R55 - Syncope and collapse Is this a current diagnosis for this admission?: Yes Plan: All workup is negative Patient already seen the cardiology as outpatient with ongoing workup (2) Fever Qualifiers: Fever type: unspecified Qualified Code(s): R50.9 - Fever, unspecified Is this a current diagnosis for this admission?: Yes Plan: Currently all resolved (3) UTI (urinary tract infection) Qualifiers: Urinary tract infection type: site unspecified Hematuria presence: without hematuria Qualified Code(s): N39.0 - Urinary tract infection, site not specified Is this a current diagnosis for this admission?: Yes Plan: Urine culture is all negative (4) Diabetes mellitus Qualifiers: Diabetes mellitus type: type 2 Diabetes mellitus detention insulin use: without detention use Diabetes mellitus complication status: with unspecified complications Qualified Code(s): E11.8 - Type 2 diabetes mellitus with un specified complications Is this a current diagnosis for this admission?: Yes Plan: Is pretty much diet control (5) CAD S/P percutaneous coronary angioplasty Is this a current diagnosis for this admission?: Yes Plan: We will consult the cardiology rule out the acute coronary syndromes (6) HLD (hyperlipidemia) Qualifiers: Hyperlipidemia type: unspecified Qualified Code(s): E78.5 - Hyperlipidemia, unspecified Is this a current diagnosis for this admission?: Yes Plan: Tinge to current medications (7) HTN (hypertension) Is this a current diagnosis for this admission?: Yes (8) Irritable bowel syndrome Qualifiers: Irritable bowel syndrome type: unspecified Qualified Code(s): K58.9 - Irritable bowel syndrome without diarrhea Is this a current diagnosis for this admission?: Yes Plan: Continue Bentyl (9) Left knee pain Qualifiers: Chronicity: acute Qualified Code(s): M25.562 - Pain in left knee Is this a current diagnosis for this admission?: Yes (10) Pancytopenia Is this a current diagnosis for this admission?: Yes Plan: Follow with oncology (11) Cough Is this a current diagnosis for this admission?: Yes Plan: Modified barium swallow suggest patients may require an endoscopy consult with Dr. Veras - Time Time Spent with patient: 15-24 minutes Medications reviewed and adjusted accordingly: Yes Anticipated discharge: Acute Rehab Within: Other - Plan Summary Plan Summary: As per discussed with the physical therapy the patient's get the benefit from the acute rehab Discussed with the patient understand Continues to current medications We will follow with the procurement inspector
[2018-03-04] MEDS ORDERED: LIDOCAINE 1% INJ-PF (10 MG/ML) 30 ML SDV ONE (14:21)
[2018-03-04] MEDS ORDERED: FENTANYL CITRATE INJ/PF 100 MCG/2 ML AMPUL ONE (14:21)
[2018-03-04] MEDS ORDERED: MIDAZOLAM 2 MG/2 ML INJ ONE (14:21)
--- NOTE | 2018-03-04 15:38 | RADIOLOGY REPORT (SQ) ---
EXAM DESCRIPTION: CT BIOPSY BONE MARROW, NEEDLE; CT NEEDLE PLACEMENT COMPLETED DATE/TIME: 03/04/2018 2:59 pm REASON FOR STUDY: ANEMIA COMPARISON: None. TECHNIQUE: CT guided biopsy of the right posterior iliac crest bone marrow performed with conscious sedation. CT Fluoroscopy Time: 3.[address] scanners at this facility use dose modulation, iterative reconstruction, and/or weight based d osing when appropriate to reduce radiation dose to as low as reasonably achievable (ALARA). [facility]: Dose Right [facility]: CareDose [facility]: Dose Right [facility]: Teradose 4D [facility]: [employer] RADIATION DOSE: mGy. FINDINGS: After obtaining informed consent and explaining the risks and benefits of conscious sedati on,the patient agreed to the procedure. Prior to the procedure, a time out was performed to verify th e patient's identity and planned procedure. IV conscious sedation was administered and physician direction by the registered nurse using 1 millig gee of Versed and 100 micrograms of fentanyl. Physiologic monitoring was provided before, during, an d after sedation. The total sedation time was 30 minutes. Documentation face to face time, the performing proceduralist, spent monitoring the patient: [address] scanning was performed to localize the percutaneous site for the biopsy approach. After sterile skin prep and local lidocaine for skin and deep tissue anesthesia, a coaxial biopsy nee dle was used to obtain a bone marrow aspirate, and a bone marrow core of tissue. The biopsy tissue wa s received by Dr. Becker's nurse to be sent out for evaluation. There were no immediate complication s. Pathology is pending at the time of dictation. IMPRESSION: CT GUIDED ASPIRATE AND CORE BIOPSY OF THE RIGHT POSTERIOR ILIAC CREST BONE MARROW PERFOR MED WITHOUT IMMEDIATE COMPLICATION. PATHOLOGY PENDING. IV CONSCIOUS SEDATION WITHOUT COMPLICATION. COMMENT: Quality ID 145: Final reports for procedures using fluoroscopy that document radiation exp osure indices, or exposure time and number of fluorographic images (if radiation exposure indices are not available) Patient medication list reviewed: Yes- Quality ID# [id number]:Eligible professional attests to documenting i n the medical record they obtained, updated, or reviewed the patient's current medications.. TECHNICAL DOCUMENTATION: JOB ID: [id number] Quality ID# [id number]: Final reports with documentation of one or more dose reduction techniques (e.g., Aut omated exposure control, adjustment of the mA and/or kV according to patient size, use of iterative r econstruction technique) 2010 [employer]- All Rights Reserved Reading location - IP/workstation name: [email or web address]
[2018-03-04] MEDS: POLYETHYLENE GLYCOL 3350 POWDER 17 GM/1 PACKET PO SCH (16:02)
[2018-03-04] MEDS: CETIRIZINE 5 MG TABLET PO SCH (17:39)
[2018-03-04] MEDS: ATORVASTATIN CALCIUM 20 MG TABLET PO SCH (22:33)
[2018-03-04] MEDS: ACETAMINOPHEN 325 MG TABLET PO PRN (23:04)
[2018-03-05] MEDS: BENZONATATE 100 MG CAPSULE PO SCH ×3 (05:44→22:05)
[2018-03-05] MEDS: ACETAMINOPHEN 325 MG TABLET PO PRN (08:24)
[2018-03-05] MEDS: DICYCLOMINE HCL 20 MG TABLET PO SCH ×3 (08:24→16:53)
[2018-03-05 09:04] LABS: ANION GAP 6 (5-19); BLOOD UREA NITROGEN 16 mg/dL (7-20); CALCIUM 9.2 mg/dL (8.4-10.2); CARBON DIOXIDE 26 mmol/L (22-30); CHLORIDE 107 mmol/L (98-107); GLUCOSE 99 mg/dL (75-110); POTASSIUM 5.2 mmol/L (3.6-5.0); SODIUM 139.4 mmol/L (137-145)
[2018-03-05 09:59] LABS: HEMOGLOBIN 11.5 g/dL (12.0-15.5); PLATELET COUNT 122 10^3/uL (150-450); RED CELL DISTRIBUTION WIDTH 15.6 % (11.5-14.0); WHITE BLOOD COUNT 1.9 10^3/uL (4.0-10.5)
[2018-03-05 10:06] LABS: HEMATOCRIT 35.5 % (36.0-47.0); MEAN CORPUSCULAR VOLUME 77 fl (80-97); RED BLOOD COUNT 4.61 10^6/uL (3.72-5.28)
[2018-03-05 10:07] LABS: MEAN CORPUSCULAR HEMOGLOBIN 24.9 pg (27.0-33.4); MEAN CORPUSCULAR HGB CONC 32.3 g/dL (32.0-36.0)
[2018-03-05] MEDS: TRAMADOL HCL 50 MG TABLET PO PRN (10:11)
[2018-03-05 10:12] LABS: ABSOLUTE LYMPHOCYTES# (MANUAL) 0.8 10^3/uL (0.5-4.7); ABSOLUTE MONOCYTES # (MANUAL) 0.3 10^3/uL (0.1-1.4); ABSOLUTE NEUTROPHILS# (MANUAL) 0.8 10^3/uL (1.7-8.2); BASOPHILS % (MANUAL) 0 % (0-2); EOSINOPHILS % (MANUAL) 0 % (0-6); LYMPHOCYTES % (MANUAL) 42 % (13-45); MONOCYTES % (MANUAL) 14 % (3-13); SEGMENTED NEUTROPHILS % (MAN) 44 % (42-78); TOTAL CELLS COUNTED 50
[2018-03-05] MEDS: RANOLAZINE 500 MG TAB.SR.12H PO SCH ×2 (10:12→22:05)
[2018-03-05] MEDS: LOSARTAN POTASSIUM 50 MG TABLET PO SCH (10:12)
[2018-03-05] MEDS: AMLODIPINE BESYLATE 2.5 MG TABLET PO SCH ×2 (10:12→22:07)
[2018-03-05] MEDS: DOCUSATE SODIUM 100 MG CAPSULE PO SCH ×2 (10:12→17:10)
[2018-03-05] MEDS: CLOPIDOGREL BISULFATE 75 MG TABLET PO SCH (10:12)
[2018-03-05] MEDS: FAMOTIDINE 20 MG TABLET PO SCH ×2 (10:12→17:09)
[2018-03-05] MEDS: METOPROLOL TARTRATE 25 MG TABLET PO SCH ×2 (10:12→22:05)
[2018-03-05] MEDS: POLYETHYLENE GLYCOL 3350 POWDER 17 GM/1 PACKET PO SCH (10:13)
[2018-03-05] MEDS: FLUTICASONE NASAL SPRAY 50 MCG/SPRY 120 SPRAY/16 GM NASL SCH ×2 (10:13→17:10)
[2018-03-05 10:14] LABS: ANISOCYTOSIS SLIGHT; OVALOCYTES SLIGHT; PLATELET CLUMPS PRESENT; PLATELET COMMENT DECREASED; POIKILOCYTOSIS SLIGHT; TARGET CELLS SLIGHT; TEAR DROP CELLS SLIGHT
[2018-03-05] MEDS: AZITHROMYCIN 500 MG in DEXTROSE 5%-WATER 250 ML IV SCH (10:33)
--- NOTE | 2018-03-05 13:20 | PDOC PROGRESS REPORT ---
Subjective Progress Note for:: 03/05/18 Subjective:: Patient without new problems. Slept well last night. Reason For Visit: SYNCOPAL EPISODE,UTI Physical Exam Vital Signs: Temp Pulse Resp BP Pulse Ox 98.0 F 59 L 19 168/78 H 94 03/05/18 07:48 03/05/18 07:48 03/05/18 07:48 03/05/18 07:48 03/05/18 07:48 Intake & Output 03/04/18 03/05/18 03/06/18 06:59 06:59 06:59 Intake Total 745 988 250 Output Total 1800 1550 Balance -1055 -562 250 Weight 110.7 kg 107.1 kg General appearance: PRESENT: obese Head exam: PRESENT: normocephalic Respiratory exam: PRESENT: unlabored - Wearing CPAP machine. Neurological exam: PRESENT: alert, awake Psychiatric exam: PRESENT: appropriate affect Skin exam: PRESENT: normal color Results Laboratory Results: 03/05/18 07:38 03/05/18 07:38 03/05/18 03/05/18 07:38 07:38 WBC 1.9 L RBC 4.61 Hgb 11.5 L Hct 35.5 L MCV 77 L MCH 24.9 L MCHC 32.3 RDW 15.6 H Plt Count 122 L Seg Neutrophils % Not Reportable Lymphocytes % Not Reportable Monocytes % Not Reportable Eosinophils % Not Reportable Basophils % Not Reportable Absolute Neutrophils Not Reportable Absolute Lymphocytes Not Reportable Absolute Monocytes Not Reportable Absolute Eosinophils Not Reportable Absolute Basophils Not Reportable Sodium 139.4 Potassium 5.2 H Chloride 107 Carbon Dioxide 26 Anion Gap 6 BUN 16 Creatinine 1.25 Est GFR ( Amer) 51 L Est GFR (Non-Af Amer) 42 L Glucose 99 Calcium 9.2 02/28/18 01:16 Blood Blood Culture - Final NO GROWTH IN 5 DAYS 02/27/18 21:30 Blood Blood Culture - Final NO GROWTH IN 5 DAYS 02/27/18 02/27/18 02/28/18 18:47 18:47 01:16 Creatine Kinase 134 128 CK-MB (CK-2) 0.55 Troponin I 0.014 02/28/18 02/28/18 02/28/18 01:16 07:17 07:17 Creatine Kinase 113 CK-MB (CK-2) 0.56 0.27 Troponin I < 0.012 < 0.012 02/28/18 02/28/18 13:16 13:16 Creatine Kinase 128 CK-MB (CK-2) 0.37 Troponin I < 0.012 Impressions: Knee X-Ray 02/27/18 17:20 IMPRESSION: No fracture or dislocation of the left knee status post total knee arthroplasty. Shoulder X-Ray 02/27/18 17:20 IMPRESSION: CHRONIC CHANGES. NO RADIOGRAPHIC EVIDENCE OF ACUTE INJURY. Head CT 02/27/18 19:27 IMPRESSION: No acute intracranial findings. Chest CT 02/28/18 00:00 IMPRESSION: NO SIGNIFICANT FINDING ON NON-CONTRASTED CHEST CT. Chest X-Ray 03/02/18 00:00 IMPRESSION: 1. No significant interval changes since the prior examination dated 02/27/2018. No acute findings. Head MRI 03/03/18 00:00 IMPRESSION: No evidence of acute infarct or other acute intracranial process. Minimal nonspecific white matter changes, likely sequelae of microangiopathic disease. Maxillary sinus mucosal disease. EVIDENCE OF ACUTE STROKE: NO. Modified Barium Swallow 03/03/18 00:00 IMPRESSION: NO EVIDENCE OF PENETRATION OR ASPIRATIONPLEASE SEE SPEECH PATHOLOGIST REPORT FOR OTHER FINDINGS AND RECOMMENDATIONS. Bone Marrow Biopsy w/ CT 03/04/18 00:00 IMPRESSION: CT GUIDED ASPIRATE AND CORE BIOPSY OF THE RIGHT POSTERIOR ILIAC CREST BONE MARROW PERFORMED WITHOUT IMMEDIATE COMPLICATION. PATHOLOGY PENDING. IV CONSCIOUS SEDATION WITHOUT COMPLICATION. Guidance Needle Placement CT 03/04/18 00:00 IMPRESSION: CT GUIDED ASPIRATE AND CORE BIOPSY OF THE RIGHT POSTERIOR ILIAC CREST BONE MARROW PERFORMED WITHOUT IMMEDIATE COMPLICATION. PATHOLOGY PENDING. IV CONSCIOUS SEDATION WITHOUT COMPLICATION. Assessment & Plan - Diagnosis (1) Pancytopenia Is this a current diagnosis for this admission?: Yes Plan: Bone marrow biopsy was performed yesterday. Await results. No significant change in blood counts over the past few days. Continue neutropenic prec autions. (2) Syncope Qualifiers: Syncope type: unspecified Qualified Code(s): R55 - Syncope and collapse Is this a current diagnosis for this admission?: Yes (3) Fever Qualifiers: Fever type: unspecified Qualified Code(s): R50.9 - Fever, unspecified Is this a current diagnosis for this admission?: Yes Plan: Currently resolved, but with the neutropenia, will watch for further infections. - Plan Summary Plan Summary: I will continue to follow with you. If all else is stable, she could be discharged from our standpoint with very close follow-up. I agree with plans for rehab stay to improve mobility.
--- NOTE | 2018-03-05 13:42 | PDOC PROGRESS REPORT ---
Subjective Progress Note for:: 03/05/18 Subjective:: Patient is currently doing well patient underwent for the bone marrow biopsy Patients remain afebrile Denied any chest pain denied any shortness of the breath Patients need a physical therapy yesterday Reason For Visit: SYNCOPAL EPISODE,UTI Physical Exam Vital Signs: Temp Pulse Resp BP Pulse Ox 98.0 F 59 L 19 168/78 H 94 03/05/18 07:48 03/05/18 07:48 03/05/18 07:48 03/05/18 07:48 03/05/18 07:48 Intake & Output 03/04/18 03/05/18 03/06/18 06:59 06:59 06:59 Intake Total 745 988 250 Output Total 1800 1550 Balance -1055 -562 250 Weight 110.7 kg 107.1 kg General appearance: PRESENT: no acute distress, well-developed, well-nourished Head exam: PRESENT: atraumatic, normocephalic Eye exam: PRESENT: conjunctiva pink, EOMI, PERRLA. ABSENT: scleral icterus Ear exam: PRESENT: normal external ear exam Mouth exam: PRESENT: moist, tongue midline Neck exam: PRESENT: full ROM. ABSENT: carotid bruit, JVD, lymphadenopathy, thyromegaly Respiratory exam: PRESENT: clear to auscultation radha Cardiovascular exam: PRESENT: RRR. ABSENT: diastolic murmur, rubs, systolic murmur Vascular exam: PRESENT: normal capillary refill GI/Abdominal exam: PRESENT: normal bowel sounds, soft. ABSENT: distended, guarding, mass, organolmegaly, rebound, tenderness Rectal exam: PRESENT: deferred Musculoskeletal exam: PRESENT: ambulatory Neurological exam: PRESENT: alert, awake, oriented to person, oriented to place, oriented to time, oriented to situation, CN II-XII grossly intact. ABSENT: motor sensory deficit Psychiatric exam: PRESENT: appropriate affect, normal mood. ABSENT: homicidal ideation, suicidal ideation Skin exam: PRESENT: dry, intact, warm. ABSENT: cyanosis, rash Results Laboratory Results: 03/05/18 07:38 03/05/18 07:38 03/05/18 03/05/18 07:38 07:38 WBC 1.9 L RBC 4.61 Hgb 11.5 L Hct 35.5 L MCV 77 L MCH 24.9 L MCHC 32.3 RDW 15.6 H Plt Count 122 L Seg Neutrophils % Not Reportable Lymphocytes % Not Reportable Monocytes % Not Reportable Eosinophils % Not Reportable Basophils % Not Reportable Absolute Neutrophils Not Reportable Absolute Lymphocytes Not Reportable Absolute Monocytes Not Reportable Absolute Eosinophils Not Reportable Absolute Basophils Not Reportable Sodium 139.4 Potassium 5.2 H Chloride 107 Carbon Dioxide 26 Anion Gap 6 BUN 16 Creatinine 1.25 Est GFR ( Amer) 51 L Est GFR (Non-Af Amer) 42 L Glucose 99 Calcium 9.2 02/28/18 01:16 Blood Blood Culture - Final NO GROWTH IN 5 DAYS 02/27/18 21:30 Blood Blood Culture - Final NO GROWTH IN 5 DAYS 02/27/18 02/27/18 02/28/18 18:47 18:47 01:16 Creatine Kinase 134 128 CK-MB (CK-2) 0.55 Troponin I 0.014 02/28/18 02/28/18 02/28/18 01:16 07:17 07:17 Creatine Kinase 113 CK-MB (CK-2) 0.56 0.27 Troponin I < 0.012 < 0.012 02/28/18 02/28/18 13:16 13:16 Creatine Kinase 128 CK-MB (CK-2) 0.37 Troponin I < 0.012 Impressions: Knee X-Ray 02/27/18 17:20 IMPRESSION: No fracture or dislocation of the left knee status post total knee arthroplasty. Shoulder X-Ray 02/27/18 17:20 IMPRESSION: CHRONIC CHANGES. NO RADIOGRAPHIC EVIDENCE OF ACUTE INJURY. Head CT 02/27/18 19:27 IMPRESSION: No acute intracranial findings. Chest CT 02/28/18 00:00 IMPRESSION: NO SIGNIFICANT FINDING ON NON-CONTRASTED CHEST CT. Chest X-Ray 03/02/18 00:00 IMPRESSION: 1. No significant interval changes since the prior examination da jovan 02/27/2018. No acute findings. Head MRI 03/03/18 00:00 IMPRESSION: No evidence of acute infarct or other acute intracranial process. Minimal nonspecific white matter changes, likely sequelae of microangiopathic disease. Maxillary sinus mucosal disease. EVIDENCE OF ACUTE STROKE: NO. Modified Barium Swallow 03/03/18 00:00 IMPRESSION: NO EVIDENCE OF PENETRATION OR ASPIRATIONPLEASE SEE SPEECH PATHOLOGIST REPORT FOR OTHER FINDINGS AND RECOMMENDATIONS. Bone Marrow Biopsy w/ CT 03/04/18 00:00 IMPRESSION: CT GUIDED ASPIRATE AND CORE BIOPSY OF THE RIGHT POSTERIOR ILIAC CREST BONE MARROW PERFORMED WITHOUT IMMEDIATE COMPLICATION. PATHOLOGY PENDING. IV CONSCIOUS SEDATION WITHOUT COMPLICATION. Guidance Needle Placement CT 03/04/18 00:00 IMPRESSION: CT GUIDED ASPIRATE AND CORE BIOPSY OF THE RIGHT POSTERIOR ILIAC CREST BONE MARROW PERFORMED WITHOUT IMMEDIATE COMPLICATION. PATHOLOGY PENDING. IV CONSCIOUS SEDATION WITHOUT COMPLICATION. Assessment & Plan - Diagnosis (1) Syncope Qualifiers: Syncope type: unspecified Qualified Code(s): R55 - Syncope and collapse Is this a current diagnosis for this admission?: Yes Plan: All workup is negative Patient already seen the cardiology as outpatient with ongoing workup (2) Fever Qualifiers: Fever type: unspecified Qualified Code(s): R50.9 - Fever, unspecified Is this a current diagnosis for this admission?: Yes Plan: Currently all resolved (3) UTI (urinary tract infection) Qualifiers: Urinary tract infection type: site unspecified Hematuria presence: without hematuria Qualified Code(s): N39.0 - Urinary tract infection, site not specified Is this a current diagnosis for this admission?: Yes Plan: Urine culture is all negative (4) Diabetes mellitus Qualifiers: Diabetes mellitus type: type 2 Diabetes mellitus cook specialty insulin use: without residential use Diabetes mellitus complication status: with unspecified complications Qualified Code(s): E11.8 - Type 2 diabetes mellitus with unspecified complications Is this a current diagnosis for this admission?: Yes Plan: Is pretty much diet control (5) CAD S/P percutaneous coronary angioplasty Is this a current diagnosis for this admission?: Yes Plan: We will consult the cardiology rule out the acute coronary syndromes (6) HLD (hyperlipidemia) Qualifiers: Hyperlipidemia type: unspecified Qualified Code(s): E78.5 - Hyperlipidemia, unspecified Is this a current diagnosis for this admission?: Yes Plan: Tinge to current medications (7) HTN (hypertension) Is this a current diagnosis for this admission?: Yes (8) Irritable bowel syndrome Qualifiers: Irritable bowel syndrome type: unspecified Qualified Code(s): K58.9 - Irrit able bowel syndrome without diarrhea Is this a current diagnosis for this admission?: Yes Plan: Continue Bentyl (9) Left knee pain Qualifiers: Chronicity: acute Qualified Code(s): M25.562 - Pain in left knee Is this a current diagnosis for this admission?: Yes (10) Pancytopenia Is this a current diagnosis for this admission?: Yes Plan: Status post bone marrow biopsy (11) Cough Is this a current diagnosis for this admission?: Yes - Time Time Spent with patient: 15-24 minutes Medications reviewed and adjusted accordingly: Yes Anticipated discharge: Acute Rehab Within: within 24 hours - Plan Summary Plan Summary: The patient's remained stable will discharge to the rehab facility
[2018-03-05 13:55] LABS: ABSOLUTE RETICS # 0.029 10^6/uL (0.028-0.122); RETICULOCYTE COUNT (AUTO) 0.63 % (0.66-2.85)
[2018-03-05 14:15] LABS: IRON(TIBC) 62.3 ug/dL (37-170)
[2018-03-05] MEDS: CETIRIZINE 5 MG TABLET PO SCH (17:09)
[2018-03-05] MEDS: ATORVASTATIN CALCIUM 20 MG TABLET PO SCH (22:05)
[2018-03-06] MEDS: BENZONATATE 100 MG CAPSULE PO SCH ×3 (05:29→21:45)
[2018-03-06 08:38] LABS: ANION GAP 6 (5-19); BLOOD UREA NITROGEN 16 mg/dL (7-20); CALCIUM 9.1 mg/dL (8.4-10.2); CARBON DIOXIDE 26 mmol/L (22-30); CHLORIDE 106 mmol/L (98-107); GLUCOSE 96 mg/dL (75-110); SODIUM 138.3 mmol/L (137-145)
[2018-03-06] MEDS: DICYCLOMINE HCL 20 MG TABLET PO SCH ×3 (08:51→16:54)
[2018-03-06] MEDS: CLOPIDOGREL BISULFATE 75 MG TABLET PO SCH (09:12)
[2018-03-06] MEDS: DOCUSATE SODIUM 100 MG CAPSULE PO SCH ×2 (09:12→17:10)
[2018-03-06] MEDS: POLYETHYLENE GLYCOL 3350 POWDER 17 GM/1 PACKET PO SCH (09:12)
[2018-03-06] MEDS: RANOLAZINE 500 MG TAB.SR.12H PO SCH ×2 (09:12→21:44)
[2018-03-06] MEDS: FAMOTIDINE 20 MG TABLET PO SCH ×2 (09:13→18:41)
[2018-03-06] MEDS: AMLODIPINE BESYLATE 2.5 MG TABLET PO SCH ×2 (09:13→21:44)
[2018-03-06] MEDS: LOSARTAN POTASSIUM 50 MG TABLET PO SCH (09:15)
[2018-03-06] MEDS: AZITHROMYCIN 250 MG TABLET PO SCH (09:15)
[2018-03-06] MEDS: METOPROLOL TARTRATE 25 MG TABLET PO SCH ×2 (09:16→21:45)
[2018-03-06] MEDS: FLUTICASONE NASAL SPRAY 50 MCG/SPRY 120 SPRAY/16 GM NASL SCH ×2 (09:17→18:41)
[2018-03-06 11:45] LABS: ABSOLUTE LYMPHOCYTES (AUTO) 1.4 10^3/uL (0.5-4.7); ABSOLUTE MONOCYTES (AUTO) 0.4 10^3/uL (0.1-1.4); BASOPHILS % (AUTO) 0.4 % (0-2); EOSINOPHILS % (AUTO) 0.4 % (0-6); HEMOGLOBIN 11.3 g/dL (12.0-15.5); LYMPHOCYTES % (AUTO) 50.5 % (13-45); MONOCYTES % (AUTO) 14.8 % (3-13); PLATELET COUNT 150 10^3/uL (150-450); RED CELL DISTRIBUTION WIDTH 15.3 % (11.5-14.0); SEGMENTED NEUTROPHILS % (AUTO) 33.9 % (42-78); TOTAL CELLS COUNTED % (AUTO) 100 %; WHITE BLOOD COUNT 2.8 10^3/uL (4.0-10.5)
[2018-03-06 11:48] LABS: HEMATOCRIT 35.1 % (36.0-47.0); MEAN CORPUSCULAR HEMOGLOBIN 24.8 pg (27.0-33.4); MEAN CORPUSCULAR VOLUME 77 fl (80-97); RED BLOOD COUNT 4.58 10^6/uL (3.72-5.28)
[2018-03-06 11:49] LABS: MEAN CORPUSCULAR HGB CONC 32.3 g/dL (32.0-36.0)
[2018-03-06] MEDS: TRAMADOL HCL 50 MG TABLET PO PRN ×2 (12:50→21:49)
--- NOTE | 2018-03-06 13:34 | PDOC TRANSFER SUMMARY ---
General - Admit/Disc Date/PCP Admission Date/Primary Care Provider: 02/27/18 21:38 RYDER HERNANDEZ MD Discharge Date: 03/06/18 - Discharge Diagnosis (1) Syncope Is this a current diagnosis for this admission?: Yes Summary: Patient had extensive workup including the neuro workup and cardiac workup is negative Patient is to follow outpatient cardiology at [facility] with ongoing problems (2) Fever Is this a current diagnosis for this admission?: Yes Summary: Currently all resolved most likely a viral with some bronchitis (3) UTI (urinary tract infection) Is this a current diagnosis for this admission?: Yes Summary: Urine culture is all negative (4) Diabetes mellitus Is this a current diagnosis for this admission?: Yes Summary: Currently all stable continues to current medications check the blood sugar once a day (5) CAD S/P percutaneous coronary angioplasty Is this a current diagnosis for this admission?: Yes Summary: Follow with the [facility] cardiology (6) HLD (hyperlipidemia) Is this a current diagnosis for this admission?: Yes (7) HTN (hypertension) Is this a current diagnosis for this admission?: Yes (8) Irritable bowel syndrome Is this a current diagnosis for this admission?: Yes Summary: Currently see Dr. Veras (9) Left knee pain Is this a current diagnosis for this admission?: Yes Summary: Physical therapy (10) Pancytopenia Is this a current diagnosis for this admission?: Yes Summary: Status post bone marrow biopsy (11) Cough Is this a current diagnosis for this admission?: Yes Summary: Resolved We also discontinued the benazepril and put the patient on the losartan Patient was seen by Dr. Chavira Patient CT of the chest is negative (12) Sleep apnea Is this a current diagnosis for this admission?: Yes Summary: Patients need another CPAP machine make appointment to see her Dr. Alcantar for further evaluations for the CPAP - Additional Information Discharge Diet: Cardiac Discharge Activity: Activity As Tolerated Prescriptions: Azithromycin [Zithromax 250 mg Tablet] 250 mg PO DAILY #5 tablet Benzonatate [Tessalon Perles 100 mg Capsule] 100 mg PO Q8 #21 capsule Ipratropium/Albuterol Sulfate [Duoneb 3 ml Ampul] 3 ml NEB RTQ6HP PRN #120 vial.neb PRN Reason: Losartan Potassium [Cozaar 50 mg Tablet] 100 mg PO DAILY #30 tablet Tramadol HCl [Ultram 50 mg Tablet] 50 mg PO Q6HP PRN #20 tablet PRN Reason: Home Medications: Atorvastatin Calcium [Lipitor 20 mg Tablet] 20 mg PO QHS 02/28/18 Clopidogrel Bisulfate [Plavix 75 mg Tablet] 75 mg PO DAILY 02/28/18 Dicyclomine HCl [Bentyl 20 mg Tablet] 20 mg PO TID 02/28/18 Levocetirizine Dihydrochloride [Xyzal] 5 mg PO QPM 02/28/18 Metoprolol Tartrate [Lopressor 25 mg Tablet] 25 mg PO Q12 02/28/18 Polyethylene Glycol 3350 [Miralax Powder 17 gm/Packet] 1 packet PO DAILY 02/28/18 Ranolazine [Ranexa 500 mg Tab.sr] 500 mg PO Q12 02/28/18 Azithromycin [Zithromax 250 mg Tablet] 250 mg PO DAILY #5 tablet 03/06/18 Benzonatate [Tessalon Perles 100 mg Capsule] 100 mg PO Q8 #21 capsule 03/06/18 Ipratropium/Albuterol Sulfate [Duoneb 3 ml Ampul] 3 ml NEB RTQ6HP PRN #120 vi al.neb 03/06/18 Losartan Potassium [Cozaar 50 mg Tablet] 100 mg PO DAILY #30 tablet 03/06/18 Tramadol HCl [Ultram 50 mg Tablet] 50 mg PO Q6HP PRN #20 tablet 03/06/18 History of Present Illness Admission Date/PCP: 02/27/18 21:38 RYDER HERNANDEZ MD History of Present Illness: ELISABETH SUNG is a 72 year old female This is a 72-year-old female with a history of the hypertension hyperlipidemia diabetes history of the coronary disease currently see the cardiology at [facility] the syncopal episodes Patient noticed that she is almost pass out and patient's hurting her knee in emergency department patient's noticed that patient's temperature is 102 and patient knee x-ray is all stable Patient when I saw her complaining of a Cough congestions since last 2 weeks and getting more worse patient is noticed a fever and chills yesterday Patient is denied any abdominal pain no nausea no vomiting Patient is denied any chest pain Patient's denied any other symptoms Unfortunately patient had a most of antibiotic allergy reviewed all the pharmacy outpatient inpatient patients pretty much all antibiotic allergy except the azithromycin Patient is giving the possible Macrobid 1 dose for urinary tract infections questionable Patient even cannot take the betamethasone cannot take the Benadryl Patients at this point will start on IV azithromycin will wait for the blood culture urine culture and order the sputum culture Hospital Course Hospital Course: This is a 72-year-old female presents in the emergency department because of the syncopal episode with ongoing problems with a complaint of her knee pain and patients were found to be a fever and a bronchitis Patient initial CT head was negative Other blood work is all stable Patient is white count is 4.7 normally patient is running 2.5 range with most likely hematology evaluations done in the past and suggest a ethic Patient admitting in the hospital start the patient in IV antibiotic which is very difficult to treat this patient's because of the most of the medications patient's claims allergies only thing patients can take the IV azithromycin's Patient's blood cultures is all negative's and a urine culture is also negative's Patient CT of the chest was negative for any acute finding Patient seen by Dr. Chavira subpulmonary Patient also seen by the cardiology Dr. 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 Veras and suggest to follow outpatient endoscopy Patient is otherwise remained afebrile patient's white count is also stable Patient is at this point discharged to the rehab facility as per discussed with the patient and the family Discussed with the patient if any fever or chills needs to come to the ER Patient is continues to follow with the cardiology as outpatients with the [facility] for ongoing workup for the syncopal Patient MRI of the head was also negative for any acute finding Physical Exam Vital Signs: Temp Pulse Resp BP Pulse Ox 97.8 F 61 16 138/90 H 98 03/06/18 08:08 03/06/18 08:08 03/06/18 08:08 03/06/18 08:08 03/06/18 08:08 Intake & Output 03/05/18 03/06/18 03/07/18 06:59 06:59 06:59 Intake Total 988 610 237 Output Total 1550 Balance -562 610 237 Weight 107.1 kg 108 kg General appearance: PRESENT: no acute distress, well-developed, well-nourished Head exam: PRESENT: atraumatic, normocephalic Eye exam: PRESENT: conjunctiva pink, EOMI, PERRLA. ABSENT: scleral icterus Ear exam: PRESENT: normal external ear exam Mouth exam: PRESENT: moist, tongue midline Neck exam: ABSENT: carotid bruit, JVD, lymphadenopathy, thyromegaly Respiratory exam: PRESENT: clear to auscultation radha. ABSENT: rales, rhonchi, wheezes Cardiovascular exam: PRESENT: RRR. ABSENT: diastolic murmur, rubs, systolic murmur Pulses: PRESENT: normal dorsalis pedis pul Vascular exam: PRESENT: normal capillary refill GI/Abdominal exam: PRESENT: normal bowel sounds, soft. ABSENT: distended, guarding, mass, organolmegaly, rebound, tenderness Rectal exam: PRESENT: deferred Extremities exam: PRESENT: full ROM. ABSENT: calf tenderness, clubbing, pedal edema Neurological exam: PRESENT: alert, awake, oriented to person, oriented to place, oriented to time, oriented to situation, CN II-XII grossly intact. ABSENT: motor sensory deficit Psychiatric exam: PRESENT: appropriate affect, normal mood. ABSENT: homicidal ideation, suicidal ideation Skin exam: PRESENT: dry, intact, warm. ABSENT: cyanosis, rash Results Laboratory Results: 03/06/18 11:39 03/06/18 06:57 03/05/18 03/05/18 03/06/18 07:38 07:38 06:57 WBC RBC Hgb Hct MCV MCH MCHC RDW Plt Count Seg Neutrophils % Lymphocytes % Monocytes % Eosinophils % Basophils % Absolute Neutrophils Absolute Lymphocytes Absolute Monocytes Absolute Eosinophils Absolute Basophils Retic Count (auto) 0.63 L Absolute Retic 0.029 Sodium 138.3 Potassium 5.0 Chloride 106 Carbon Dioxide 26 Anion Gap 6 BUN 16 Creatinine 1.40 H Est GFR ( Amer) 45 L Est GFR (Non-Af Amer) 37 L Glucose 96 Calcium 9.1 Iron 62.3 TIBC 229 L % Saturation 27 Ferritin 281.00 H Vitamin B12 242.0 Folate 12.00 03/06/18 03/06/18 09:56 11:39 WBC Cancelled 2.8 L RBC Cancelled 4.58 Hgb Cancelled 11.3 L Hct Cancelled 35.1 L MCV Cancelled 77 L MCH Cancelled 24.8 L MCHC Cancelled 32.3 RDW Cancelled 15.3 H Plt Count Cancelled 150 Seg Neutrophils % Cancelled 33.9 L Lymphocytes % Cancelled 50.5 H Monocytes % Cancelled 14.8 H Eosinophils % Cancelled 0.4 Basophils % Cancelled 0.4 Absolute Neutrophils Cancelled 1.0 L Absolute Lymphocytes Cancelled 1.4 Absolute Monocytes Cancelled 0.4 Absolute Eosinophils Cancelled 0.0 Absolute Basophils Cancelled 0.0 Retic Count (auto) Absolute Retic Sodium Potassium Chloride Carbon Dioxide Anion Gap BUN Creatinine Est GFR ( Amer) Est GFR (Non-Af Amer) Glucose Calcium Iron TIBC % Saturation Ferritin Vitamin B12 Folate 02/27/18 02/27/18 02/28/18 18:47 18:47 01:16 Creatine Kinase 134 128 CK-MB (CK-2) 0.55 Troponin I 0.014 02/28/18 02/28/18 02/28/18 01:16 07:17 07:17 Creatine Kinase 113 CK-MB (CK-2) 0.56 0.27 Troponin I < 0.012 < 0.012 02/28/18 02/28/18 13:16 13:16 Creatine Kinase 128 CK-MB (CK-2) 0.37 Troponin I < 0.012 Impressions: Knee X-Ray 02/27/18 17:20 IMPRESSION: No fracture or dislocation of the left knee status post total knee arthroplasty. Shoulder X-Ray 02/27/18 17:20 IMPRESSION: CHRONIC CHANGES. NO RADIOGRAPHIC EVIDENCE OF ACUTE INJURY. Head CT 02/27/18 19:27 IMPRESSION: No acute intracranial findings. Chest CT 02/28/18 00:00 IMPRESSION: NO SIGNIFICANT FINDING ON NON-CONTRASTED CHEST CT. Chest X-Ray 03/02/18 00:00 IMPRESSION: 1. No significant interval changes since the prior examination dated 02/27/2018. No acute findings. Head MRI 03/03/18 00:00 IMPRESSION: No evidence of acute infarct or other acute intracranial process. Minimal nonspecific white matter changes, likely sequelae of microangiopathic disease. Maxillary sinus mucosal disease. EVIDENCE OF ACUTE STROKE: NO. Modified Barium Swallow 03/03/18 00:00 IMPRESSION: NO EVIDENCE OF PENETRATION OR ASPIRATIONPLEASE SEE SPEECH PATHOLOGIST REPORT FOR OTHER FINDINGS AND RECOMMENDATIONS. Bone Marrow Biopsy w/ CT 03/04/18 00:00 IMPRESSION: CT GUIDED ASPIRATE AND CORE BIOPSY OF THE RIGHT POSTERIOR ILIAC CREST BONE MARROW PERFORMED WITHOUT IMMEDIATE COMPLICATION. PATHOLOGY PENDING. IV CONSCIOUS SEDATION WITHOUT COMPLICATION. Guidance Needle Placement CT 03/04/18 00:00 IMPRESSION: CT GUIDED ASPIRATE AND CORE BIOPSY OF THE RIGHT POSTERIOR ILIAC CREST BONE MARROW PERFORMED WITHOUT IMMEDIATE COMPLICATION. PATHOLOGY PENDING. IV CONSCIOUS SEDATION WITHOUT COMPLICATION. Transfer Plan - Time Spent with Patient Time spent with patient: Greater than 30 Minutes Qualifiers - * PATIENT BEING DISCHARGED WITH ANY OF THE FOLLOWING DIAGNOSIS: No VTE patient discharged on overlapping Therapy?: Yes Plan Time Spent: Greater than 30 Minutes - Discharge to the nursing rehab Continues to physical therapy Check a CBC and Chem-7 in 1 week Outpatients sleep lab Follow outpatients cardiology and hematology
[2018-03-06] MEDS: CETIRIZINE 5 MG TABLET PO SCH (18:41)
[2018-03-06] MEDS: ATORVASTATIN CALCIUM 20 MG TABLET PO SCH (21:45)
[2018-03-07] MEDS: BENZONATATE 100 MG CAPSULE PO SCH ×3 (05:27→21:15)
[2018-03-07 07:41] LABS: ANION GAP 5 (5-19); BLOOD UREA NITROGEN 20 mg/dL (7-20); CALCIUM 9.2 mg/dL (8.4-10.2); CARBON DIOXIDE 28 mmol/L (22-30); CHLORIDE 105 mmol/L (98-107); GLUCOSE 95 mg/dL (75-110); POTASSIUM 4.8 mmol/L (3.6-5.0); SODIUM 137.8 mmol/L (137-145)
[2018-03-07 07:46] LABS: ABSOLUTE LYMPHOCYTES (AUTO) 1.7 10^3/uL (0.5-4.7); ABSOLUTE MONOCYTES (AUTO) 0.3 10^3/uL (0.1-1.4); ABSOLUTE NEUT (AUTO) 0.8 10^3/uL (1.7-8.2); BASOPHILS % (AUTO) 0.1 % (0-2); EOSINOPHILS % (AUTO) 0.7 % (0-6); HEMOGLOBIN 11.9 g/dL (12.0-15.5); LYMPHOCYTES % (AUTO) 59.6 % (13-45); MEAN CORPUSCULAR HEMOGLOBIN 24.8 pg (27.0-33.4); MEAN CORPUSCULAR HGB CONC 32.1 g/dL (32.0-36.0); MEAN CORPUSCULAR VOLUME 77 fl (80-97); MONOCYTES % (AUTO) 11.2 % (3-13); PLATELET COUNT 121 10^3/uL (150-450); RED BLOOD COUNT 4.78 10^6/uL (3.72-5.28); RED CELL DISTRIBUTION WIDTH 15.5 % (11.5-14.0); SEGMENTED NEUTROPHILS % (AUTO) 28.4 % (42-78); TOTAL CELLS COUNTED % (AUTO) 100 %; WHITE BLOOD COUNT 2.8 10^3/uL (4.0-10.5)
[2018-03-07] MEDS: FLUTICASONE NASAL SPRAY 50 MCG/SPRY 120 SPRAY/16 GM NASL SCH ×2 (09:09→18:10)
[2018-03-07] MEDS: POLYETHYLENE GLYCOL 3350 POWDER 17 GM/1 PACKET PO SCH (09:09)
[2018-03-07] MEDS: RANOLAZINE 500 MG TAB.SR.12H PO SCH ×2 (09:10→21:15)
[2018-03-07] MEDS: DOCUSATE SODIUM 100 MG CAPSULE PO SCH ×2 (09:10→18:10)
[2018-03-07] MEDS: CLOPIDOGREL BISULFATE 75 MG TABLET PO SCH (09:10)
[2018-03-07] MEDS: AZITHROMYCIN 250 MG TABLET PO SCH (09:10)
[2018-03-07] MEDS: LOSARTAN POTASSIUM 50 MG TABLET PO SCH (09:10)
[2018-03-07] MEDS: FAMOTIDINE 20 MG TABLET PO SCH ×2 (09:10→18:10)
[2018-03-07] MEDS: METOPROLOL TARTRATE 25 MG TABLET PO SCH ×2 (09:10→21:16)
[2018-03-07] MEDS: AMLODIPINE BESYLATE 2.5 MG TABLET PO SCH ×2 (09:11→21:15)
[2018-03-07] MEDS: DICYCLOMINE HCL 20 MG TABLET PO SCH ×3 (09:11→15:06)
[2018-03-07] MEDS: ACETAMINOPHEN 325 MG TABLET PO PRN ×2 (09:11→21:16)
[2018-03-07] MEDS: TRAMADOL HCL 50 MG TABLET PO PRN (11:51)
[2018-03-07] MEDS: CETIRIZINE 5 MG TABLET PO SCH (18:10)
[2018-03-07] MEDS: ATORVASTATIN CALCIUM 20 MG TABLET PO SCH (21:15)
[2018-03-08 04:47] LABS: ABSOLUTE LYMPHOCYTES (AUTO) 1.5 10^3/uL (0.5-4.7); ABSOLUTE MONOCYTES (AUTO) 0.4 10^3/uL (0.1-1.4); BASOPHILS % (AUTO) 0.5 % (0-2); EOSINOPHILS % (AUTO) 1.1 % (0-6); HEMATOCRIT 34.2 % (36.0-47.0); HEMOGLOBIN 11.1 g/dL (12.0-15.5); LYMPHOCYTES % (AUTO) 50.8 % (13-45); MEAN CORPUSCULAR HEMOGLOBIN 24.7 pg (27.0-33.4); MEAN CORPUSCULAR HGB CONC 32.5 g/dL (32.0-36.0); MEAN CORPUSCULAR VOLUME 76 fl (80-97); MONOCYTES % (AUTO) 14.1 % (3-13); PLATELET COUNT 166 10^3/uL (150-450); RED CELL DISTRIBUTION WIDTH 14.9 % (11.5-14.0); SEGMENTED NEUTROPHILS % (AUTO) 33.5 % (42-78); TOTAL CELLS COUNTED % (AUTO) 100 %; WHITE BLOOD COUNT 2.9 10^3/uL (4.0-10.5)
[2018-03-08 05:17] LABS: BLOOD UREA NITROGEN 24 mg/dL (7-20); CARBON DIOXIDE 25 mmol/L (22-30); CHLORIDE 107 mmol/L (98-107); GLUCOSE 96 mg/dL (75-110); POTASSIUM 4.8 mmol/L (3.6-5.0); SODIUM 136.2 mmol/L (137-145)
[2018-03-08 05:28] LABS: ANION GAP 4 (5-19)
[2018-03-08] MEDS: BENZONATATE 100 MG CAPSULE PO SCH ×3 (05:36→21:52)
[2018-03-08] MEDS: DICYCLOMINE HCL 20 MG TABLET PO SCH ×3 (09:39→17:29)
[2018-03-08] MEDS: AMLODIPINE BESYLATE 2.5 MG TABLET PO SCH ×2 (09:40→21:50)
[2018-03-08] MEDS: FAMOTIDINE 20 MG TABLET PO SCH ×2 (09:40→17:29)
[2018-03-08] MEDS: AZITHROMYCIN 250 MG TABLET PO SCH (09:40)
[2018-03-08] MEDS: POLYETHYLENE GLYCOL 3350 POWDER 17 GM/1 PACKET PO SCH (09:40)
[2018-03-08] MEDS: METOPROLOL TARTRATE 25 MG TABLET PO SCH ×2 (09:40→21:51)
[2018-03-08] MEDS: FLUTICASONE NASAL SPRAY 50 MCG/SPRY 120 SPRAY/16 GM NASL SCH ×2 (09:40→17:28)
[2018-03-08] MEDS: DOCUSATE SODIUM 100 MG CAPSULE PO SCH ×2 (09:40→17:29)
[2018-03-08] MEDS: RANOLAZINE 500 MG TAB.SR.12H PO SCH ×2 (09:40→21:52)
[2018-03-08] MEDS: CLOPIDOGREL BISULFATE 75 MG TABLET PO SCH (09:40)
[2018-03-08] MEDS: LOSARTAN POTASSIUM 50 MG TABLET PO SCH (12:00)
[2018-03-08] MEDS: CETIRIZINE 5 MG TABLET PO SCH (17:29)
[2018-03-08] MEDS: ATORVASTATIN CALCIUM 20 MG TABLET PO SCH (21:50)
[2018-03-09] MEDS: BENZONATATE 100 MG CAPSULE PO SCH ×2 (05:02→14:15)
[2018-03-09] MEDS: DICYCLOMINE HCL 20 MG TABLET PO SCH ×3 (07:35→15:57)
--- NOTE | 2018-03-09 07:36 | PDOC PROGRESS REPORT ---
Subjective Progress Note for:: 03/09/18 Subjective:: patient feeling much better. No new issues. Reason For Visit: SYNCOPAL EPISODE,UTI Physical Exam Vital Signs: Temp Pulse Resp BP Pulse Ox 98.1 F 62 18 126/69 H 97 03/08/18 23:58 03/09/18 02:00 03/09/18 01:57 03/08/18 23:58 03/09/18 01:57 Intake & Output 03/08/18 03/09/18 03/10/18 06:59 06:59 06:59 Intake Total 1290 1530 Balance 1290 1530 Weight 108 kg General appearance: PRESENT: obese Exam: CPAP in place. Head exam: PRESENT: normocephalic Respiratory exam: PRESENT: unlabored Extremities exam: ABSENT: pedal edema Neurological exam: PRESENT: alert, awake Psychiatric exam: PRESENT: appropriate affect Skin exam: PRESENT: normal color Results Laboratory Results: 03/08/18 04:41 03/08/18 04:41 02/27/18 02/27/18 02/28/18 18:47 18:47 01:16 Creatine Kinase 134 128 CK-MB (CK-2) 0.55 Troponin I 0.014 02/28/18 02/28/18 02/28/18 01:16 07:17 07:17 Creatine Kinase 113 CK-MB (CK-2) 0.56 0.27 Troponin I < 0.012 < 0.012 02/28/18 02/28/18 13:16 13:16 Creatine Kinase 128 CK-MB (CK-2) 0.37 Troponin I < 0.012 Impressions: Knee X-Ray 02/27/18 17:20 IMPRESSION: No fracture or dislocation of the left knee status post total knee arthroplasty. Shoulder X-Ray 02/27/18 17:20 IMPRESSION: CHRONIC CHANGES. NO RADIOGRAPHIC EVIDENCE OF ACUTE INJURY. Head CT 02/27/18 19:27 IMPRESSION: No acute intracranial findings. Chest CT 02/28/18 00:00 IMPRESSION: NO SIGNIFICANT FINDING ON NON-CONTRASTED CHEST CT. Chest X-Ray 03/02/18 00:00 IMPRESSION: 1. No significant interval changes since the prior examination dated 02/27/2018. No acute findings. Head MRI 03/03/18 00:00 IMPRESSION: No evidence of acute infarct or other acute intracranial process. Minimal nonspecific white matter changes, likely sequelae of microangiopathic disease. Maxillary sinus mucosal disease. EVIDENCE OF ACUTE STROKE: NO. Modified Barium Swallow 03/03/18 00:00 IMPRESSION: NO EVIDENCE OF PENETRATION OR ASPIRATIONPLEASE SEE SPEECH PATHOLOGI ST REPORT FOR OTHER FINDINGS AND RECOMMENDATIONS. Bone Marrow Biopsy w/ CT 03/04/18 00:00 IMPRESSION: CT GUIDED ASPIRATE AND CORE BIOPSY OF THE RIGHT POSTERIOR ILIAC CRE ST BONE MARROW PERFORMED WITHOUT IMMEDIATE COMPLICATION. PATHOLOGY PENDING. IV CONSCIOUS SEDATION WITHOUT COMPLICATION. Guidance Needle Placement CT 03/04/18 00:00 IMPRESSION: CT GUIDED ASPIRATE AND CORE BIOPSY OF THE RIGHT POSTERIOR ILIAC CREST BONE MARROW PERFORMED WITHOUT IMMEDIATE COMPLICATION. PATHOLOGY PENDING. IV CONSCIOUS SEDATION WITHOUT COMPLICATION. Assessment & Plan - Diagnosis (1) Pancytopenia Is this a current diagnosis for this admission?: Yes Plan: This is improving. Still awaiting bone marrow biopsy report. (2) Syncope Qualifiers: Syncope type: unspecified Qualified Code(s): R55 - Syncope and collapse Is this a current diagnosis for this admission?: Yes (3) Fever Qualifiers: Fever type: unspecified Qualified Code(s): R50.9 - Fever, unspecified Is this a current diagnosis for this admission?: Yes Plan: Now resolved. - Plan Summary Plan Summary: Will continue to follow as outpatient and make sure biopsy report is reviewed.
[2018-03-09] MEDS: DOCUSATE SODIUM 100 MG CAPSULE PO SCH (09:48)
[2018-03-09] MEDS: LOSARTAN POTASSIUM 50 MG TABLET PO SCH (09:48)
[2018-03-09] MEDS: AZITHROMYCIN 250 MG TABLET PO SCH (09:48)
[2018-03-09] MEDS: CLOPIDOGREL BISULFATE 75 MG TABLET PO SCH (09:49)
[2018-03-09] MEDS: METOPROLOL TARTRATE 25 MG TABLET PO SCH (09:49)
[2018-03-09] MEDS: POLYETHYLENE GLYCOL 3350 POWDER 17 GM/1 PACKET PO SCH (09:49)
[2018-03-09] MEDS: RANOLAZINE 500 MG TAB.SR.12H PO SCH (09:49)
[2018-03-09] MEDS: FAMOTIDINE 20 MG TABLET PO SCH (09:50)
[2018-03-09] MEDS: AMLODIPINE BESYLATE 2.5 MG TABLET PO SCH (09:50)
[2018-03-09] MEDS: FLUTICASONE NASAL SPRAY 50 MCG/SPRY 120 SPRAY/16 GM NASL SCH (09:51)
[2018-03-09 12:48] VITALS: BP 103/61
== END 2018-03-09 16:19 | DRG 312 ==
LOC: ER 14:55 → OBSVTOIN 21:38 → EH 21:38 → 5 02-28 00:30
PROVIDERS: ADMIT Family Medicine; ATTEND Family Medicine
PROC: 07DR3ZX Extraction of Iliac Bone Marrow, Percutaneous Approach, Diagnostic (ICD-10-PCS; principal; 2018-03-04)
DX: R55 Syncope and collapse (principal); D61.818 Other pancytopenia; N39.0 Urinary tract infection, site not specified; B34.9 Viral infection, unspecified; J40 Bronchitis, not specified as acute or chronic; M25.562 Pain in left knee; I10 Essential (primary) hypertension; E78.5 Hyperlipidemia, unspecified; E11.9 Type 2 diabetes mellitus without complications; I25.10 Atherosclerotic heart disease of native coronary artery without angina pectoris; K58.9 Irritable bowel syndrome, unspecified; K21.9 Gastro-esophageal reflux disease without esophagitis; G47.30 Sleep apnea, unspecified; M19.90 Unspecified osteoarthritis, unspecified site; F32.9 Major depressive disorder, single episode, unspecified; Z79.02 Long term (current) use of antithrombotics/antiplatelets; Z95.5 Presence of coronary angioplasty implant and graft; I25.2 Old myocardial infarction; Z90.710 Acquired absence of both cervix and uterus; Z96.653 Presence of artificial knee joint, bilateral; Z88.8 Allergy status to other drugs, medicaments and biological substances; Z88.0 Allergy status to penicillin; Z88.2 Allergy status to sulfonamides
CPT/HCPCS: 36415; 38221; 70450; 70551; 71046; 71250; 74230; 77012; 80048; 80053; 80076; 81001; 82550; 82553; 82607; 82728; 82746; 82962; 83540; 83550; 83605; 83735; 84484; 85025; 85045; 85610; 85730; 86603; 87040; 87070; 87086; 87205; 87804; 93005; 93010; 94660; 96360; 99285; J0456; J1580; J1650; J2250; J3010; J3490; J7030; J7040; J7060; J7512; J8499

== ENCOUNTER 2018-07-08 19:37 | Emergency (ER) | payer MEDICARE, MEDICAID ==
[2018-07-08] MEDS ORDERED: MORPHINE SULFATE 10 MG/ML INJ IV ONE (20:10)
[2018-07-08] MEDS ORDERED: ONDANSETRON HCL INJ/PF 4 MG/2 ML SDV IV ONE (20:11)
[2018-07-08] MEDS ORDERED: NORMAL SALINE 500 ML IV ONE (20:12)
[2018-07-08] MEDS ORDERED: LIDOCAINE 1% INJ-PF (10 MG/ML) 30 ML SDV INJ ONE (20:16)
--- NOTE | 2018-07-08 20:16 | ER Document Report ---
ED General - General Chief Complaint: Fall Stated Complaint: FALL Time Seen by Provider: 07/08/18 20:08 Primary Care Provider: JOSE FRANCISCO CORNELIUS MD [ACTIVE STAFF] - Follow up as needed Mode of Arrival: Medic Information source: Patient, [facility] Records Notes: 72-year-old female with coronary artery disease, hypertension, type 1 diabetes, previous CVA presents after a syncopal episode and fall just prior to arrival. Patient states that she was at [employer] walking up to sing with the choir when the next thing she knew she was awakening on the ground. Patient denies any recent illness, preceding chest pain, shortness of breath, dizziness. She states she has otherwise been well. Patient currently complaining of right-sided headache, right shoulder and wrist pain. Patient is on Plavix currently. She denies any nausea, visual changes, vomiting, chest pain, shortness of breath, abdominal pain. TRAVEL OUTSIDE OF THE [place] IN LAST 30 DAYS: No - HPI Onset: Just prior to arrival Onset/Duration: Sudden Quality of pain: Throbbing Severity: Moderate Associated symptoms: Headache. denies: Chest pain, Nausea, Vomiting, Shortness of breath Exacerbated by: Movement Relieved by: Denies Similar symptoms previously: No Recently seen / treated by doctor: No - Related Data Allergies/Adverse Reactions: betamethasone [Betamethasone] Allergy (Intermediate, Verified 02/27/18 15:09) burning skin ceftriaxone sodium [From Rocephin] Allergy (Intermediate, Verified 02/27/18 15:09) Urticaria ciprofloxacin [From Cipro] Allergy (Intermediate, Verified 02/27/18 15:09) Urticaria clindamycin [Clindamycin] Allergy (Intermediate, Verified 02/27/18 15:09) Urticaria clotrimazole [Clotrimazole] Allergy (Intermediate, Verified 02/27/18 15:09) burning skin diphenhydramine HCl [From Benadryl] Allergy (Intermediate, Verified 02/27/18 15:09) Urticaria doxycycline [Doxycycline] Allergy (Intermediate, Verified 02/27/18 15:09) Urticaria latex [Latex] Allergy (Intermediate, Verified 02/27/18 15:09) Urticaria metronidazole [From Flagyl] Allergy (Intermediate, Verified 02/27/18 15:09) Urticaria oxycodone [Oxycodone] Allergy (Intermediate, Verified 02/27/18 15:09) Penicillins Allergy (Intermediate, Verified 02/27/18 15:09) Urticaria Sulfa (Sulfonamide Antibiotics) Allergy (Intermediate, Verified 02/27/18 15:09) Urticaria hydrocodone bitartrate [From Vicodin] Allergy (Verified 02/27/18 15:09) mupirocin [From Bactroban] Allergy (Verified 02/27/18 15:09) aspirin [Aspirin] Adverse Reaction (Mild, Verified 02/27/18 15:09) Nausea PAPER TAPE Allergy (Uncoded 02/27/18 15:09) Blisters Past Medical History - General Information source: Patient, Emergency Med Personnel, [facility] Records - Social History Smoking Status: Never Smoker Frequency of alcohol use: None Drug Abuse: None Lives with: Alone Family History: CAD, Hypertension, Malignancy - Past Medical History Cardiac Medical History: Reports: Hx Coronary Artery Disease, Hx Heart Attack - x 4, Hx Hypercholesterolemia, Hx Hypertension Pulmonary Medical History: Reports: Hx Bronchitis, Hx Pneumonia, Hx Sleep Apnea Denies: Hx Asthma, Hx COPD, Hx Tuberculosis Neurological Medical History: Reports: Hx Cerebrovascular Accident - RIGHT SIDED WEAKNESS, NUMBNESS TINGLING R LEG. Denies: Hx Seizures Endocrine Medical History: Reports: Hx Diabetes Mellitus Type 1, Hx Diabetes Mellitus Type 2 - diet controlled Renal/ Medical History: Reports: Hx Renal Insufficiency. Denies: Hx Peritoneal Dialysis GI Medical History: Reports: Hx Gastroesophageal Reflux Disease, Hx Irritable Bowel, Hx Pancreatitis Musculoskeletal Medical History: Reports Hx Arthritis Psychiatric Medical History: Reports: Hx Depression Infectious Medical History: Denies: Hx HIV Past Surgical History: Reports: Hx Appendectomy, Hx Cardiac Catheterization, Hx Coronary Stent, Hx Hysterectomy, Hx Orthopedic Surgery - Bilateral total knee replacements. Bilateral shoulder surgeries., Hx Tonsillectomy, Hx Umbilical Hernia. Denies: Hx Cardiac Surgery - Immunizations Hx Diphtheria, Pertussis, Tetanus Vaccination: Yes Hx Pneumococcal Vaccination: 04/24/10 Review of Systems - Review of Systems Notes: REVIEW OF SYSTEMS: CONSTITUTIONAL : Denies fever, chills, or sweats. Denies recent illness. Denies weight loss, recent hospitalizations. EENT: Denies visual changes, eye pain. Denies sore throat, oral lesions, difficulty swallowing. CARDIOVASCULAR: Denies chest pain. Denies palpitations. Denies lower extremity edema. RESPIRATORY: Denies cough. Denies shortness of breath, wheezing. GASTROINTESTINAL: Denies abdominal pain or distention. Denies nausea, vomiting, or diarrhea. Denies blood in vomitus, stools, or per rectum. Denies black, tarry stools. Denies constipation. GENITOURINARY: Denies difficulty urinating, painful urination, frequency, blood in urine, or vaginal discharge. MUSCULOSKELETAL: Denies back or neck pain or stiffness. + joint pain, swelling. SKIN: Denies rash, lesions or sores. HEMATOLOGIC : Denies easy bruising or bleeding. LYMPHATIC: Denies swollen glands. NEUROLOGICAL: Denies confusion or altered mental status. Denies loss of consciousness. Denies dizziness or weakness or paralysis. Denies problems difficulty with ambulation, slurred speech. Denies sensory loss, numbness, or tingling. Denies seizures. PSYCHIATRIC: Denies anxiety or stress. Denies depression, suicidal ideation, or homicidal ideation. Denies visual or auditory hallucinations. Physical Exam - Vital signs Vitals: Temp Pulse Resp BP Pulse Ox 98.4 F 66 18 142/60 H 100 07/08/18 20:57 07/08/18 20:57 07/08/18 20:57 07/08/18 20:57 07/08/18 20:57 - Notes Notes: PHYSICAL EXAMINATION: GENERAL: Well-appearing, well-nourished and in no acute distress. C collar in place. GCS 15 HEAD: 3.5cm laceration to the right eyebrow EYES: Pupils equal round and reactive to light, extraocular movements intact, sclera anicteric, conjunctiva are normal. ENT: Nares patent, oropharynx clear without exudates. Moist mucous membranes. No hemanotympanum . No blood in nares. No dental fracture NECK: Normal range of motion, supple without lymphadenopathy. Trachea midline LUNGS: Breath sounds clear to auscultation bilaterally and equal. No wheezes rales or rhonchi. HEART: Regular rate and rhythm without murmurs. Pulses intact all throughout. ABDOMEN: Soft, nontender, nondistended abdomen. No guarding, no rebound. No masses appreciated. Musculoskeletal: Normal range of motion, no pitting or edema. Tenderness with palpation along the right shoulder, right elbow and right wrist. No obvious deformity. Cap refill less than 2 seconds, sensation intact,2/4 radial and ulnar pulse. NEUROLOGICAL: Cranial nerves grossly intact. Normal speech, normal gait. Norm al sensory, motor, and reflex exams. PSYCH: Normal mood, normal affect. SKIN: 3.5cm laceration to the right eyebrow Course - Re-evaluation Re-evalutation: 07/08/18 23:00 Laboratory 07/08/18 07/08/18 07/08/18 20:13 21:05 21:05 WBC 4.1 RBC 4.19 Hgb 10.9 L Hct 33.5 L MCV 80 MCH 26.1 L MCHC 32.6 RDW 14.8 H Plt Count 198 Seg Neutrophils % 51.0 Lymphocytes % 32.2 Monocytes % 14.6 H Eosinophils % 2.0 Basophils % 0.2 Absolute Neutrophils 2.1 Absolute Lymphocytes 1.3 Absolute Monocytes 0.6 Absolute Eosinophils 0.1 Absolute Basophils 0.0 PT INR APTT Sodium 134.7 L Potassium 4.5 Chloride 108 H Carbon Dioxide 22 Anion Gap 5 BUN 32 H Creatinine 1.90 H Est GFR ( Amer) 32 L Est GFR (Non-Af Amer) 26 L Glucose 100 POC Glucose 95 Calcium 9.6 Magnesium 2.1 Total Bilirubin 0.4 Direct Bilirubin 0.3 Neonat Total Bilirubin Not Reportable Neonat Direct Bilirubin Not Reportable Neonat Indirect Bili Not Reportable AST 29 ALT 21 Alkaline Phosphatase 143 H Creatine Kinase 138 H CK-MB (CK-2) Troponin I Total Protein 8.0 Albumin 4.1 07/08/18 07/08/18 21:05 21:05 WBC RBC Hgb Hct MCV MCH MCHC RDW Plt Count Seg Neutrophils % Lymphocytes % Monocytes % Eosinophils % Basophils % Absolute Neutrophils Absolute Lymphocytes Absolute Monocytes Absolute Eosinophils Absolute Basophils PT 13.9 INR 1.02 APTT 32.3 Sodium Potassium Chloride Carbon Dioxide Anion Gap BUN Creatinine Est GFR ( Amer) Est GFR (Non-Af Amer) Glucose POC Glucose Calcium Magnesium Total Bilirubin Direct Bilirubin Neonat Total Bilirubin Neonat Direct Bilirubin Neonat Indirect Bili AST ALT Alkaline Phosphatase Creatine Kinase CK-MB (CK-2) 0.74 Troponin I < 0.012 Total Protein Albumin Cervical Spine CT 07/08/18 00:00 IMPRESSION: 1. No acute intracranial hemorrhage. 2. No acute fracture or subluxation of the cervical spine. Head CT 07/08/18 00:00 IMPRESSION: 1. No acute intracranial hemorrhage. 2. No acute fracture or subluxation of the cervical spine. Chest X-Ray 07/08/18 20:08 IMPRESSION: No evidence of acute cardiopulmonary disease. Elbow X-Ray 07/08/18 20:08 IMPRESSION: No acute fracture is seen. Please note that evaluation for elbow joint effusion is not possible given the lack of a 90 degree lateral view. Wrist X-Ray 07/08/18 20:08 IMPRESSION: No acute fracture or malalignment. Shoulder X-Ray 07/08/18 20:11 IMPRESSION: No acute fracture or malalignment. Temp Pulse Resp BP Pulse Ox 98.4 F 66 13 137/71 H 95 07/08/18 20:57 07/08/18 20:57 07/08/18 22:01 07/08/18 22:00 07/08/18 22:01 07/09/18 03:34 Presentation of a well appearing elderly patient in no acute distress, vitals within normal limits after a mechanical fall. Patient denies a syncopal episode as the cause for today's fall. No focal neurologic deficits on exam, no evide nce of basilar skull fracture on exam without evidence of hemotympanum, raccoon eyes, or periauricular hematoma. No papilledema. Patient is not on anticoagulation. GCS is 15. No loss of consciousness. No episodes of vomiting. However, based on patient's age a CT of the head has been obtained w hich is negative for any acute intracranial bleed. Likewise, patient was unable to be clinically cleared due to age by [place] cervical spine criteria. A CT of the cervical spine was also obtained and likewise is negative for any acute fracture. No indication for further imaging of the cervical spine. Patient has no focal deformities or limited range of motion in any joint space. Chest and abdominal exam are benign without any focal tenderness, shortness of breath, or bruising over the chest or abdominal wall. Patient has no flank tenderness. At this time will discharge with return precautions and follow-up recommendations. Verbal discharge instructions given a the bedside and opportunity for questions given. Medication warnings reviewed. Patient is in agreement with this plan and has verbalized understanding of return precautions and the need for primary care follow-up in the next 24-72 hours. - Vital Signs Vital signs: Temp Pulse Resp BP Pulse Ox 98.4 F 66 16 102/62 97 07/08/18 20:57 07/08/18 20:57 07/09/18 01:34 07/09/18 01:34 07/09/18 01:34 - Laboratory Result Diagrams: 07/08/18 21:05 07/08/18 21:05 Laboratory results interpreted by me: 07/08/18 07/08/18 07/09/18 21:05 21:05 00:24 Hgb 10.9 L Hct 33.5 L MCH 26.1 L RDW 14.8 H Monocytes % 14.6 H Sodium 134.7 L Chloride 108 H BUN 32 H Creatinine 1.90 H Est GFR ( Amer) 32 L Est GFR (Non-Af Amer) 26 L Alkaline Phosphatase 143 H Creatine Kinase 138 H Urine Blood SMALL H - Diagnostic Test Radiology reviewed: Image reviewed, Reports reviewed - EKG Interpretation by Me EKG shows normal: Sinus rhythm Rate: Normal Rhythm: NSR Stearns/QRS: RBBB, IVCD Procedures - Laceration/Wound Repair Right Face Time completed: 22:59 Wound length (cm): 3.5 Wound's Depth, Shape: Superficial, Linear Laceration pre-procedure: Sterile PPE donned Anesthetic type: 1% Lidocaine Volume Anesthetic (mLs): 5 Wound explored: Clean Irrigated w/ Saline (mLs): 500 Wound Repaired With: Sutures Suture Size/Type: 6:0, Prolene Number of Sutures: 4 Post-procedure wound care: Sterile dressing applied Discharge - Discharge Clinical Impression: Acute kidney injury Laceration of right eyebrow Qualifiers: Encounter type: initial encounter Qualified Code(s): S01.111A - Laceration without foreign body of right eyelid and periocular area, initial encounter Fall Qualifiers: Encounter type: initial encounter Qualified Code(s): W19.XXXA - Unspecified fall, initial encounter Syncope Qualifiers: Syncope type: unspecified Qualified Code(s): R55 - Syncope and collapse Head injury Qualifiers: Encounter type: initial encounter Qualified Code(s): S09.90XA - Unspecified injury of head, initial encounter Condition: Good Disposition: HOME, SELF-CARE Instructions: Dehydration ([facility]), Laceration Care ([facility]) Additional Instructions: You have been seen in the Emergency Department (ED) today following a fall. Your workup today did not reveal any injuries that require you to stay in the hospital. You can expect, though, to be stiff and sore for the next several days. You can take Tylenol 1000 mg every 6 hours as needed for pain. You can apply a hot pack or electric heating pad to the sore areas. You can also use topical "Aspercreme with lidocaine" to sore areas as needed. Please follow up with your primary care doctor as soon as possible regarding today's ED visit and your recent fall. Call your doctor or return to the ED if you develop a sudden or severe headache, confusion, slurred speech, facial droop, weakness or numbness in any arm or leg, extreme fatigue, vomiting more than two times, severe abdominal pain, or other symptoms that concern you. Please return to your primary doctor, the ED, or an urgent care in 5 days for suture removal. Return immediately if you develop spreading redness around the wound, pus from the wound, worsening pain, or a fever of >100.4. Keep the area clean and dry. Wash gently with soap and water twice daily and cover with antibiotic ointment. Forms: Elevated Blood Pressure Referrals: JOSE FRANCISCO CORNELIUS MD [ACTIVE STAFF] - Follow up as needed
--- NOTE | 2018-07-08 20:17 | RADIOLOGY REPORT (SQ) ---
CT BRAIN AND CERVICAL SPINE HISTORY: Trauma. COMPARISON: None. TECHNIQUE: CT scan of the brain and cervical spine without IV contrast. This exam was performed according to our departmental dose-optimization program, which includes automated exposure control, adjustment of the mA and/or kV according to patient size and/or use of iterative reconstruction technique. FINDINGS: BRAIN: The ventricles, cisterns, and sulci are age-appropriate. No evidence of acute infarction, intracranial hemorrhage, extra-axial fluid collection, or midline shift. No air-fluid levels are seen in the paranasal sinuses to suggest acute sinusitis. No depressed skull fracture. CERVICAL SPINE: No acute cervical fracture or prevertebral soft tissue swelling. There is straightening of the normal cervical lordosis, which may be due to cervical collar, muscle spasm, or patient positioning. Multilevel degenerative disc disease along with facet arthropathy is present. There are multilevel disc bulges but without advanced canal stenosis identified. IMPRESSION: 1. No acute intracranial hemorrhage. 2. No acute fracture or subluxation of the cervical spine.
--- NOTE | 2018-07-08 20:51 | RADIOLOGY REPORT (SQ) ---
XR CHEST 1 VIEW HISTORY: Fall. COMPARISON: 02/04/2017 FINDINGS: The heart size is within normal limits. No consolidation, pleural effusion, or pneumothorax is seen. There are no acute bony findings. IMPRESSION: No evidence of acute cardiopulmonary disease.
--- NOTE | 2018-07-08 20:53 | RADIOLOGY REPORT (SQ) ---
3 VIEWS OF RIGHT SHOULDER HISTORY: Fall. Shoulder pain. COMPARISON: None. FINDINGS: Generalized osteopenia is present. No acute fracture is seen. The joint spaces are preserved. The soft tissues are unremarkable. IMPRESSION: No acute fracture or malalignment.
--- NOTE | 2018-07-08 21:11 | RADIOLOGY REPORT (SQ) ---
4 VIEWS OF RIGHT ELBOW HISTORY: Joint pain. COMPARISON: None. FINDINGS: Generalized osteopenia is present. No acute fracture or dislocation is seen. The joint spaces are preserved. Cannot evaluate for elbow joint effusion due to lack of a 90 degree lateral view. IMPRESSION: No acute fracture is seen. Please note that evaluation for elbow joint effusion is not possible given the lack of a 90 degree lateral view.
--- NOTE | 2018-07-08 21:14 | RADIOLOGY REPORT (SQ) ---
3 VIEWS OF RIGHT WRIST HISTORY: Joint pain. COMPARISON: None. FINDINGS: No acute fracture is seen. The joint spaces are preserved. The surrounding soft tissues are swollen. IMPRESSION: No acute fracture or malalignment.
[2018-07-08 21:50] LABS: ABSOLUTE EOSINOPHILS # (AUTO) 0.1 10^3/uL (0.0-0.6); ABSOLUTE LYMPHOCYTES (AUTO) 1.3 10^3/uL (0.5-4.7); ABSOLUTE MONOCYTES (AUTO) 0.6 10^3/uL (0.1-1.4); ABSOLUTE NEUT (AUTO) 2.1 10^3/uL (1.7-8.2); BASOPHILS % (AUTO) 0.2 % (0-2); HEMATOCRIT 33.5 % (36.0-47.0); HEMOGLOBIN 10.9 g/dL (12.0-15.5); LYMPHOCYTES % (AUTO) 32.2 % (13-45); MEAN CORPUSCULAR HEMOGLOBIN 26.1 pg (27.0-33.4); MEAN CORPUSCULAR HGB CONC 32.6 g/dL (32.0-36.0); MEAN CORPUSCULAR VOLUME 80 fl (80-97); MONOCYTES % (AUTO) 14.6 % (3-13); PLATELET COUNT 198 10^3/uL (150-450); RED BLOOD COUNT 4.19 10^6/uL (3.72-5.28); RED CELL DISTRIBUTION WIDTH 14.8 % (11.5-14.0); TOTAL CELLS COUNTED % (AUTO) 100 %; WHITE BLOOD COUNT 4.1 10^3/uL (4.0-10.5)
[2018-07-08 22:04] LABS: INTERNATIONAL RATION (INR) 1.02; PROTHROMBIN TIME 13.9 SEC (11.4-15.4)
[2018-07-08 22:05] LABS: PARTIAL THROMBOPLASTIN TIME 32.3 SEC (23.5-35.8)
[2018-07-08 22:07] LABS: ALANINE AMINOTRANSFERASE 21 U/L (9-52); ALBUMIN 4.1 g/dL (3.5-5.0); ALKALINE PHOSPHATASE 143 U/L (38-126); ANION GAP 5 (5-19); ASPARTATE AMINO TRANSFERASE 29 U/L (14-36); BILIRUBIN,DIRECT 0.3 mg/dL (0.0-0.4); BILIRUBIN,TOTAL 0.4 mg/dL (0.2-1.3); BLOOD UREA NITROGEN 32 mg/dL (7-20); CALCIUM 9.6 mg/dL (8.4-10.2); CARBON DIOXIDE 22 mmol/L (22-30); CHLORIDE 108 mmol/L (98-107); CREATINE KINASE 138 U/L (30-135); GLUCOSE 100 mg/dL (75-110); POTASSIUM 4.5 mmol/L (3.6-5.0); SODIUM 134.7 mmol/L (137-145)
--- NOTE | 2018-07-08 22:14 | EKG REPORT ---
SEVERITY:- ABNORMAL ECG - SINUS RHYTHM IVCD, CONSIDER ATYPICAL RBBB LVH WITH IVCD AND SECONDARY REPOL ABNRM : Confirmed by: Lissette Blankenship MD 08-Jul-2018 22:14:11
[2018-07-08 22:29] LABS: CREATINE KINASE MB 0.74 ng/mL (<4.55)
[2018-07-08 22:30] LABS: TROPONIN I < 0.012 ng/mL
[2018-07-09 00:45] LABS: APPEARANCE,URINE CLEAR; BILIRUBIN,URINE NEGATIVE (NEGATIVE); COLOR,URINE STRAW; GLUCOSE, URINE NEGATIVE (NEGATIVE); KETONES,URINE NEGATIVE (NEGATIVE); LEUKOCYTE ESTERASE,URINE NEGATIVE (NEGATIVE); NITRITE,URINE NEGATIVE (NEGATIVE); PROTEIN,URINE NEGATIVE (NEGATIVE); URINE SPECIFIC GRAVITY 1.006; UROBILINOGEN,URINE NEGATIVE mg/dL (<2.0)
[2018-07-09 01:57] VITALS: BP 102/62
== END 2018-07-09 01:57 | disposition home or self-care (01) ==
LOC: ER 19:37
DX: S01.111A Laceration without foreign body of right eyelid and periocular area, initial encounter (principal); S09.90XA Unspecified injury of head, initial encounter; R51 Headache; R55 Syncope and collapse; W19.XXXA Unspecified fall, initial encounter; Y92.22 Religious institution as the place of occurrence of the external cause; N17.9 Acute kidney failure, unspecified; I25.10 Atherosclerotic heart disease of native coronary artery without angina pectoris; I10 Essential (primary) hypertension; E10.9 Type 1 diabetes mellitus without complications; Z86.73 Personal history of transient ischemic attack (TIA), and cerebral infarction without residual deficits
CPT/HCPCS: 93005; 99284; 96361; 96374; 96375; 36415; 82553; 82962; 82550; 83735; 85025; 85610; 85730; 80053; 81001; 84484; 71045; 73080; 73030; 73110; 70450; 72125; 93010; 12013; J3490; J2270; J2405; J7040

== ENCOUNTER → 2018-07-15 | Outpatient (CLI) | payer MEDICARE, MEDICAID ==
[2018-07-15 15:06] LABS: ABSOLUTE EOSINOPHILS # (AUTO) 0.1 10^3/uL (0.0-0.6); ABSOLUTE LYMPHOCYTES (AUTO) 1.1 10^3/uL (0.5-4.7); ABSOLUTE MONOCYTES (AUTO) 0.4 10^3/uL (0.1-1.4); BASOPHILS % (AUTO) 0.5 % (0-2); EOSINOPHILS % (AUTO) 2.1 % (0-6); HEMATOCRIT 32.9 % (36.0-47.0); HEMOGLOBIN 10.5 g/dL (12.0-15.5); MEAN CORPUSCULAR HEMOGLOBIN 26.4 pg (27.0-33.4); MEAN CORPUSCULAR VOLUME 82 fl (80-97); MONOCYTES % (AUTO) 16.4 % (3-13); PLATELET COUNT 184 10^3/uL (150-450); RED CELL DISTRIBUTION WIDTH 14.5 % (11.5-14.0); TOTAL CELLS COUNTED % (AUTO) 100 %; WHITE BLOOD COUNT 2.6 10^3/uL (4.0-10.5)
[2018-07-15 15:23] LABS: ALBUMIN 3.9 g/dL (3.5-5.0); ANION GAP 10 (5-19); BLOOD UREA NITROGEN 23 mg/dL (7-20); CALCIUM 9.4 mg/dL (8.4-10.2); CARBON DIOXIDE 25 mmol/L (22-30); CHLORIDE 107 mmol/L (98-107); GLUCOSE 96 mg/dL (75-110); PHOSPHORUS 3.4 mg/dL (2.5-4.5); POTASSIUM 4.5 mmol/L (3.6-5.0); SODIUM 141.6 mmol/L (137-145)
[2018-07-15 15:35] LABS: APPEARANCE,URINE CLEAR; BILIRUBIN,URINE NEGATIVE (NEGATIVE); COLOR,URINE YELLOW; GLUCOSE, URINE NEGATIVE (NEGATIVE); KETONES,URINE NEGATIVE (NEGATIVE); LEUKOCYTE ESTERASE,URINE TRACE (NEGATIVE); NITRITE,URINE NEGATIVE (NEGATIVE); PROTEIN,URINE NEGATIVE (NEGATIVE); URINE SPECIFIC GRAVITY 1.011; UROBILINOGEN,URINE NEGATIVE mg/dL (<2.0)
[2018-07-17 12:38] LABS: CREATININE URINE 97.7 mg/dL (Not Estab.); MICROALBUMIN URINE 12.3 ug/mL (Not Estab.)
== END ==
LOC: OD 14:11
PROVIDERS: ATTEND Internal Medicine Nephrology
DX: I12.9 Hypertensive chronic kidney disease with stage 1 through stage 4 chronic kidney disease, or unspecified chronic kidney disease (principal); N18.3 Chronic kidney disease, stage 3 (moderate); E11.22 Type 2 diabetes mellitus with diabetic chronic kidney disease
CPT/HCPCS: 36415; 80069; 81001; 82043; 82306; 82570; 83970; 85025

== ENCOUNTER 2018-08-24 08:47 | Observation (INO) | payer MEDICARE, MEDICAID ==
--- NOTE | 2018-08-24 09:23 | ER Document Report ---
ED Syncope and Near Syncope - General Chief Complaint: Syncope Stated Complaint: SYNCOPE Time Seen by Provider: 08/24/18 09:16 Primary Care Provider: DINAH FLAHERTY MD [ACTIVE STAFF] - Follow up as needed Notes: Patient says that she was walking to an appointment this morning and things again "spinning and then went black" and she fell to the sidewalk. She hit the left side of her head. Became very sweaty and weak all over. Denies any prior headache. Denies any chest pain. Denies any difficulty breathing. Patient says she has had this happen to her about 3 times in the past. She has had 10 strokes previously. Denies any nausea or vomiting. Denies any recent illness. No fevers. Patient did not eat anything this morning, but that is not unusual for her. Patient says that she has a history of an irregular heartbeat, but does not recognize the term A. fib. She is on Plavix, but no other blood thinners. Patient was left with some mild residual left sided weakness from her previous strokes. TRAVEL OUTSIDE OF THE [place] IN LAST 30 DAYS: No - Related Data Allergies/Adverse Reactions: betamethasone [Betamethasone] Allergy (Intermediate, Verified 02/27/18 15:09) burning skin ceftriaxone sodium [From Rocephin] Allergy (Intermediate, Verified 02/27/18 15:09) Urticaria ciprofloxacin [From Cipro] Allergy (Intermediate, Verified 02/27/18 15:09) Urticaria clindamycin [Clindamycin] Allergy (Intermediate, Verified 02/27/18 15:09) Urticaria clotrimazole [Clotrimazole] Allergy (Intermediate, Verified 02/27/18 15:09) burning skin diphenhydramine HCl [From Benadryl] Allergy (Intermediate, Verified 02/27/18 15:09) Urticaria doxycycline [Doxycycline] Allergy (Intermediate, Verified 02/27/18 15:09) Urticaria latex [Latex] Allergy (Intermediate, Verified 02/27/18 15:09) Urticaria metronidazole [From Flagyl] Allergy (Intermediate, Verified 02/27/18 15:09) Urticaria oxycodone [Oxycodone] Allergy (Intermediate, Verified 02/27/18 15:09) Penicillins Allergy (Intermediate, Verified 02/27/18 15:09) Urticaria Sulfa (Sulfonamide Antibiotics) Allergy (Intermediate, Verified 02/27/18 15:09) Urticaria hydrocodone bitartrate [From Vicodin] Allergy (Verified 02/27/18 15:09) mupirocin [From Bactroban] Allergy (Verified 02/27/18 15:09) aspirin [Aspirin] Adverse Reaction (Mild, Verified 02/27/18 15:09) Nausea PAPER TAPE Allergy (Uncoded 02/27/18 15:09) Blisters Past Medical History - Social History Smoking Status: Unknown if Ever Smoked Family History: Reviewed & Not Pertinent, CAD, Hypertension, Malignancy - Past Medical History Cardiac Medical History: Reports: Hx Coronary Artery Disease, Hx Heart Attack - x 4, Hx Hypercholesterolemia, Hx Hypertension, Other - Total she has an irregular heartbeat. Pulmonary Medical History: Reports: Hx Bronchitis, Hx Pneumonia, Hx Sleep Apnea Neurological Medical History: Reports: Hx Cerebrovascular Accident - Multiple strokes in the past, only residual is minor left-sided weakness.. Denies: Hx Seizures Endocrine Medical History: Reports: Hx Diabetes Mellitus Type 1, Hx Diabetes Mellitus Type 2 - diet controlled Renal/ Medical History: Reports: Hx Renal Insufficiency GI Medical History: Reports: Hx Gastroesophageal Reflux Disease, Hx Irritable Bowel, Hx Pancreatitis Musculoskeletal Medical History: Reports Hx Arthritis Psychiatric Medical History: Reports: Hx Depression Infectious Medical History: Denies: Hx HIV Past Surgical History: Reports: Hx Appendectomy, Hx Cardiac Catheterization, Hx Coronary Stent, Hx Hysterectomy, Hx Orthopedic Surgery - Bilateral total knee replacements. Bilateral shoulder surgeries., Hx Tonsillectomy, Hx Umbilical H ernia. Denies: Hx Cardiac Surgery - Immunizations Hx Diphtheria, Pertussis, Tetanus Vaccination: Yes Hx Pneumococcal Vaccination: 04/24/10 Review of Systems - Review of Systems Notes: REVIEW OF SYSTEMS: CONSTITUTIONAL : Denies fever. EENT: Denies eye, ear, nose or mouth or throat pain or other symptoms. CARDIOVASCULAR: Denies chest pain. RESPIRATORY: Denies cough, chest congestion, or shortness of breath. GASTROINTESTINAL: Denies abdominal pain or nausea, vomiting, or diarrhea. GENITOURINARY: Denies difficulty or painful urinating, urinary frequency, blood in urine. MUSCULOSKELETAL: Denies back pain but complains of pain of the left side of her neck. No posterior midline pain. Denies joint pain or swelling. SKIN: Denies rash or skin lesions. NEUROLOGICAL: See HPI. Complains of pain of the left side of her head after falling and hitting it. No prior headache. ALL OTHER SYSTEMS REVIEWED AND NEGATIVE. Physical Exam - Vital signs Vitals: Resp 14 08/24/18 09:00 PHYSICAL EXAMINATION: GENERAL: Well-appearing, in no acute distress. HEAD: Tender swollen hematoma of the left parietal scalp. EYES: Pupils equal round and reactive to light, extraocular movements intact. ENT: oropharynx clear without exudates. Moist mucous membranes. NECK: Normal range of motion, supple. Tender left side of the neck muscles. No posterior midline tenderness of the C-spine. LUNGS: Breath sounds clear and equal bilaterally. No rib tenderness. HEART: Regular rate and rhythm without murmurs. ABDOMEN: Soft, nontender. No guarding or rebound. No masses. BACK: No tenderness throughout entire back. EXTREMITIES: Normal range of motion without pain. NEUROLOGICAL: Normal speech. Attempted to stand patient at bedside and she was very unsteady on her feet and unable to ambulate at this time. Normal sensory, motor, and reflex exams. PSYCH: Normal mood, normal affect. SKIN: Warm, dry, no rashes. Course - Re-evaluation Re-evalutation: 08/24/18 11:47 Blood pressure was up somewhat during her stay in the department, blood pressure was most recently 181/88. Otherwise, patient was stable. Will be calling her primary care for admission and further evaluation of her apparent syncope with possible stroke or TIA. - Vital Signs Vital signs: Temp Pulse Resp BP Pulse Ox 97.9 F 12 177/79 H 99 08/24/18 09:02 08/24/18 09:03 08/24/18 10:48 08/24/18 09:03 - Laboratory Result Diagrams: 08/24/18 10:07 08/24/18 10:07 Laboratory results interpreted by me: 08/24/18 08/24/18 10:07 10:07 WBC 2.9 L Hgb 10.5 L Hct 33.0 L MCH 25.5 L MCHC 31.7 L RDW 15.6 H Chloride 111 H Creatinine 1.51 H Est GFR ( Amer) 41 L Est GFR (Non-Af Amer) 34 L Glucose 111 H AST 38 H - Diagnostic Test Radiology reviewed: Reports reviewed - CT scan of the head and C-spine were both normal. - EKG Interpretation by Me EKG shows normal: Sinus rhythm Rate: Normal Rhythm: NSR Additional EKG results interpreted by me: 08/24/18 11:40 Patient's EKG shows an intraventricular conduction defect. Also right bundle branch block. LVH. Discharge - Discharge Clinical Impression: Syncope, Contusion of head, TIA (transient ischemic attack) Condition: Stable Disposition: ADMITTED INPATIENT Admitting Provider: [facility] Unit Admitted: IMCU Referrals: DINAH FLAHERTY MD [ACTIVE STAFF] - Follow up as needed
--- NOTE | 2018-08-24 10:06 | RADIOLOGY REPORT (SQ) ---
EXAM DESCRIPTION: CT HEAD WITHOUT COMPLETED DATE/TIME: 08/24/2018 9:55 am REASON FOR STUDY: Syncope/fall, hit left parietal head, hematoma COMPARISON: None. TECHNIQUE: Axial images acquired through the brain without intravenous contrast. Images reviewed wi th bone, brain and subdural windows. Additional sagittal and coronal reconstructions were generated. Images stored on PACS. All CT scanners at this facility use dose modulation, iterative reconstruction, and/or weight based d osing when appropriate to reduce radiation dose to as low as reasonably achievable (ALARA). [facility]: Dose Right [facility]: CareDose [facility]: Dose Right [facility]: Teradose 4D [facility]: [employer] RADIATION DOSE: CT Rad equipment meets quality standard of care and radiation dose reduction techniq ues were employed. CTDIvol: 53.2 mGy. DLP: 1070 mGy-cm. mGy. LIMITATIONS: None. FINDINGS: VENTRICLES: Normal size and contour. CEREBRUM: No masses. No hemorrhage. No midline shift. No evidence for acute infarction. Normal gra y/white matter differentiation. No areas of low density in the white matter. CEREBELLUM: No masses. No hemorrhage. No alteration of density. No evidence for acute infarction. EXTRAAXIAL SPACES: No fluid collections. No masses. ORBITS AND GLOBE: No intra- or extraconal masses. Normal contour of globe without masses. CALVARIUM: No fracture. PARANASAL SINUSES: No fluid or mucosal thickening. SOFT TISSUES: Left parietal scalp hematoma. OTHER: No other significant finding. IMPRESSION: NORMAL BRAIN CT WITHOUT CONTRAST. EVIDENCE OF ACUTE STROKE: NO. COMMENT: Quality ID # [id number]: Final reports with documentation of one or more dose reduction techniques (e.g., Automated exposure control, adjustment of the mA and/or kV according to patient size, use of iterative reconstruction technique) TECHNICAL DOCUMENTATION: JOB ID: [id number] [employer]- All Rights Reserved Reading location - IP/workstation name: [email or web address]
--- NOTE | 2018-08-24 10:07 | RADIOLOGY REPORT (SQ) ---
EXAM DESCRIPTION: CT CERVICAL SPINE WITHOUT COMPLETED DATE/TIME: 08/24/2018 9:55 am REASON FOR STUDY: Syncope, fall, hit left head, pain left neck COMPARISON: None. TECHNIQUE: Axial images acquired through the cervical spine without intravenous contrast. Images re viewed with lung, soft tissue and bone windows. Reconstructed coronal and sagittal MPR images review ed. Images stored on PACS. All CT scanners at this facility use dose modulation, iterative reconstruction, and/or weight based d osing when appropriate to reduce radiation dose to as low as reasonably achievable (ALARA). [facility]: Dose Right [facility]: CareDose [facility]: Dose Right [facility]: Teradose 4D [facility]: [employer] RADIATION DOSE: CT Rad equipment meets quality standard of care and radiation dose reduction techniq ues were employed. CTDIvol: 23.0 mGy. DLP: 389 mGy-cm. mGy. LIMITATIONS: None. FINDINGS: ALIGNMENT: Reversal of the lordotic curve. MINERALIZATION: Normal. VERTEBRAL BODIES: No fractures or dislocation. DISCS: Multilevel disc space narrowing with osteophytes. FACETS, LATERAL MASSES, POSTERIOR ELEMENTS: Facet arthropathy. No fractures. No dislocation. No ac [place] findings. HARDWARE: None in the spine. VISUALIZED RIBS: No fractures. LUNG APICES AND SOFT TISSUES: No significant or acute findings. OTHER: No other significant finding. IMPRESSION: CHRONIC DEGENERATIVE CHANGES. NO ACUTE FINDINGS. TECHNICAL DOCUMENTATION: JOB ID: [id number] Quality ID # [id number]: Final reports with documentation of one or more dose reduction techniques (e.g., Au tomated exposure control, adjustment of the mA and/or kV according to patient size, use of iterative reconstruction technique) 2010 [employer]- All Rights Reserved Reading location - IP/workstation name: [email or web address]
[2018-08-24 10:22] LABS: ABSOLUTE LYMPHOCYTES (AUTO) 0.8 10^3/uL (0.5-4.7); ABSOLUTE MONOCYTES (AUTO) 0.3 10^3/uL (0.1-1.4); ABSOLUTE NEUT (AUTO) 1.7 10^3/uL (1.7-8.2); BASOPHILS % (AUTO) 0.5 % (0-2); EOSINOPHILS % (AUTO) 1.5 % (0-6); HEMOGLOBIN 10.5 g/dL (12.0-15.5); LYMPHOCYTES % (AUTO) 29.4 % (13-45); MEAN CORPUSCULAR HEMOGLOBIN 25.5 pg (27.0-33.4); MEAN CORPUSCULAR HGB CONC 31.7 g/dL (32.0-36.0); MEAN CORPUSCULAR VOLUME 80 fl (80-97); MONOCYTES % (AUTO) 11.5 % (3-13); PLATELET COUNT 167 10^3/uL (150-450); RED BLOOD COUNT 4.11 10^6/uL (3.72-5.28); RED CELL DISTRIBUTION WIDTH 15.6 % (11.5-14.0); SEGMENTED NEUTROPHILS % (AUTO) 57.1 % (42-78); TOTAL CELLS COUNTED % (AUTO) 100 %; WHITE BLOOD COUNT 2.9 10^3/uL (4.0-10.5)
[2018-08-24 10:25] LABS: INTERNATIONAL RATION (INR) 1.12; PROTHROMBIN TIME 14.5 SEC (11.4-15.4)
[2018-08-24 10:43] LABS: ALANINE AMINOTRANSFERASE 19 U/L (9-52); ALBUMIN 3.7 g/dL (3.5-5.0); ALKALINE PHOSPHATASE 117 U/L (38-126); ANION GAP 8 (5-19); ASPARTATE AMINO TRANSFERASE 38 U/L (14-36); BILIRUBIN,DIRECT 0.3 mg/dL (0.0-0.4); BILIRUBIN,TOTAL 0.4 mg/dL (0.2-1.3); BLOOD UREA NITROGEN 19 mg/dL (7-20); CALCIUM 9.1 mg/dL (8.4-10.2); CARBON DIOXIDE 23 mmol/L (22-30); CHLORIDE 111 mmol/L (98-107); CREATINE KINASE 94 U/L (30-135); GLUCOSE 111 mg/dL (75-110); POTASSIUM 4.6 mmol/L (3.6-5.0); SODIUM 141.5 mmol/L (137-145); TOTAL PROTEIN 7.4 g/dL (6.3-8.2)
[2018-08-24 10:54] LABS: CREATINE KINASE MB 0.62 ng/mL (<4.55)
[2018-08-24 10:55] LABS: TROPONIN I < 0.012 ng/mL
[2018-08-24] MEDS ORDERED: ACETAMINOPHEN 325 MG TABLET PO ONE (12:57)
--- NOTE | 2018-08-24 16:51 | RADIOLOGY REPORT (SQ) ---
EXAM DESCRIPTION: U/S RETROPERITON LTD COMPLETED DATE/TIME: 08/24/2018 4:38 pm REASON FOR STUDY: kidney failure COMPARISON: None. TECHNIQUE: Dynamic and static grayscale images acquired of the kidneys and bladder and recorded on P ACS. Additional selected color Doppler and spectral images recorded. LIMITATIONS: None. FINDINGS: RIGHT KIDNEY: Atrophic, 7.5 cm length. Increased cortical echogenicity. No solid or suspic ious masses. No hydronephrosis. No calcifications. LEFT KIDNEY: Atrophic, 7.3 cm length. Increased cortical echogenicity. No solid or suspicious masses . No hydronephrosis. No calcifications. BLADDER: Decompressed. OTHER: No other significant finding. IMPRESSION: CHRONIC MEDICAL RENAL DISEASE. NO HYDRONEPHROSIS. TECHNICAL DOCUMENTATION: JOB ID: [id number]-72 2010 [employer]- All Rights Reserved Reading location - IP/workstation name: [place]
[2018-08-24] MEDS ORDERED: DICYCLOMINE HCL 20 MG TABLET PO PRN (17:48)
[2018-08-24] MEDS: BUTALB/ACETAMINOPHEN/CAFFEINE 1 TAB EACH PO PRN (18:38)
[2018-08-24] MEDS: LOSARTAN POTASSIUM 50 MG TABLET PO SCH (18:39)
[2018-08-24] MEDS: CLOPIDOGREL BISULFATE 75 MG TABLET PO SCH (18:39)
[2018-08-24] MEDS: METOPROLOL TARTRATE 25 MG TABLET PO SCH (18:40)
[2018-08-24] MEDS: CETIRIZINE 5 MG TABLET PO SCH (18:40)
[2018-08-24] MEDS: AMLODIPINE BESYLATE 5 MG TABLET PO SCH (18:40)
--- NOTE | 2018-08-24 19:26 | PDOC H&P ---
History of Present Illness Admission Date/PCP: 08/24/18 12:34 RYDER HERNANDEZ MD History of Present Illness: ELISABETH SUNG is a 72 year old female,She came to the emergency room for evaluation of loss of consciousness,, She said while she was walking to an appointment this morning she experienced spinning sensation of the environment and she lost consciousness.She has had this episode before in the past.She has CT scan of the head in the emergency room, this was negative for any acute pathology.She also stated that she has a history of stroke in the past, in the emergency room she was found to have severe hypertension. Brainstem versus cerebellar infarction was suspected as a potential etiology of the vertigo MRI brain was obtained it was negative. Past Medical History Cardiac Medical History: Reports: Coronary Artery Disease, Myocardial Infarction - x 4, Hyperlipidema, Hypertension, Other - Total she has an irregular heartbeat. Pulmonary Medical History: Reports: Bronchitis, Pneumonia, Sleep Apnea Endocrine Medical History: Reports: Diabetes Mellitus Type 2 GI Medical History: Reports: Gastroesophageal Reflux Disease Musculoskeltal Medical History: Reports: Arthritis Psychiatric Medical History: Reports: Depression Hematology: Reports: Anemia Past Surgical History Past Surgical History: Reports: Appendectomy, Cardiac Catheterization, Coronary Stent, Hysterectomy, Orthopedic Surgery - Bilateral total knee replacements. Bilateral shoulder surgeries., Tonsillectomy Social History Smoking Status: Unknown if Ever Smoked Frequency of Alcohol Use: None Hx Recreational Drug Use: No Drugs: None Hx Prescription Drug Abuse: No - Advance Directive Resuscitation Status: Full Code Family History Family History: Reviewed & Not Pertinent, CAD, Hypertension, Malignancy Parental Family History Reviewed: Yes Children Family History Reviewed: Yes Sibling(s) Family History Reviewed.: Yes Medication/Allergy Home Medications: Amlodipine Besylate [Norvasc 5 mg Tablet] 5 mg PO DAILY 08/24/18 Atorvastatin Calcium [Lipitor 20 mg Tablet] 20 mg PO QHS 08/24/18 Clopidogrel Bisulfate [Plavix 75 mg Tablet] 75 mg PO DAILY 08/24/18 Dicyclomine HCl [Bentyl 20 mg Tablet] 20 mg PO Q8HP PRN 08/24/18 Levocetirizine Dihydrochloride [Xyzal] 5 mg PO QPM 08/24/18 Losartan Potassium [Cozaar 100 mg Tablet] 100 mg PO DAILY 08/24/18 Metoprolol Tartrate [Lopressor 25 mg Tablet] 25 mg PO Q12 08/24/18 Nitroglycerin [Nitrostat 0.4 mg (1/150 Gr) Tabs 25/Bottle] 0.4 mg PO Q5MP PRN 08/24/18 Ranolazine [Ranexa 500 mg Tab.sr] 500 mg PO Q12 08/24/18 Tramadol HCl [Ultram 50 mg Tablet] 50 mg PO Q12HP PRN 08/24/18 Allergies/Adverse Reactions: betamethasone [Betamethasone] Allergy (Intermediate, Verified 02/27/18 15:09) burning skin ceftriaxone sodium [From Rocephin] Allergy (Intermediate, Verified 02/27/18 15:09) Urticaria ciprofloxacin [From Cipro] Allergy (Intermediate, Verified 02/27/18 15:09) Urticaria clindamycin [Clindamycin] Allergy (Intermediate, Verified 02/27/18 15:09) Urticaria clotrimazole [Clotrimazole] Allergy (Intermediate, Verified 02/27/18 15:09) burning skin diphenhydramine HCl [From Benadryl] Allergy (Intermediate, Verified 02/27/18 15:09) Urticaria doxycycline [Doxycycline] Allergy (Intermediate, Verified 02/27/18 15:09) Urticaria latex [Latex] Allergy (Intermediate, Verified 02/27/18 15:09) Urticaria metronidazole [From Flagyl] Allergy (Intermediate, Verified 02/27/18 15:09) Urticaria oxycodone [Oxycodone] Allergy (Intermediate, Verified 02/27/18 15:09) Penicillins Allergy (Intermediate, Verified 02/27/18 15:09) Urticaria Sulfa (Sulfonamide Antibiotics) Allergy (Intermediate, Verified 02/27/18 15:09) Urticaria hydrocodone bitartrate [From Vicodin] Allergy (Verified 02/27/18 15:09) mupirocin [From Bactroban] Allergy (Verified 02/27/18 15:09) aspirin [Aspirin] Adverse Reaction (Mild, Verified 02/27/18 15:09) Nausea PAPER TAPE Allergy (Uncoded 02/27/18 15:09) Blisters Review of Systems Constitutional: ABSENT: chills, fever(s), headache(s), weight gain, weight loss Eyes: ABSENT: visual disturbances Ears: ABSENT: hearing changes Cardiovascular: ABSENT: chest pain, dyspnea on exertion, edema, orthropnea, palpitations Respiratory: ABSENT: cough, hemoptysis Gastrointestinal: ABSENT: abdominal pain, constipation, diarrhea, hematemesis, hematochezia, nausea, vomiting Genitourinary: ABSENT: dysuria, hematuria Musculoskeletal: ABSENT: joint swelling Integumentary: ABSENT: rash, wounds Neurological: PRESENT: dizziness, syncope. ABSENT: abnormal gait, abnormal speech, confusion, focal weakness Psychiatric: ABSENT: anxiety, depression, homidical ideation, suicidal ideation Endocrine: ABSENT: cold intolerance, heat intolerance, menstrual abnormalities, polydipsia, polyuria Hematologic/Lymphatic: ABSENT: easy bleeding, easy bruising, lymphadenopathy Physical Exam Vital Signs: Temp Pulse Resp BP Pulse Ox 98.0 F 76 18 122/93 H 100 08/24/18 17:33 08/24/18 17:33 08/24/18 17:33 08/24/18 17:33 08/24/18 17:33 Intake & Output 08/23/18 08/24/18 08/25/18 06:59 06:59 06:59 Intake Total 0 Balance 0 Weight 115.5 kg General appearance: PRESENT: no acute distress Head exam: PRESENT: atraumatic, normocephalic Eye exam: PRESENT: PERRLA Ear exam: PRESENT: normal external ear exam Mouth exam: PRESENT: moist, tongue midline Neck exam: PRESENT: full ROM Respiratory exam: PRESENT: clear to auscultation radha Cardiovascular exam: PRESENT: RRR, +S1, +S2 Pulses: PRESENT: normal dorsalis pedis pul, +2 pedal pulses bilateral Vascular exam: PRESENT: normal capillary refill GI/Abdominal exam: PRESENT: normal bowel sounds, soft Rectal exam: PRESENT: deferred Neurological exam: PRESENT: alert, CN II-XII grossly intact Psychiatric exam: PRESENT: appropriate affect, normal mood Skin exam: PRESENT: dry, intact, warm Results Laboratory Results: 08/24/18 10:07 08/24/18 10:07 08/24/18 08/24/18 10:07 10:07 WBC 2.9 L RBC 4.11 Hgb 10.5 L Hct 33.0 L MCV 80 MCH 25.5 L MCHC 31.7 L RDW 15.6 H Plt Count 167 Seg Neutrophils % 57.1 Lymphocytes % 29.4 Monocytes % 11.5 Eosinophils % 1.5 Basophils % 0.5 Absolute Neutrophils 1.7 Absolute Lymphocytes 0.8 Absolute Monocytes 0.3 Absolute Eosinophils 0.0 Absolute Basophils 0.0 Sodium 141.5 Potassium 4.6 Chloride 111 H Carbon Dioxide 23 Anion Gap 8 BUN 19 Creatinine 1.51 H Est GFR ( Amer) 41 L Est GFR (Non-Af Amer) 34 L Glucose 111 H Calcium 9.1 Total Bilirubin 0.4 AST 38 H ALT 19 Alkaline Phosphatase 117 Total Protein 7.4 Albumin 3.7 08/24/18 08/24/18 10:07 10:07 Creatine Kinase 94 CK-MB (CK-2) 0.62 Troponin I < 0.012 Impressions: Renal Ultrasound 08/24/18 00:00 IMPRESSION: CHRONIC MEDICAL RENAL DISEASE. NO HYDRONEPHROSIS. Cervical Spine CT 08/24/18 09:18 IMPRESSION: CHRONIC DEGENERATIVE CHANGES. NO ACUTE FINDINGS. Head CT 08/24/18 09:18 IMPRESSION: NORMAL BRAIN CT WITHOUT CONTRAST. EVIDENCE OF ACUTE STROKE: NO. Assessment & Plan - Diagnosis (1) Vertigo Is this a current diagnosis for this admission?: Yes Plan: She has vertigo, there is no evidence of stroke, she has had this previously (2) Hypertensive urgency Is this a current diagnosis for this admission?: Yes Plan: Continue home medications (3) Chronic kidney disease, stage 3 Is this a current diagnosis for this admission?: Yes
[2018-08-24] MEDS: TRAMADOL HCL 50 MG TABLET PO PRN (20:47)
[2018-08-24] MEDS: RANOLAZINE 500 MG TAB.SR.12H PO SCH (21:41)
--- NOTE | 2018-08-24 21:42 | RADIOLOGY REPORT (SQ) ---
MR BRAIN WITHOUT IV CONTRAST EXAM DATE: 08/24/2018 12:00 AM CDT HISTORY: Vertigo. Evaluate for cerebellar stroke . COMPARISON: CT scan from earlier the same day. TECHNIQUE: Multisequence, multiplanar MR imaging of the brain was performed without the administration of intravenous gadolinium. FINDINGS: The ventricles and sulci are age-appropriate. Right There is no acute infarction, intracranial hemorrhage, extra-axial fluid collection, or mass. The brainstem, posterior fossa, and cervicomedullary junction are preserved. The intravascular flow voids are preserved. The orbits are unremarkable. No abnormality of the skull base or calvarium is seen. The paranasal sinuses are clear. IMPRESSION: 1. No acute infarction. 2. Mild chronic microvascular ischemia.
[2018-08-24] MEDS ORDERED: ATORVASTATIN CALCIUM 20 MG TABLET PO SCH (22:00)
[2018-08-25] MEDS: BUTALB/ACETAMINOPHEN/CAFFEINE 1 TAB EACH PO PRN ×4 (02:25→18:30)
[2018-08-25 03:13] LABS: APPEARANCE,URINE SLIGHTLY-CLOUDY; BILIRUBIN,URINE NEGATIVE (NEGATIVE); COLOR,URINE YELLOW; GLUCOSE, URINE NEGATIVE (NEGATIVE); KETONES,URINE NEGATIVE (NEGATIVE); LEUKOCYTE ESTERASE,URINE TRACE (NEGATIVE); NITRITE,URINE NEGATIVE (NEGATIVE); PROTEIN,URINE NEGATIVE (NEGATIVE); URINE SPECIFIC GRAVITY 1.013; UROBILINOGEN,URINE NEGATIVE mg/dL (<2.0)
[2018-08-25] MEDS: METOPROLOL TARTRATE 25 MG TABLET PO SCH ×2 (06:05→17:06)
[2018-08-25] MEDS: RANOLAZINE 500 MG TAB.SR.12H PO SCH ×2 (06:05→17:05)
[2018-08-25] MEDS: AMLODIPINE BESYLATE 5 MG TABLET PO SCH (10:49)
[2018-08-25] MEDS: CLOPIDOGREL BISULFATE 75 MG TABLET PO SCH (10:49)
[2018-08-25] MEDS: LOSARTAN POTASSIUM 50 MG TABLET PO SCH (10:50)
[2018-08-25] MEDS: TRAMADOL HCL 50 MG TABLET PO PRN (14:32)
[2018-08-25] MEDS: CETIRIZINE 5 MG TABLET PO SCH (17:06)
--- NOTE | 2018-08-25 18:50 | EKG REPORT ---
SEVERITY:- ABNORMAL ECG - SINUS RHYTHM IVCD, CONSIDER ATYPICAL RBBB, LAFB ANTERIOR Q WAVES, POSSIBLY DUE TO LVH : Confirmed by: Brennen Stanton MD 25-Aug-2018 18:49:52
[2018-08-25 19:55] VITALS: BP 143/72
--- NOTE | 2018-08-25 20:58 | PDOC DISCHARGE SUMMARY ---
General - Admit/Disc Date/PCP Admission Date/Primary Care Provider: 08/24/18 12:34 RYDER HERNANDEZ MD Discharge Date: 08/25/18 - Discharge Diagnosis (1) Vertigo Is this a current diagnosis for this admission?: Yes (2) Hypertensive urgency Is this a current diagnosis for this admission?: Yes (3) Chronic kidney disease, stage 3 Is this a current diagnosis for this admission?: Yes - Additional Information Resuscitation Status: Full Code Discharge Diet: As Tolerated Discharge Activity: Activity As Tolerated, Balance Activity w/Rest, Energy Conservation Home Medications: Amlodipine Besylate [Norvasc 5 mg Tablet] 5 mg PO DAILY 08/24/18 Atorvastatin Calcium [Lipitor 20 mg Tablet] 20 mg PO QHS 08/24/18 Clopidogrel Bisulfate [Plavix 75 mg Tablet] 75 mg PO DAILY 08/24/18 Dicyclomine HCl [Bentyl 20 mg Tablet] 20 mg PO Q8HP PRN 08/24/18 Levocetirizine Dihydrochloride [Xyzal] 5 mg PO QPM 08/24/18 Losartan Potassium [Cozaar 100 mg Tablet] 100 mg PO DAILY 08/24/18 Metoprolol Tartrate [Lopressor 25 mg Tablet] 25 mg PO Q12 08/24/18 Nitroglycerin [Nitrostat 0.4 mg (1/150 Gr) Tabs 25/Bottle] 0.4 mg PO Q5MP PRN 08/24/18 Ranolazine [Ranexa 500 mg Tab.sr] 500 mg PO Q12 08/24/18 Tramadol HCl [Ultram 50 mg Tablet] 50 mg PO Q12HP PRN 08/24/18 History of Present Illness History of Present Illness: ELISABETH SUNG is a 72 year old female,She came to the emergency room for evaluation of loss of consciousness,, She said while she was walking to an appointment this morning she experienced spinning sensation of the environment and she lost consciousness.She has had this episode before in the past.She has CT scan of the head in the emergency room, this was negative for any acute pathology.She also stated that she has a history of stroke in the past, in the e mergency room she was found to have severe hypertension. Brainstem versus cerebellar infarction was suspected as a potential etiology of the vertigo MRI brain was obtained it was negative. Hospital Course Hospital Course: Patient was admitted for the management of vertiginous symptoms, stroke was suspected especially cerebellar stroke, MRI brain was obtained it was negative she was observed for 24 hours she also had hypertensive urgency that was treated with her regular blood pressure medication. Physical Exam Vital Signs: Temp Pulse Resp BP Pulse Ox 98.0 F 60 16 143/72 H 98 08/25/18 19:55 08/25/18 19:55 08/25/18 19:55 08/25/18 19:36 08/25/18 19:55 Intake & Output 08/24/18 08/25/18 08/26/18 06:59 06:59 06:59 Intake Total 0 650 Balance 0 650 Weight 112.7 kg General appearance: PRESENT: no acute distress, well-developed, well-nourished Head exam: PRESENT: atraumatic, normocephalic Eye exam: PRESENT: conjunctiva pink, EOMI, PERRLA Ear exam: PRESENT: normal external ear exam Mouth exam: PRESENT: moist, tongue midline Neck exam: PRESENT: full ROM Respiratory exam: PRESENT: clear to auscultation radha Cardiovascular exam: PRESENT: RRR, +S1, +S2 Pulses: PRESENT: normal dorsalis pedis pul, +2 pedal pulses bilateral Vascular exam: PRESENT: normal capillary refill GI/Abdominal exam: PRESENT: normal bowel sounds, soft Rectal exam: PRESENT: deferred Neurological exam: PRESENT: alert, CN II-XII grossly intact Psychiatric exam: PRESENT: appropriate affect, normal mood Skin exam: PRESENT: dry, intact, warm Results Laboratory Results: 08/24/18 10:07 08/24/18 10:07 08/25/18 02:30 Urine Color YELLOW Urine Appearance SLIGHTLY-CLOUDY Urine pH 6.0 Ur Specific [place] 1.013 Urine Protein NEGATIVE Urine Glucose (UA) NEGATIVE Urine Ketones NEGATIVE Urine Blood NEGATIVE Urine Nitrite NEGATIVE Ur Leukocyte Esterase TRACE H Urine WBC (Auto) 8 Urine RBC (Auto) 2 08/24/18 08/24/18 10:07 10:07 Creatine Kinase 94 CK-MB (CK-2) 0.62 Troponin I < 0.012 Impressions: Head MRI 08/24/18 00:00 IMPRESSION: 1. No acute infarction. 2. Mild chronic microvascular ischemia. Renal Ultrasound 08/24/18 00:00 IMPRESSION: CHRONIC MEDICAL RENAL DISEASE. NO HYDRONEPHROSIS. Cervical Spine CT 08/24/18 09:18 IMPRESSION: CHRONIC DEGENERATIVE CHANGES. NO ACUTE FINDINGS. Head CT 08/24/18 09:18 IMPRESSION: NORMAL BRAIN CT WITHOUT CONTRAST. EVIDENCE OF ACUTE STROKE: NO. Qualifiers - * PATIENT BEING DISCHARGED WITH ANY OF THE FOLLOWING DIAGNOSIS: No VTE patient discharged on overlapping Therapy?: No Reason(s) for not prescribing Overlap Therapy:: Not indicated Stroke Pt being discharged on Anti-thrombolytic therapy?: No Reason(s) for not prescribing Anti-thrombolytic therapy:: Not indicated Stroke Pt being discharged on Anti-coagulation therapy?: No Reason(s) for not prescribing Anti-coagulation therapy:: Not indicated Stroke Pt being discharged on Statins?: No Reason(s) for not prescribing Statins therapy:: Not indicated LA Pt being discharged on Aspirin therapy?: No Reason(s) for not prescribing Aspirin therapy:: Not indicated LA Pt being discharged on Statins?: No Reason(s) for not prescribing Statin therapy:: Not indicated LA Pt discharged ACEI/ARBS?: No Reason(s) for not prescribing ACEI/ARBS:: Not indicated Acute Heart Failure - Is this a Heart Failure Patient?: No e) For LVEF <35%, discharged on Aldosterone antagonist?: N/A (LVEF > or = 35%)
== END 2018-08-25 20:45 | disposition home or self-care (01) ==
LOC: ER 08:47 → INTOOBSV 12:34 → EH 12:34 → 3W 17:29
PROVIDERS: ADMIT Internal Medicine; ATTEND Internal Medicine
DX: R42 Dizziness and giddiness (principal); I16.0 Hypertensive urgency; I12.9 Hypertensive chronic kidney disease with stage 1 through stage 4 chronic kidney disease, or unspecified chronic kidney disease; E11.22 Type 2 diabetes mellitus with diabetic chronic kidney disease; N18.3 Chronic kidney disease, stage 3 (moderate); I25.10 Atherosclerotic heart disease of native coronary artery without angina pectoris; I69.354 Hemiplegia and hemiparesis following cerebral infarction affecting left non-dominant side; R26.81 Unsteadiness on feet; S00.03XA Contusion of scalp, initial encounter; W19.XXXA Unspecified fall, initial encounter; R51 Headache; I45.10 Unspecified right bundle-branch block; I45.89 Other specified conduction disorders; I25.2 Old myocardial infarction; Z90.49 Acquired absence of other specified parts of digestive tract; Z96.653 Presence of artificial knee joint, bilateral; Z79.899 Other long term (current) drug therapy; Z79.02 Long term (current) use of antithrombotics/antiplatelets
CPT/HCPCS: 93005; 99284; 36415; 82553; 82550; 85025; 85610; 80053; 81001; 84484; 70551; 76775; 70450; 72125; 93010; G0378; A9270 ×17; J3490

== ENCOUNTER → 2018-09-15 | Outpatient (CLI) | payer MEDICARE, MEDICAID ==
[2018-09-15 09:45] LABS: ABSOLUTE LYMPHOCYTES (AUTO) 0.9 10^3/uL (0.5-4.7); ABSOLUTE MONOCYTES (AUTO) 0.3 10^3/uL (0.1-1.4); ABSOLUTE NEUT (AUTO) 1.1 10^3/uL (1.7-8.2); BASOPHILS % (AUTO) 0.3 % (0-2); EOSINOPHILS % (AUTO) 1.8 % (0-6); HEMATOCRIT 34.2 % (36.0-47.0); MEAN CORPUSCULAR HEMOGLOBIN 26.5 pg (27.0-33.4); MEAN CORPUSCULAR HGB CONC 32.1 g/dL (32.0-36.0); MEAN CORPUSCULAR VOLUME 83 fl (80-97); MONOCYTES % (AUTO) 12.2 % (3-13); PLATELET COUNT 184 10^3/uL (150-450); RED BLOOD COUNT 4.14 10^6/uL (3.72-5.28); SEGMENTED NEUTROPHILS % (AUTO) 47.7 % (42-78); TOTAL CELLS COUNTED % (AUTO) 100 %; WHITE BLOOD COUNT 2.2 10^3/uL (4.0-10.5)
[2018-09-15 10:06] LABS: ANION GAP 7 (5-19); BLOOD UREA NITROGEN 21 mg/dL (7-20); CALCIUM 9.1 mg/dL (8.4-10.2); CARBON DIOXIDE 27 mmol/L (22-30); CHLORIDE 104 mmol/L (98-107); GLUCOSE 139 mg/dL (75-110); IRON(TIBC) 70.9 ug/dL (37-170); POTASSIUM 5.6 mmol/L (3.6-5.0)
== END ==
LOC: OD 09:08
PROVIDERS: ATTEND Internal Medicine Nephrology
DX: I12.9 Hypertensive chronic kidney disease with stage 1 through stage 4 chronic kidney disease, or unspecified chronic kidney disease (principal); N18.3 Chronic kidney disease, stage 3 (moderate); D63.1 Anemia in chronic kidney disease; N25.81 Secondary hyperparathyroidism of renal origin
CPT/HCPCS: 36415; 80048; 82728; 83540; 83550; 83970; 85025

== ENCOUNTER → 2018-09-19 | Outpatient (CLI) | payer MEDICARE, MEDICAID | LOC: OD 08:56 | PROVIDERS: ATTEND Internal Medicine Nephrology | DX: E87.5 Hyperkalemia (principal) | CPT/HCPCS: 36415; 84132 ==

== ENCOUNTER → 2018-10-06 | Outpatient (CLI) | payer MEDICARE, MEDICAID ==
--- NOTE | 2018-10-06 10:31 | WOMENS IMAGING REPORT ---
EXAM DESCRIPTION: BONE DENSITY HIP/SPINE COMPLETED DATE/TIME: 10/06/2018 9:45 am REASON FOR STUDY: Z78.0 SCREENING FOR OSTEOPOROSIS Z78.0 ASYMPTOMATIC MENOPAUSAL STATE Z12.31 ENCN TR SCREEN MAMMOGRAM FOR MALIGNANT NEOPLASM OF [place] COMPARISON: 06/05/2010 TECHNIQUE: Dual-Energy X-ray Absorptiometry (DEXA) of the AP Spine and Hip. LIMITATIONS: None. FINDINGS: LUMBAR SPINE: The bone mineral density (BMD) measured from L1-L4 in the AP projection correlates with a T-score of -0.4, which is normal as defined by the World Health Organization. BMD Change vs Baseline: -3.6% HIP: The bone mineral density (BMD) measured in the left hip correlates with a T-score of -2.0 in the neck , which is osteopenia as defined by the World Health Organization. BMD Change vs Baseline: -10.0% 10 year Fracture Risk Assessment: Major Osteoporotic Fracture: 10% without prior fracture. 16% with prior fracture. Hip Fracture: 1.9% without prior fracture. 2.9% with prior fracture. IMPRESSION: 1. LUMBAR SPINE WHO CLASSIFICATION: NORMAL. 2. HIP WHO CLASSIFICATION: OSTEOPENIA. OVERALL ASSESSMENT: WHO CLASSIFICATION: OSTEOPENIA. COMMENT: The World Health Organization defines low BMD as follows: T-score: Normal: Greater than -1.0 Osteopenia: Between -1.0 and -2.5 Osteoporosis: Less than -2.5 without fractures Established osteoporosis: Less than -2.5 with fractures In general, you may wish to consider: Diagnosis Treatment Follow-up DEXA Normal BMD Prevention 2-3 years Osteopenia Prevention/Therapy 1-2 years Osteoporosis Therapy Yearly TECHNICAL DOCUMENTATION: JOB ID: [id number]- All Rights Reserved Reading location - IP/workstation name: [facility]
--- NOTE | 2018-10-06 10:43 | WOMENS IMAGING REPORT ---
EXAM DESCRIPTION: 3D SCREENING MAMMO BILAT COMPLETED DATE/TIME: 10/06/2018 9:45 am REASON FOR STUDY: Z12.31 SCREENING MAMMO Z78.0 ASYMPTOMATIC MENOPAUSAL STATE Z12.31 ENCNTR SCREEN MAMMOGRAM FOR MALIGNANT NEOPLASM OF [place] COMPARISON: Digital tomosynthesis bilateral screening mammograms dated 09/01/2017, 08/26/2016 and digi deanna bilateral screening mammogram dated 06/26/2015. EXAM PARAMETERS: Standard craniocaudal and mediolateral oblique views of each breast recorded using digital acquisition and breast tomosynthesis. Read with the assistance of CAD. .[facility] - [employer] Operator Version 9.2 LIMITATIONS: None. FINDINGS: RIGHT BREAST MASSES: No suspicious masses. CALCIFICATIONS: Small group of calcifications in the upper mid breast, 4-5.0 cm from the nipple. ARCHITECTURAL DISTORTION: None. DEVELOPING DENSITY: None. ASYMMETRY: None noted. OTHER: No other significant findings. LEFT BREAST MASSES: No suspicious masses. CALCIFICATIONS: No new or suspicious calcifications. ARCHITECTURAL DISTORTION: None. DEVELOPING DENSITY: None. ASYMMETRY: None noted. OTHER: No other significant findings. IMPRESSION: 1. Small group of calcifications in the upper mid Right breast. 0 Incomplete: Needs Additional Imaging Evaluation and/or prior Mammograms for Comparison. BREAST DENSITY: a. The breasts are almost entirely fatty. BIRAD: ASSESSMENT: 0 Incomplete: Needs Additional Imaging Evaluation and/or prior Mammograms for C omparison. RECOMMENDATION: 1. Special view mammogram Right breast: spot magnification compression views and t rue lateral. view. The patient will be contacted for additional imaging. COMMENT: The patient has been notified of the results by letter per MQSA requirements. Additional no tification policies are in place for contacting patient with suspicious or incomplete findings. Quality ID #[id number]: The [employer] recommends an annual screening mammogram for women aged 40 years or over. This facility utilizes a reminder system to ensure that all patients receive reminder letters, and/or direct phone calls for appointments. This includes reminders for routine scr eening mammograms, diagnostic mammograms, or other Breast Imaging Interventions when appropriate. Th is patient will be placed in the appropriate reminder system. TECHNICAL DOCUMENTATION: FINDING NUMBER: (1) ASSESSMENT: (1) JOB ID: [id number] [employer]- All Rights Reserved Reading location - IP/workstation name: [email or web address]
== END ==
LOC: WI 09:05
PROVIDERS: ATTEND Family Medicine
DX: Z12.31 Encounter for screening mammogram for malignant neoplasm of breast (principal); R92.0 Mammographic microcalcification found on diagnostic imaging of breast; Z78.0 Asymptomatic menopausal state; Z13.820 Encounter for screening for osteoporosis; M85.88 Other specified disorders of bone density and structure, other site
CPT/HCPCS: 77063; 77067; 77080

== ENCOUNTER → 2018-10-22 | Outpatient (CLI) | payer MEDICARE, MEDICAID ==
--- NOTE | 2018-10-23 10:31 | WOMENS IMAGING REPORT ---
EXAM DESCRIPTION: RIGHT DIAGNOSTIC MAMMO W/CAD COMPLETED DATE/TIME: 10/22/2018 9:21 am REASON FOR STUDY: R92.0 MAMMOGRAPHIC MICROCALCIFICATION FOUND ON DIAGNOSTIC IMAGING OF BREAST R92.0 MAMMOGRAPHIC MICROCALCIFICATION FOUND ON DX IMAGING OF COMPARISON: Multiple since 2010 EXAM PARAMETERS: Standard craniocaudal and mediolateral oblique images of the breast recorded with d igital acquisition. Read with the assistance of CAD. .[facility] - [employer] Traffic Coordinator Version 9.2 LIMITATIONS: None. FINDINGS: BREAST LATERALITY: Right MASSES: No suspicious masses. CALCIFICATIONS: Calcifications variable in size shape and density are present in the right breast 12 o'clock position about 8 cm from the nipple. These are in a linear distribution, are pleomorphic, an d worrisome for DCIS. Stereotactic biopsy of these calcifications is recommended (BI-RADS 5 Highly suggestive of malignancy. Biopsy should be performed in the absence of clinical contra-indication). ARCHITECTURAL DISTORTION: None. DEVELOPING DENSITY: None. ASYMMETRY: None noted. OTHER: No other significant findings. IMPRESSION: Calcifications right breast 12 o'clock position for which stereotactic biopsy is recomme nded BREAST DENSITY: b. There are scattered areas of fibroglandular density. BIRAD: ASSESSMENT: BI-RADS 5, highly suggestive of malignancy. Biopsy should be performed in the a bsence of clinical contraindication RECOMMENDATION: RECOMMENDED FOLLOW UP: Right breast stereotactic biopsy 12 o'clock position for calc ifications SPECIFIC INTERVENTION/IMAGING/CONSULTATION RECOMMENDED:Right breast stereotactic biopsy 12 o'clock po sition for calcifications COMMUNICATION:Patient notified by letter COMMENT: The patient has been notified of the results by letter per MQSA requirements. Additional no tification policies are in place for contacting patient with suspicious or incomplete findings. Quality ID #225: The [employer] recommends an annual screening mammogram for women aged 40 years or over. This facility utilizes a reminder system to ensure that all patients receive reminder letters, and/or direct phone calls for appointments. This includes reminders for routine scr eening mammograms, diagnostic mammograms, or other Breast Imaging Interventions when appropriate. Th is patient will be placed in the appropriate reminder system. TECHNICAL DOCUMENTATION: FINDING NUMBER: (1) ASSESSMENT: (1) JOB ID: [id number] [employer]- All Rights Reserved Reading location - IP/workstation name: [email or web address]
== END ==
LOC: WI 08:40
PROVIDERS: ATTEND Family Medicine
DX: R92.0 Mammographic microcalcification found on diagnostic imaging of breast (principal)

== ENCOUNTER → 2018-11-12 | Day surgery (SDC) | payer MEDICARE, MEDICAID ==
[~2018-11-12] MED LIST: LIDOCAINE 1%/EPINEPHRINE INJ 20 ML VIAL ONE
--- NOTE | 2018-11-12 09:50 | Discharge Summary ---
Discharge Summary (SDC) - Discharge Final Diagnosis: Microcalcifications right breast Date of Surgery: 11/12/18 Discharge Date: 11/12/18 Condition: Good Treatment or Instructions: Allow Band-Aid to fall off; take Motrin or Tylenol as needed pain; follow-up with [facility] in 1 to 2 weeks. Referrals: RYDER HERNANDEZ MD [Primary Care Provider] - Discharge Diet: As Tolerated Discharge Activity: Activity As Tolerated Home Care Assistance: None Needed Report the Following to Your Physician Immediately: Shortness of Breath, Increase in Pain, Fever over 101 Degrees
--- NOTE | 2018-11-12 09:55 | Operative Report ---
Operative Report DATE OF SURGERY: 11/12/18 PREOPERATIVE DIAGNOSIS: Abnormal microcalcifications central aspect right breast POSTOPERATIVE DIAGNOSIS: SAME OPERATION: 1. Stereotactically directed incision mammotomy core biopsies right breast. 2. Placement of clip marker right breast. 3. Interpretation the specimen radiograph. 4. Interpretation of intraoperative mammography SURGEON: OMA NGUYEN ANESTHESIA: Local TISSUE REMOVED OR ALTERED: Multiple cores right breast COMPLICATIONS: None ESTIMATED BLOOD LOSS: Scant INTRAOPERATIVE FINDINGS: See below PROCEDURE: Patient was taken from the waiting area to the radiology suite, where the patient was laid on the stereotactic table, the right breast placed into compression. The target microcalcifications in the central aspect of the right breast were localized using a CC approach, and pre-biopsy 15 and -15 views obtained. The surface of the exposed right breast was prepped with iodine, skin Allison x1% plain lidocaine, mammotomy made with a #11 blade, the mammotome advanced to the appropriate depth. Pre-and post fire films showed good alignment between the time and the target microcalcifications which were inferior to the mammotome. Proceeded to obtain approximately 10 cores primarily in the lower half of the biopsy field. Cores were removed from the suctioning apparatus, placed in a Mayo dish, and imaged with the specimen radiograph machine demonstrating acquisition of target microcalcifications. We felt the biopsying component of the procedure was complete. A clip marker was deployed into the cavity, and post deployment mammogram showed retention of up in the breast. Patient tolerated procedure well. Discharge instructions provided.
--- NOTE | 2018-11-19 15:57 | RADIOLOGY REPORT (SQ) ---
EXAM DESCRIPTION: STEREO BREAST BX; BREAST SPECIMEN; RIGHT DIG DX MAMMO NO CHG COMPLETED DATE/TIME: 11/18/2018 11:43 am; 11/13/2018 9:09 am; 11/12/2018 9:49 am REASON FOR STUDY: MICROCALCS (R92.0); RT BREAST SPECIMEN; R92.0 RIGHT BREAST POST STEREO R92.0 MAMM OGRAPHIC MICROCALCIFICATION FOUND ON DX IMAGING OF COMPARISON: Multiple previous mammograms LIMITATIONS: None. PROCEDURE: Vacuum-assisted stereotactic-guided biopsy of the lesion in the right breast targeted and performed by Dr. Zepeda, the operating surgeon. Procedure and post-procedure imaging interpreted by a radiologist. Using stereotactic guidance, a vacuum-assisted core biopsy of the targeted lesion was performed. A p ellet clip was deployed at the biopsy site. Post procedure image reveals the clip at the biopsy site . TECHNIQUE: Images from the stereotactic unit acquired during the procedure. Specimen radiography performed. Yes. Post- procedure image acquired post-clip placement. Yes. Post procedure 2 view mammograms performed in the mammography suite for clip placement. Yes. FINDINGS: SPECIMEN RADIOGRAPH:Calcifications identified.. POST PROCEDURE MAMMOGRAMS FOR MARKER PLACEMENT: Yes. POST PROCEDURE MAMMOGRAM: Clip is in expected location. No significant hematoma. PATHOLOGY: Fibroadenoma with stromal calcifications. No malignancy CONCORDANT: Yes. The operating surgeon was notified of the findings. IMPRESSION: SUCCESSFUL STEREOTACTIC-GUIDED BIOPSY OF LESION IN THE RIGHT BREAST. BIOPSY RESULTS ARE CONCORDANT WITH IMAGING FINDINGS. FOLLOW-UP: BI-RADS 2, benign findings. Patient should resume bilateral screening in September 2019 COMMENT: Please resume bilateral screening mammography/ tomosynthesis in September 2019. TECHNICAL DOCUMENTATION: JOB ID: [id number] [employer]- All Rights Reserved Reading location - IP/workstation name: [email or web address]
== END ==
LOC: RAD 07:51
PROVIDERS: ATTEND Surgery
DX: R92.0 Mammographic microcalcification found on diagnostic imaging of breast (principal); D24.1 Benign neoplasm of right breast
CPT/HCPCS: 88305 ×2; 19081; J3490

== ENCOUNTER → 2018-11-13 | Outpatient (CLI) | payer MEDICARE, MEDICAID | LOC: WI 08:59 | PROVIDERS: ATTEND Family Medicine | DX: R92.0 Mammographic microcalcification found on diagnostic imaging of breast (principal) | CPT/HCPCS: 76098 ==

== ENCOUNTER → 2018-12-15 | Outpatient (CLI) | payer MEDICARE, MEDICAID ==
[2018-12-15 12:58] LABS: ABSOLUTE EOSINOPHILS # (AUTO) 0.1 10^3/uL (0.0-0.6); ABSOLUTE LYMPHOCYTES (AUTO) 1.2 10^3/uL (0.5-4.7); ABSOLUTE MONOCYTES (AUTO) 0.3 10^3/uL (0.1-1.4); ABSOLUTE NEUT (AUTO) 1.4 10^3/uL (1.7-8.2); BASOPHILS % (AUTO) 0.2 % (0-2); EOSINOPHILS % (AUTO) 2.4 % (0-6); HEMATOCRIT 34.8 % (36.0-47.0); HEMOGLOBIN 11.6 g/dL (12.0-15.5); LYMPHOCYTES % (AUTO) 39.8 % (13-45); MEAN CORPUSCULAR HEMOGLOBIN 26.1 pg (27.0-33.4); MEAN CORPUSCULAR HGB CONC 33.3 g/dL (32.0-36.0); MEAN CORPUSCULAR VOLUME 78 fl (80-97); PLATELET COUNT 176 10^3/uL (150-450); RED BLOOD COUNT 4.45 10^6/uL (3.72-5.28); RED CELL DISTRIBUTION WIDTH 14.5 % (11.5-14.0); SEGMENTED NEUTROPHILS % (AUTO) 46.6 % (42-78); TOTAL CELLS COUNTED % (AUTO) 100 %
[2018-12-15 13:13] LABS: APPEARANCE,URINE CLEAR; BILIRUBIN,URINE NEGATIVE (NEGATIVE); COLOR,URINE YELLOW; GLUCOSE, URINE NEGATIVE (NEGATIVE); KETONES,URINE NEGATIVE (NEGATIVE); LEUKOCYTE ESTERASE,URINE LARGE (NEGATIVE); NITRITE,URINE NEGATIVE (NEGATIVE); PROTEIN,URINE NEGATIVE (NEGATIVE); UROBILINOGEN,URINE NEGATIVE mg/dL (<2.0)
[2018-12-15 13:18] LABS: ALBUMIN 4.3 g/dL (3.5-5.0); ANION GAP 13 (5-19); BLOOD UREA NITROGEN 28 mg/dL (7-20); CALCIUM 9.8 mg/dL (8.4-10.2); CARBON DIOXIDE 22 mmol/L (22-30); CHLORIDE 108 mmol/L (98-107); GLUCOSE 121 mg/dL (75-110); PHOSPHORUS 2.9 mg/dL (2.5-4.5)
== END ==
LOC: OD 12:27
PROVIDERS: ATTEND Internal Medicine Nephrology
DX: I12.9 Hypertensive chronic kidney disease with stage 1 through stage 4 chronic kidney disease, or unspecified chronic kidney disease (principal); N18.3 Chronic kidney disease, stage 3 (moderate); E87.5 Hyperkalemia; D63.1 Anemia in chronic kidney disease; N25.81 Secondary hyperparathyroidism of renal origin
CPT/HCPCS: 36415; 80069; 81001; 82043; 82306; 82570; 83970; 85025

== ENCOUNTER → 2019-01-21 | Outpatient (CLI) | payer MEDICARE, MEDICAID ==
--- NOTE | 2019-01-21 12:52 | RADIOLOGY REPORT (SQ) ---
EXAM DESCRIPTION: CAROTID DOPPLER COMPLETED DATE/TIME: 01/21/2019 9:40 am REASON FOR STUDY: BRUIT I10 ESSENTIAL (PRIMARY) HYPERTENSION R09.89 OTH SYMPTOMS AND SIGNS INVOLVI NG THE CIRC AND RESP SY COMPARISON: 05/21/2011 TECHNIQUE: Grayscale ultrasound, Doppler velocity and spectra, and color Doppler images acquired of the extra-cranial carotid and vertebral arteries. Images stored on PACS. LIMITATIONS: None. FINDINGS: RIGHT CAROTID CCA Velocities: Within normal limits. ICA Velocities Peak systolic 58 cm/s. End diastolic 11 cm/s. Proximal ICA/CCA peak systolic ratio 0.63. Spectral normal. Grayscale evaluation without significant plaque. LEFT CAROTID CCA Velocities: Within normal limits. ICA Velocities Peak systolic 71 cm/s. End diastolic 15 cm/s. Proximal ICA/CCA peak systolic ratio 0.93. Normal spectral waveform. Grayscale evaluation without significant plaque. VERTEBRAL ARTERIES: Antegrade flow. Normal waveforms. SUBCLAVIAN ARTERIES: Not imaged. OTHER: No other significant finding. IMPRESSION: NO HEMODYNAMICALLY SIGNIFICANT STENOSIS. COMMENT: Quality ID #195: Velocity criteria are extrapolated from the diameter data as defined by t he Society of Radiologists in Ultrasound Consensus Conference. Radiology 2003: 229; 340-346. TECHNICAL DOCUMENTATION: JOB ID: [id number] [employer]- All Rights Reserved Reading location - IP/workstation name: [email or web address]
== END ==
LOC: SP 08:22
PROVIDERS: ATTEND Family Medicine
DX: I10 Essential (primary) hypertension (principal); R09.89 Other specified symptoms and signs involving the circulatory and respiratory systems
CPT/HCPCS: 93880

== ENCOUNTER → 2019-03-17 | Outpatient (CLI) | payer MEDICARE, MEDICAID ==
[2019-03-17 10:53] LABS: ABSOLUTE LYMPHOCYTES (AUTO) 0.8 10^3/uL (0.5-4.7); ABSOLUTE MONOCYTES (AUTO) 0.2 10^3/uL (0.1-1.4); ABSOLUTE NEUT (AUTO) 1.6 10^3/uL (1.7-8.2); BASOPHILS % (AUTO) 0.4 % (0-2); HEMATOCRIT 34.2 % (36.0-47.0); HEMOGLOBIN 11.3 g/dL (12.0-15.5); LYMPHOCYTES % (AUTO) 29.5 % (13-45); MEAN CORPUSCULAR HEMOGLOBIN 26.6 pg (27.0-33.4); MEAN CORPUSCULAR HGB CONC 32.9 g/dL (32.0-36.0); MEAN CORPUSCULAR VOLUME 81 fl (80-97); MONOCYTES % (AUTO) 7.2 % (3-13); PLATELET COUNT 204 10^3/uL (150-450); RED BLOOD COUNT 4.23 10^6/uL (3.72-5.28); RED CELL DISTRIBUTION WIDTH 15.5 % (11.5-14.0); SEGMENTED NEUTROPHILS % (AUTO) 61.9 % (42-78); TOTAL CELLS COUNTED % (AUTO) 100 %; WHITE BLOOD COUNT 2.6 10^3/uL (4.0-10.5)
[2019-03-17 11:15] LABS: ANION GAP 12 (5-19); BLOOD UREA NITROGEN 21 mg/dL (7-20); CALCIUM 9.4 mg/dL (8.4-10.2); CARBON DIOXIDE 23 mmol/L (22-30); CHLORIDE 103 mmol/L (98-107); GLUCOSE 100 mg/dL (75-110); POTASSIUM 4.9 mmol/L (3.6-5.0)
== END ==
LOC: OD 10:01
PROVIDERS: ATTEND Internal Medicine Nephrology
DX: I12.9 Hypertensive chronic kidney disease with stage 1 through stage 4 chronic kidney disease, or unspecified chronic kidney disease (principal); N18.3 Chronic kidney disease, stage 3 (moderate); N25.81 Secondary hyperparathyroidism of renal origin; D64.9 Anemia, unspecified
CPT/HCPCS: 36415; 80048; 83970; 85025

== ENCOUNTER → 2019-03-26 | Outpatient (CLI) | payer MEDICARE, MEDICAID ==
--- NOTE | 2019-03-26 17:46 | RADIOLOGY REPORT (SQ) ---
EXAM DESCRIPTION: SHOULDER RIGHT 2 OR MORE VIEWS COMPLETED DATE/TIME: 03/26/2019 3:01 pm REASON FOR STUDY: M25.511 PAIN IN RIGHT SHOULDER M25.511 PAIN IN RIGHT SHOULDER COMPARISON: None. NUMBER OF VIEWS: Three views. TECHNIQUE: Internal rotation, external rotation, and Y view images acquired of the right shoulder. LIMITATIONS: None. FINDINGS: MINERALIZATION: Normal. BONES: Possible acromial resection. No fracture. JOINTS: Marginal osteophytes is seen on the femoral head. Subacromial space is narrowed. VISUALIZED LUNGS AND RIBS: No pneumothorax. No rib fracture. SOFT TISSUES: No radiopaque foreign body. OTHER: No other significant finding. IMPRESSION: Glenohumeral degenerative joint disease. Narrowing of the subacromial space suggests lo ngstanding rotator cuff disease. Possible acromial resection. TECHNICAL DOCUMENTATION: JOB ID: [id number] 2010 [employer]- All Rights Reserved Reading location - IP/workstation name: [email or web address]
== END ==
LOC: RAD 14:46
PROVIDERS: ATTEND Family Medicine
DX: M25.511 Pain in right shoulder (principal)

== ENCOUNTER → 2019-06-22 | Outpatient (CLI) | payer MEDICARE, MEDICAID | LOC: WI 09:15 | PROVIDERS: ATTEND Surgery | DX: R92.0 Mammographic microcalcification found on diagnostic imaging of breast (principal) | CPT/HCPCS: 77065; G0279 ==

== ENCOUNTER → 2019-06-30 | Outpatient (CLI) | payer MEDICARE, MEDICAID ==
--- NOTE | 2019-06-30 12:34 | RADIOLOGY REPORT (SQ) ---
EXAM DESCRIPTION: CT ABD/PELVIS WITH IV ORAL IMAGES COMPLETED DATE/TIME: 06/30/2019 11:26 am REASON FOR STUDY: R10.12 LEFT UPPER QUADRANT PAIN R10.12 LEFT UPPER QUADRANT PAIN COMPARISON: 03/08/2016 TECHNIQUE: CT scan of the abdomen and pelvis performed using helical scanning technique with dynamic intravenous contrast injection. No oral contrast. Images reviewed with lung, soft tissue, and bone windows. Reconstructed coronal and sagittal MPR images reviewed. Delayed images for evaluation of the urinary system also acquired. All images stored on PACS. All CT scanners at this facility use dose modulation, iterative reconstruction, and/or weight based d osing when appropriate to reduce radiation dose to as low as reasonably achievable (ALARA). [facility]: Dose Right [facility]: CareDose [facility]: Dose Right [facility]: Teradose 4D [facility]: Voxware CONTRAST TYPE AND DOSE: contrast/concentration: Isovue 300.00 mg/ml; Total Contrast Delivered: 100.0 ml; Total Saline Delivered: 72.0 ml RENAL FUNCTION: Creatinine 1.7 RADIATION DOSE: CT Rad equipment meets quality standard of care and radiation dose reduction techniq ues were employed. CTDIvol: 16.1 mGy. DLP: 1773 mGy-cm.. LIMITATIONS: None. FINDINGS: LOWER CHEST: No significant findings. No nodules or infiltrates. LIVER: Normal size. No masses. No dilated ducts. SPLEEN: Normal size. No focal lesions. PANCREAS: 2.5 x 3.2 cm pancreatic mass. This is situated within the body of the pancreas. There is mild ductal dilatation distal to the lesion. Neoplasm is suspected. GALLBLADDER: No identified stones by CT criteria. No inflammatory changes to suggest cholecystitis. ADRENAL GLANDS: No significant masses or asymmetry. RIGHT KIDNEY AND URETER: No solid masses. No significant calcifications. No hydronephrosis or hyd roureter. LEFT KIDNEY AND URETER: No solid masses. No significant calcifications. No hydronephrosis or hydr oureter. AORTA AND VESSELS: No aneurysm. No dissection. Renal arteries, SMA, celiac without stenosis. RETROPERITONEUM: No retroperitoneal adenopathy, hemorrhage or masses. BOWEL AND PERITONEAL CAVITY: No masses or inflammatory changes. No free fluid or peritoneal masses. APPENDIX: Not visualized. PELVIS: No mass. No free fluid. Normal bladder. ABDOMINAL WALL: No masses. No hernias. BONES: No significant or acute findings. OTHER: No other significant finding. IMPRESSION: 2.5 x 3.2 cm mass in the body of the pancreas. Neoplasm is suspected. No other signifi cant findings. TECHNICAL DOCUMENTATION: JOB ID: [id number] Quality ID # 436: Final reports with documentation of one or more dose reduction techniques (e.g., Au tomated exposure control, adjustment of the mA and/or kV according to patient size, use of iterative reconstruction technique) 2010 [employer]- All Rights Reserved Reading location - IP/workstation name: [email or web address]
== END ==
LOC: RAD 10:03
PROVIDERS: ATTEND Internal Medicine Gastroenterology
DX: K86.89 Other specified diseases of pancreas (principal); R10.12 Left upper quadrant pain
CPT/HCPCS: 74177; 82565

== ENCOUNTER → 2019-07-08 | Outpatient (CLI) | payer MEDICARE, MEDICAID ==
[2019-07-08 11:59] LABS: ABSOLUTE LYMPHOCYTES (AUTO) 0.8 10^3/uL (0.5-4.7); ABSOLUTE MONOCYTES (AUTO) 0.3 10^3/uL (0.1-1.4); ABSOLUTE NEUT (AUTO) 2.5 10^3/uL (1.7-8.2); BASOPHILS % (AUTO) 0.1 % (0-2); EOSINOPHILS % (AUTO) 0.5 % (0-6); HEMATOCRIT 34.9 % (36.0-47.0); HEMOGLOBIN 11.7 g/dL (12.0-15.5); LYMPHOCYTES % (AUTO) 22.3 % (13-45); MEAN CORPUSCULAR HEMOGLOBIN 26.5 pg (27.0-33.4); MEAN CORPUSCULAR HGB CONC 33.5 g/dL (32.0-36.0); MEAN CORPUSCULAR VOLUME 79 fl (80-97); MONOCYTES % (AUTO) 9.2 % (3-13); PLATELET COUNT 194 10^3/uL (150-450); RED BLOOD COUNT 4.41 10^6/uL (3.72-5.28); RED CELL DISTRIBUTION WIDTH 15.8 % (11.5-14.0); SEGMENTED NEUTROPHILS % (AUTO) 67.9 % (42-78); TOTAL CELLS COUNTED % (AUTO) 100 %; WHITE BLOOD COUNT 3.8 10^3/uL (4.0-10.5)
[2019-07-08 12:28] LABS: ALBUMIN 4.4 g/dL (3.5-5.0); ALKALINE PHOSPHATASE 74 U/L (38-126); ANION GAP 15 (5-19); ASPARTATE AMINO TRANSFERASE 22 U/L (14-36); BILIRUBIN,DIRECT 0.1 mg/dL (0.0-0.4); BILIRUBIN,TOTAL 0.8 mg/dL (0.2-1.3); BLOOD UREA NITROGEN 27 mg/dL (7-20); CALCIUM 9.8 mg/dL (8.4-10.2); CARBON DIOXIDE 21 mmol/L (22-30); CHLORIDE 98 mmol/L (98-107); GLUCOSE 106 mg/dL (75-110); IRON(TIBC) 89.8 ug/dL (37-170); POTASSIUM 4.1 mmol/L (3.6-5.0)
== END ==
LOC: OD 11:02
PROVIDERS: ATTEND Internal Medicine Hematology & Oncology
DX: K86.9 Disease of pancreas, unspecified (principal); R10.13 Epigastric pain; N18.9 Chronic kidney disease, unspecified; D63.1 Anemia in chronic kidney disease
CPT/HCPCS: 36415; 80053; 82728; 83540; 83550; 85025; 86301

== ENCOUNTER → 2019-07-15 | Outpatient (CLI) | payer MEDICARE, MEDICAID ==
[2019-07-15 11:58] LABS: ABSOLUTE LYMPHOCYTES (AUTO) 0.8 10^3/uL (0.5-4.7); ABSOLUTE MONOCYTES (AUTO) 0.2 10^3/uL (0.1-1.4); ABSOLUTE NEUT (AUTO) 1.2 10^3/uL (1.7-8.2); BASOPHILS % (AUTO) 0.6 % (0-2); EOSINOPHILS % (AUTO) 0.7 % (0-6); HEMATOCRIT 34.4 % (36.0-47.0); HEMOGLOBIN 11.5 g/dL (12.0-15.5); LYMPHOCYTES % (AUTO) 35.7 % (13-45); MEAN CORPUSCULAR HEMOGLOBIN 26.1 pg (27.0-33.4); MEAN CORPUSCULAR HGB CONC 33.5 g/dL (32.0-36.0); MEAN CORPUSCULAR VOLUME 78 fl (80-97); MONOCYTES % (AUTO) 9.2 % (3-13); PLATELET COUNT 199 10^3/uL (150-450); RED BLOOD COUNT 4.41 10^6/uL (3.72-5.28); RED CELL DISTRIBUTION WIDTH 15.9 % (11.5-14.0); SEGMENTED NEUTROPHILS % (AUTO) 53.8 % (42-78); TOTAL CELLS COUNTED % (AUTO) 100 %; WHITE BLOOD COUNT 2.3 10^3/uL (4.0-10.5)
[2019-07-15 12:19] LABS: ALBUMIN 4.2 g/dL (3.5-5.0); ANION GAP 11 (5-19); BLOOD UREA NITROGEN 19 mg/dL (7-20); CALCIUM 9.8 mg/dL (8.4-10.2); CARBON DIOXIDE 23 mmol/L (22-30); CHLORIDE 99 mmol/L (98-107); GLUCOSE 121 mg/dL (75-110); IRON(TIBC) 111.1 ug/dL (37-170); PHOSPHORUS 3.5 mg/dL (2.5-4.5); POTASSIUM 3.8 mmol/L (3.6-5.0)
== END ==
LOC: OD 11:32
PROVIDERS: ATTEND Internal Medicine Nephrology
DX: I12.9 Hypertensive chronic kidney disease with stage 1 through stage 4 chronic kidney disease, or unspecified chronic kidney disease (principal); N18.3 Chronic kidney disease, stage 3 (moderate); D63.1 Anemia in chronic kidney disease; N25.81 Secondary hyperparathyroidism of renal origin
CPT/HCPCS: 36415; 80069; 82306; 82728; 83540; 83550; 83970; 85025

== ENCOUNTER 2019-07-21 09:23 | Emergency (ER) | payer MEDICARE, MEDICAID ==
--- NOTE | 2019-07-21 09:53 | RADIOLOGY REPORT (SQ) ---
EXAM DESCRIPTION: CT HEAD WITHOUT IMAGES COMPLETED DATE/TIME: 07/21/2019 9:39 am REASON FOR STUDY: Stroke Alert; Left sided deficit COMPARISON: CT of the head without contrast from 08/24/2018. TECHNIQUE: Axial images acquired through the brain without intravenous contrast. Images reviewed wi th bone, brain and subdural windows. Additional sagittal and coronal reconstructions were generated. Images stored on PACS. All CT scanners at this facility use dose modulation, iterative reconstruction, and/or weight based d osing when appropriate to reduce radiation dose to as low as reasonably achievable (ALARA). [facility]: Dose Right [facility]: CareDose [facility]: Dose Right [facility]: Teradose 4D [facility]: Nova Ratio LIMITATIONS: None. FINDINGS: There is no acute intracranial hemorrhage, vascular territorial infarct, extra-axial fluid collection, mass effect or midline shift. The fischer-white matter differentiation is preserved. Ther e is no effacement of the cerebral sulci or basal subarachnoid cisterns. The caliber of the ventricl es is concordant with the degree of sulcation. There is mild hyperostosis frontalis interna. The orbits and globes are intact. The paranasal sinus es are clear. There is no fracture of the calvarium. IMPRESSION: No acute intracranial abnormality. EVIDENCE OF ACUTE STROKE: NO. COMMENT: This report was called to Dr. Leong At 09:46 on 07/21/2019. Quality ID # 436: Final reports with documentation of one or more dose reduction techniques (e.g., Au tomated exposure control, adjustment of the mA and/or kV according to patient size, use of iterative reconstruction technique) TECHNICAL DOCUMENTATION: JOB ID: [id number] 2010 [employer]- All Rights Reserved Reading location - IP/workstation name: [email or web address]-
--- NOTE | 2019-07-21 09:54 | RADIOLOGY REPORT (SQ) ---
EXAM DESCRIPTION: CHEST SINGLE VIEW IMAGES COMPLETED DATE/TIME: 07/21/2019 9:39 am REASON FOR STUDY: STROKE ALERT COMPARISON: AP view of the chest from 07/08/2018. EXAM PARAMETERS: NUMBER OF VIEWS: One view. TECHNIQUE: An AP view of the chest was obtained. RADIATION DOSE: NA LIMITATIONS: None. FINDINGS: LUNGS AND PLEURA: Strands of atelectasis or scar in the inferior aspect of the right hemit horax. There is no consolidation, sizeable pleural effusion or pneumothorax. MEDIASTINUM AND HILAR STRUCTURES: No mediastinal or hilar contour abnormality. HEART AND VASCULAR STRUCTURES: The cardiac silhouette and pulmonary vasculature are within normal wade its. BONES: No acute findings. HARDWARE: None in the chest. OTHER: No other finding. IMPRESSION: No acute cardiopulmonary process. TECHNICAL DOCUMENTATION: JOB ID: [id number] 2010 [employer]- All Rights Reserved Reading location - IP/workstation name: [email or web address]
[2019-07-21 10:23] LABS: ABSOLUTE LYMPHOCYTES (AUTO) 0.8 10^3/uL (0.5-4.7); ABSOLUTE MONOCYTES (AUTO) 0.3 10^3/uL (0.1-1.4); ABSOLUTE NEUT (AUTO) 1.8 10^3/uL (1.7-8.2); BASOPHILS % (AUTO) 0.4 % (0-2); EOSINOPHILS % (AUTO) 0.9 % (0-6); HEMATOCRIT 34.2 % (36.0-47.0); HEMOGLOBIN 11.4 g/dL (12.0-15.5); LYMPHOCYTES % (AUTO) 27.1 % (13-45); MEAN CORPUSCULAR HEMOGLOBIN 26.9 pg (27.0-33.4); MEAN CORPUSCULAR HGB CONC 33.4 g/dL (32.0-36.0); MEAN CORPUSCULAR VOLUME 80 fl (80-97); MONOCYTES % (AUTO) 10.6 % (3-13); PLATELET COUNT 220 10^3/uL (150-450); RED BLOOD COUNT 4.26 10^6/uL (3.72-5.28); RED CELL DISTRIBUTION WIDTH 16.2 % (11.5-14.0); TOTAL CELLS COUNTED % (AUTO) 100 %
--- NOTE | 2019-07-21 10:26 | ER Document Report ---
ED General - General Chief Complaint: Numbness Stated Complaint: CHEST PAIN Time Seen by Provider: 07/21/19 10:06 Primary Care Provider: RYDER HERNANDEZ MD [Primary Care Provider] - Follow up as needed Information source: Patient TRAVEL OUTSIDE OF THE [place] IN LAST 30 DAYS: No - HPI Onset: Just prior to arrival Onset/Duration: Sudden Quality of pain: No pain Severity: Moderate Pain Level: 2 Associated symptoms: None Exacerbated by: Denies Relieved by: Denies Similar symptoms previously: Yes Recently seen / treated by doctor: No Notes: 73 year old female with a history of CAD, CVA, HTN, HLD, DM, FUENTES, CKD, GERD here in the ER for chest pain along with left sided arm weakness, numbness and tingling. The patient says the symptoms started shortly before ER arrival. The patient is tearful on ER arrival and tells me she is under a great deal of stress due to recently being diagnosed with pancreatic cancer. The patient is unsure if the chest pain she is having is referred from her epigastric area or not. The patient says she always has some residual weakness in her left arm from her previous stroke but today she had trouble holding her left arm above her head on her own. - Related Data Allergies/Adverse Reactions: betamethasone [Betamethasone] Allergy (Intermediate, Verified 07/21/19 09:42) burning skin ceftriaxone sodium [From Rocephin] Allergy (Intermediate, Verified 07/21/19 09:42) Urticaria ciprofloxacin [From Cipro] Allergy (Intermediate, Verified 07/21/19 09:42) Urticaria clindamycin [Clindamycin] Allergy (Intermediate, Verified 07/21/19 09:42) Urticaria clotrimazole [Clotrimazole] Allergy (Intermediate, Verified 07/21/19 09:42) burning skin diphenhydramine HCl [From Benadryl] Allergy (Intermediate, Verified 07/21/19 09:42) Urticaria doxycycline [Doxycycline] Allergy (Intermediate, Verified 07/21/19 09:42) Urticaria latex [Latex] Allergy (Intermediate, Verified 07/21/19 09:42) Urticaria metronidazole [From Flagyl] Allergy (Intermediate, Verified 07/21/19 09:42) Urticaria oxycodone [Oxycodone] Allergy (Intermediate, Verified 07/21/19 09:42) Penicillins Allergy (Intermediate, Verified 07/21/19 09:42) Urticaria Sulfa (Sulfonamide Antibiotics) Allergy (Intermediate, Verified 07/21/19 09:42) Urticaria hydrocodone bitartrate [From Vicodin] Allergy (Verified 07/21/19 09:42) mupirocin [From Bactroban] Allergy (Verified 07/21/19 09:42) aspirin [Aspirin] Adverse Reaction (Mild, Verified 07/21/19 09:42) Nausea PAPER TAPE Allergy (Uncoded 07/21/19 09:42) Blisters Past Medical History - General Information source: Patient - Social History Smoking Status: Never Smoker Frequency of alcohol use: None Drug Abuse: None Family History: Reviewed & Not Pertinent, CAD, Hypertension, Malignancy - Past Medical History Cardiac Medical History: Reports: Hx Coronary Artery Disease, Hx Heart Attack - x 4, Hx Hypercholesterolemia, Hx Hypertension Pulmonary Medical History: Reports: Hx Bronchitis, Hx Pneumonia, Hx Sleep Apnea Denies: Hx Asthma, Hx COPD, Hx Tuberculosis Neurological Medical History: Reports: Hx Cerebrovascular Accident - Multiple st rokes in the past, only residual is minor left-sided weakness.. Denies: Hx Seizures Endocrine Medical History: Reports: Hx Diabetes Mellitus Type 1, Hx Diabetes Mellitus Type 2 Renal/ Medical History: Reports: Hx Renal Insufficiency. Denies: Hx P eritoneal Dialysis GI Medical History: Reports: Hx Gastroesophageal Reflux Disease, Hx Irritable Bowel, Hx Pancreatitis Musculoskeletal Medical History: Reports Hx Arthritis Psychiatric Medical History: Reports: Hx Depression Infectious Medical History: Denies: Hx HIV Past Surgical History: Reports: Hx Appendectomy, Hx Cardiac Catheterization, Hx Coronary Stent, Hx Hysterectomy, Hx Orthopedic Surgery - Bilateral total knee replacements. Bilateral shoulder surgeries., Hx Tonsillectomy, Hx Umbilical Hernia. Denies: Hx Cardiac Surgery - Immunizations Hx Diphtheria, Pertussis, Tetanus Vaccination: Yes Hx Pneumococcal Vaccination: 04/24/10 Review of Systems - Review of Systems Constitutional: No symptoms reported EENT: No symptoms reported Cardiovascular: Chest pain Respiratory: No symptoms reported Gastrointestinal: Abdominal pain Genitourinary: No symptoms reported Female Genitourinary: No symptoms reported Musculoskeletal: No symptoms reported Skin: No symptoms reported Hematologic/Lymphatic: No symptoms reported Neurological/Psychological: Anxiety, Numbness - of left arm, Tingling - of left arm Physical Exam - Vital signs Vitals: Temp 98.6 F 07/21/19 09:23 - Notes Notes: GENERAL: Well-appearing, well-nourished and in no acute distress. HEAD: Atraumatic, normocephalic. EYES: Pupils equal round and reactive to light, extraocular movements intact, sclera anicteric, conjunctiva are normal. ENT: External ears normal, nares patent, oropharynx clear without exudates. Moist mucous membranes. NECK: Normal range of motion, supple without lymphadenopathy or JVD. LUNGS: Breath sounds clear to auscultation bilaterally and equal. No wheezes rales or rhonchi. HEART: Regular rate and rhythm without murmurs, rubs or gallops. ABDOMEN: Soft, mild tenderness in epigastric area, normoactive bowel sounds. No guarding, no rebound. No masses appreciated. EXTREMITIES: Normal range of motion, no pitting or edema. No clubbing or cyanosis. NEUROLOGICAL: Cranial nerves II through XII grossly intact. Normal speech. Mild left arm weakness but she is still able to hold it against gravity. NIH of 0. PSYCH: Normal mood, normal affect. SKIN: Warm, Dry, normal turgor, no rashes or lesions noted. Course - Re-evaluation Re-evalutation: 07/21/19 16:00 The patient has been going through a lot of stress as of late due to a recent diagnosis of pancreatic cancer. The patient acknowledges this as the likely cause of her chest pain and generalized weakness today. Patient was rather emotional when talking about her diagnosis which is completely normal. Patient had serial Troponins which were negative and she had a CT head showing no acute process. I spoke with the patient's PCP and he has an appointment with her tomorrow for follow up. Patient has had a prior RI and Stroke in the past so that is why she came in today for evaluation of her symptoms. Patient and family agree with the plan of outpatient follow up. - Vital Signs Vital signs: Temp Pulse Resp BP Pulse Ox 97.6 F 59 L 14 113/65 100 07/21/19 15:08 07/21/19 15:08 07/21/19 15:08 07/21/19 15:08 07/21/19 15:08 - Laboratory Result Diagrams: 07/21/19 09:58 07/21/19 09:58 Laboratory results interpreted by me: 07/21/19 07/21/19 07/21/19 09:58 09:58 09:58 WBC 3.0 L Hgb 11.4 L Hct 34.2 L MCH 26.9 L RDW 16.2 H Sodium 131.7 L Est GFR ( Amer) 56 L Est GFR (MDRD) Non-Af 47 L Magnesium 1.5 L NT-Pro-B Natriuret Pep 1500 H - Diagnostic Test Radiology reviewed: Image reviewed, Reports reviewed - EKG Interpretation by Me EKG shows normal: Sinus rhythm Rate: Normal Rhythm: NSR Canute/QRS: Left axis deviation, RBBB When compared to previous EKG there are: No significant change Additional EKG results interpreted by me: 07/21/19 10:42 intraventricular conduction delay Discharge - Discharge Clinical Impression: Weakness Chest pain Qualifiers: Chest pain type: unspecified Qualified Code(s): R07.9 - Chest pain, unspecified Condition: Stable Disposition: HOME, SELF-CARE Instructions: Anxiety ([facility]), Chest Pain of Unclear Cause ([facility]), Weakness ([facility]) Additional Instructions: Follow up with your primary care doctor and tell him about your ER visit for chest pain and generalized weakness. You had blood work, a CT head, and a urine analysis in the ER. Return to an ER for signs or symptoms of a heart attack or stroke or if you are worse in anyway. Follow up with your primary care doctor as scheduled tomorrow. Referrals: RYDER HERNANDEZ MD [Primary Care Provider] - Follow up as needed
[2019-07-21 10:38] LABS: ALBUMIN 3.8 g/dL (3.5-5.0); ALKALINE PHOSPHATASE 69 U/L (38-126); ANION GAP 9 (5-19); ASPARTATE AMINO TRANSFERASE 25 U/L (14-36); BILIRUBIN,DIRECT 0.1 mg/dL (0.0-0.4); BILIRUBIN,TOTAL 1.1 mg/dL (0.2-1.3); BLOOD UREA NITROGEN 15 mg/dL (7-20); CALCIUM 9.1 mg/dL (8.4-10.2); CARBON DIOXIDE 24 mmol/L (22-30); CHLORIDE 99 mmol/L (98-107); CREATINE KINASE 65 U/L (30-135); GLUCOSE 105 mg/dL (75-110); POTASSIUM 4.3 mmol/L (3.6-5.0); TOTAL PROTEIN 7.5 g/dL (6.3-8.2)
[2019-07-21 10:53] LABS: CREATINE KINASE MB 0.32 ng/mL (<4.55); TROPONIN I 0.013 ng/mL
[2019-07-21] MEDS ORDERED: LORAZEPAM 0.5 MG TABLET PO ONE (11:06)
--- NOTE | 2019-07-21 11:09 | EKG REPORT ---
SEVERITY:- ABNORMAL ECG - SINUS RHYTHM IVCD, CONSIDER ATYPICAL RBBB ANTERIOR Q WAVES, POSSIBLY DUE TO LVH : Confirmed by: Lissette Blankenship MD 21-Jul-2019 11:08:49
[2019-07-21 14:10] VITALS: BP 113/65
== END 2019-07-21 15:10 | disposition home or self-care (01) ==
LOC: ER 09:23
DX: R53.1 Weakness (principal); F41.9 Anxiety disorder, unspecified; R07.9 Chest pain, unspecified; R20.0 Anesthesia of skin; R20.2 Paresthesia of skin; R10.9 Unspecified abdominal pain; R10.816 Epigastric abdominal tenderness; I69.334 Monoplegia of upper limb following cerebral infarction affecting left non-dominant side; I45.10 Unspecified right bundle-branch block; I25.10 Atherosclerotic heart disease of native coronary artery without angina pectoris; I10 Essential (primary) hypertension; I25.2 Old myocardial infarction; E11.9 Type 2 diabetes mellitus without complications; Z88.8 Allergy status to other drugs, medicaments and biological substances; Z88.1 Allergy status to other antibiotic agents; Z91.041 Radiographic dye allergy status; Z88.6 Allergy status to analgesic agent; Z88.5 Allergy status to narcotic agent; Z88.0 Allergy status to penicillin; Z88.2 Allergy status to sulfonamides; Z91.048 Other nonmedicinal substance allergy status; Z82.49 Family history of ischemic heart disease and other diseases of the circulatory system
CPT/HCPCS: 93005; 99285; 36415; 82553; 82550; 83690; 83735; 85025; 80053; 84484; 83880; 71045; 70450; 93010; A9270

== ENCOUNTER → 2019-08-30 | Outpatient (CLI) | payer MEDICARE, MEDICAID ==
--- NOTE | 2019-08-30 16:39 | RADIOLOGY REPORT (SQ) ---
EXAM DESCRIPTION: VENOUS UNILATERAL LOWER IMAGES COMPLETED DATE/TIME: 08/30/2019 4:32 pm REASON FOR STUDY: LLE SWELLING R22.42 LOCALIZED SWELLING, MASS AND LUMP, LEFT LOWER LIMB COMPARISON: None. TECHNIQUE: Dynamic and static fischer scale and color images acquired of the left leg venous system. Se lected spectral images acquired with additional compression and augmentation maneuvers. The contralat eral common femoral vein and saphenofemoral junction were also imaged. Images stored on PACS. LIMITATIONS: None. FINDINGS: COMMON FEMORAL: Normal phasicity, compression and augmentation. No visualized echogenic ma terial on fischer scale. No defects on color images. FEMORAL: Normal compression and augmentation. No visualized echogenic material on fischer scale. No defe cts on color images. POPLITEAL: Normal compression, augmentation. No visualized echogenic material on fischer scale. No defec ts on color images. CALF VESSELS: Normal compression, augmentation. No visualized echogenic material on fischer scale. No de fects on color images. GSV and SSV: Normal compression, augmentation. No visualized echogenic material on fischer scale. No def ects on color images. ANY DEEP VENOUS INSUFFICIENCY: Not evaluated. ANY EVIDENCE OF POPLITEAL CYST: No. OTHER: No other significant finding. CONTRALATERAL COMMON FEMORAL VEIN AND SAPHENOFEMORAL JUNCTION: Normal phasicity, compression and augmentation. No visualized echogenic material on fischer scale. No de fects on color images. IMPRESSION: NO EVIDENCE DVT OR SVT IN THE LEFT LEG. TECHNICAL DOCUMENTATION: JOB ID: [id number] 2010 [employer]- All Rights Reserved Reading location - IP/workstation name: [email or web address]
== END ==
LOC: RAD 15:15
PROVIDERS: ATTEND Internal Medicine Gastroenterology
DX: R22.42 Localized swelling, mass and lump, left lower limb (principal)
CPT/HCPCS: 93971